=== PATIENT | female | born 1940 | race Caucasian/White ===

== ENCOUNTER 2017-06-16 07:29 | Inpatient (IN) ==
[2017-06-16] MEDS ORDERED: 0.9 % Sodium Chloride 1,000 ML IVC SCH ×2 (08:00→11:25)
[2017-06-16] MEDS ORDERED: *HR* FentaNYL (PF) 100 MCG/2 ML VIAL ONE ×3 (08:30→21:01)
[2017-06-16] MEDS ORDERED: *HR* Midazolam HCl 5 MG/5 ML VIAL IVP ONE ×2 (08:30→08:50)
[2017-06-16] MEDS ORDERED: *HR* FentaNYL (PF) 100 MCG/2 ML VIAL IVP ONE (08:50)
[2017-06-16] MEDS ORDERED: Simethicone 40 MG/0.6 ML MLS IR ONE (08:50)
--- NOTE | 2017-06-16 08:50 | History & Physical Report ---
Date of Encounter: 06/16/17 Time of Encounter: 08:49 24 Hour HP Update - Instructions Instructions: If the History and Physical is less than 30 days old and was completed prior to A.M. admission and or procedure and has NOT been updated on calendar day of procedure please complete this update prior to performing procedure. - Update Patient reports changes in Medical Condition: No Changes in examination, assessment, or condition: No Changes in Medication: No Preop tests/diagnostics Reviewed: Yes Surgery Remains Indicated: Yes Consent for Planned Operative Procedure(s) Verified: Yes
--- NOTE | 2017-06-16 08:51 | Pre-Sedation Evaluation ---
Pre-sedation evaluation - Pre-sedation checklist Date of procedure: 06/16/17 Procedure: egd/colon Recent Vitals: Last Vital Signs Temp 98.4 F 06/16/17 07:58 Pulse 92 06/16/17 07:58 Resp 16 06/16/17 07:58 BP 147/87 06/16/17 07:58 Pulse Ox 99 06/16/17 07:46 H&P (including ROS) documented in medical record: Yes Previous reaction to sedatives/anesthetics: No Dietary Status: NPO after Midnight Dentition: dentures removed Possible difficult airway: No ASA Classification *see protocol: CLASS II-Mild systemic disease
[2017-06-16] MEDS ORDERED: Ondansetron 4 MG/2 ML VIAL IVP PRN (11:14)
[2017-06-16] MEDS ORDERED: Naloxone 0.4 MG/ML INJ IVP PRN ×2 (11:14→22:35)
[2017-06-16] MEDS ORDERED: *HR* Metoprolol 5 MG/5 ML VIAL IVP PRN (11:22)
[2017-06-16] MEDS ORDERED: Acetaminophen 325 MG TABLET PO PRN ×2 (11:26→22:35)
[2017-06-16 12:36] LABS: Hematocrit 34.5 % (35.3-44.9); Immature Granulocytes % 0.4 % (0-4); Lymphocytes % 17.3 %; Mean Corpuscular HGB Conc 31.9 g/dL (31.6-35.5); Mean Corpuscular Hemoglobin 27.9 pg (28.0-33.3); Mean Corpuscular Volume 87.6 fL (83.0-100.0); Mean Platelet Volume 9.3 fL (9.4-12.4); Platelet Count 246 K/mcL (140-400); Red Blood Count 3.94 M/mcL (3.82-4.97); Red Cell Distribution Width 20.1 % (11.5-14.5)
[2017-06-16 12:37] LABS: Basophils % 0.9 %; Eosinophils # 0.1 K/mcL (0.0-0.6); Eosinophils % 2.7 %; Lymphocytes # 0.8 K/mcL (0.6-4.6); Monocytes # 0.3 K/mcL (0.0-1.3); Monocytes % 6.7 %; Neutrophils # 3.2 K/mcL (1.6-8.9)
[2017-06-16 12:43] LABS: INR 1.1; Prothrombin Time 11.3 Seconds (9.4-12.1)
[2017-06-16 12:50] LABS: Alanine Aminotransferase 15 Units/L (0-55); Albumin 3.4 g/dL (3.5-5.0); Albumin/Globulin Ratio 1.2 (1.1-2.2); Alkaline Phosphatase 83 Units/L (38-126); Aspartate Amino Transferase 17 Units/L (5-34); BUN/Creatinine Ratio 8 (6-26); Bilirubin,Total 0.4 mg/dL (0.2-1.2); Calcium 8.4 mg/dL (8.6-10.8); Carbon Dioxide 25 mEq/L (19-29); Chloride 107 mEq/L (98-109); Globulin 2.9 g/dL (2.4-3.5); Glucose 112 mg/dL (70-99); Osmolality,Calculated 284 (280-300); Potassium 3.9 mEq/L (3.5-4.5); Sodium 138 mEq/L (136-145); Total Protein 6.3 g/dL (6.0-8.3); eGFR For African Americans > 60 (> 60); eGFR For Non-African Americans > 60 (> 60)
[2017-06-16 12:56] LABS: Blood Urea Nitrogen 5 mg/dL (7-20)
[2017-06-16 13:11] LABS: Carcinoembryonic Antigen 3.1 ng/mL (0-5.0)
--- NOTE | 2017-06-16 13:23 | General Surg History&Physical ---
Date of Encounter: 06/16/17 Time of Encounter: 13:00 Assessment and Plan (1) Colonic mass Current Visit: Yes Status: Acute The assessment and plan as outlined above was discussed with the patient and/or family members who expressed understanding and agreement. All questions were answered. Clear liquid diet NPO after midnight IV fluids CT scan of abdomen and pelvis with PO and IV contrast Check labs- CBC, CMP, PT/INR, CEA Supportive care and pain control IS every 1 hour while awake Plan for colon resection with Dr. Germain in the next 24-48 hours. The risks, benefits, alternatives and expected outcomes have been reviewed with the patient and she is in agreement to proceed. (2) GERD (gastroesophageal reflux disease) Current Visit: Yes Status: Chronic The assessment and plan as outlined above was discussed with the patient and/or family members who expressed understanding and agreement. All questions were answered. PPI therapy daily Qualifiers: Esophagitis presence: esophagitis presence not specified Qualified Code(s) : K21.9 - Gastro-esophageal reflux disease without esophagitis (3) DVT prophylaxis Current Visit: No Status: Acute The assessment and plan as outlined above was discussed with the patient and/or family members who expressed understanding and agreement. All questions were answered. EPCDs to bilateral lower extremities for DVT prophylaxis Ambulate hallways TID with assistance History of Present Illness Chief complaint: Colon mass HPI: Ms. Romeo is a 77 year old female who is s/p EGD/Colonoscopy with Dr. Germain today. This was complete for iron deficiency anemia. She was found to have a colonic mass. She has been admitted to the hospital for further work-up and treatment. Please see complete H&P which was complete in [facility] on 05/31/[address] Germain. A copy has been placed in the patient's chart at the nurses station as well as in the medical records folder to be scanned into the patient's chart. Past Med Surg Social Fam HX - Past Medical History Medical history: arthritis, GERD, hyperlipidemia, hypertension, malignancy, osteoporosis, other Psychiatric history: no psych history - Past Surgical History Surgical History: breast surgery, cancer surgery, cataract, cholecystectomy, hysterectomy, sinus surgery, NOA/BSO, other - Social History Smoking Status: Former smoker Smokeless Tobacco Status: No Alcohol use: none Drug use: none - Family History Father Hx Family Cardiac Disorders: Yes Hx Family Cancer: Yes Medications and Allergies Lansoprazole [Prevacid] 30 mg PO DAILY 12/02/15 [History] Multivitamin [Multivitamins] 1 cap PO DAILY 12/02/15 [History] Aspirin [Lo-Dose Aspirin EC] 81 mg PO DAILY 04/02/16 [History] Cholecalciferol (D-3) [Vitamin D] 5,000 unit PO DAILY 04/02/16 [History] Calcium Carb/Vitamin D3/Vit K1 [Calcium + D Soft Chewable Tab] 2 each PO DAILY 11/09/16 [History] 3 Allergy/AdvReac Type Severity Reaction Status Date / Time "pain medications" AdvReac See Uncoded 06/16/17 08:04 Comments/ VOMITING Review of Systems All systems PM: A 10-system review of systems was performed and is negative for pertinent findings except as documented above in the HPI. General Surgery Exam Initial Vital Signs Temp Pulse Resp BP Pulse Ox 98.4 F 92 16 147/87 99 06/16/17 07:46 06/16/17 07:46 06/16/17 07:46 06/16/17 07:46 06/16/17 07:46 Results - Labs 06/16/17 12:11 06/16/17 12:11 Abnormal lab results Hgb 11.0 g/dL (11.5-15.4) L 06/16/17 12:11 Hct 34.5 % (35.3-44.9) L 06/16/17 12:11 MCH 27.9 pg (28.0-33.3) L 06/16/17 12:11 RDW 20.1 % (11.5-14.5) H 06/16/17 12:11 MPV 9.3 fL (9.4-12.4) L 06/16/17 12:11 BUN 5 mg/dL (7-20) L 06/16/17 12:11 Glucose 112 mg/dL (70-99) H 06/16/17 12:11 Calcium 8.4 mg/dL (8.6-10.8) L 06/16/17 12:11 Albumin 3.4 g/dL (3.5-5.0) L 06/16/17 12:11 Diabetes panel 06/16/17 Range/Units 12:11 Sodium 138 (136-145) mEq/L Potassium 3.9 (3.5-4.5) mEq/L Chloride 107 (98-109) mEq/L Carbon Dioxide 25 (19-29) mEq/L BUN 5 L (7-20) mg/dL Creatinine 0.64 (0.57-1.11) mg/dL Glucose 112 H (70-99) mg/dL Calcium 8.4 L (8.6-10.8) mg/dL AST 17 (5-34) Units/L ALT 15 (0-55) Units/L Alkaline Phosphatase 83 (38-126) Units/L Albumin 3.4 L (3.5-5.0) g/dL Calcium panel 06/16/17 Range/Units 12:11 Calcium 8.4 L (8.6-10.8) mg/dL Albumin 3.4 L (3.5-5.0) g/dL Pituitary panel 06/16/17 Range/Units 12:11 Sodium 138 (136-145) mEq/L Potassium 3.9 (3.5-4.5) mEq/L Chloride 107 (98-109) mEq/L Carbon Dioxide 25 (19-29) mEq/L BUN 5 L (7-20) mg/dL Creatinine 0.64 (0.57-1.11) mg/dL Glucose 112 H (70-99) mg/dL Calcium 8.4 L (8.6-10.8) mg/dL Adrenal panel 06/16/17 Range/Units 12:11 Sodium 138 (136-145) mEq/L Potassium 3.9 (3.5-4.5) mEq/L Chloride 107 (98-109) mEq/L Carbon Dioxide 25 (19-29) mEq/L BUN 5 L (7-20) mg/dL Creatinine 0.64 (0.57-1.11) mg/dL Glucose 112 H (70-99) mg/dL Calcium 8.4 L (8.6-10.8) mg/dL Total Bilirubin 0.4 (0.2-1.2) mg/dL AST 17 (5-34) Units/L ALT 15 (0-55) Units/L Alkaline Phosphatase 83 (38-126) Units/L Albumin 3.4 L (3.5-5.0) g/dL All other labs normal.
--- NOTE | 2017-06-16 16:10 | Anesthesia Evaluation PreOp ---
Date of Encounter: 06/16/17 Time of Encounter: 17:57 - Past History Planned Operation: robo ascending colectomy Cardiac History: HTN, Hyperlipidemia Pulmonary History: Former smoker TIN CAN FEEDER History: Denies Any Significant HX Other Medical History: GERD, Other (breast cancer,colon mass presumed cancer) Anesthesia History: No Prior Anesthetic Complications, Past Anesthesia (bresat sx, galen, NOA, sinus) : No Alcohol Use: none Drug use: none Medications and Allergies Lansoprazole [Prevacid] 30 mg PO DAILY 12/02/15 [History] Multivitamin [Multivitamins] 1 cap PO DAILY 12/02/15 [History] Aspirin [Lo-Dose Aspirin EC] 81 mg PO DAILY 04/02/16 [History] Cholecalciferol (D-3) [Vitamin D] 5,000 unit PO DAILY 04/02/16 [History] Calcium Carb/Vitamin D3/Vit K1 [Calcium + D Soft Chewable Tab] 2 each PO DAILY 11/09/16 [History] 3 Allergy/AdvReac Type Severity Reaction Status Date / Time "pain medications" AdvReac See Uncoded 06/16/17 08:04 Comments/ VOMITING - Meds/Allergy Pre-op Review Medications Reviewed: Yes Allergies Reviewed: Yes Beta Blockers on Current Med List: No Anesthesia Results - Labs 06/16/17 12:11 06/16/17 12:11 Anesthesia Exam Selected Entries 06/16/17 11:09 06/16/17 11:31 Temperature 97.8 F Pulse Rate 74 Respiratory Rate 15 Blood Pressure 144/77 O2 Sat by Pulse Oximetry 98 Oxygen Delivery Method Room Air Weight: 67kg NPO (# of Hours): >>8 - HEENT Pupil (Motor): EOMI Mallampati: II Teeth: Edentulous Oral Opening: Greater than 3 - TIN CAN FEEDER LOC: Oriented TIN CAN FEEDER Motor: Normal RUE, Normal LUE, Normal RLE, Normal LLE, Normal Face TIN CAN FEEDER Sensory: Normal: RUE, LUE, RLE, LLE, Face - Cardiac Rhythm: Regular Murmur: None - Pulmonary Breath Sounds: bilateral Clear Respiratory Effort: Symmetrical Anesthesia Assess/Plan ASA Score: 3 Modified Malinda Scale for Level of Consciousness: Cooperative, oriented, and tranquil Anesthetic Plan: General Monitoring Plan: Standard Monitors Recovery Plan: PACU (discussed GA with patient, agrees to proceed)
[2017-06-16] MEDS ORDERED: Ondansetron 4 MG/2 ML VIAL ONE (17:38)
[2017-06-16] MEDS ORDERED: *HR* Propofol 200 MG/20 ML VIAL IVP ONE (17:38)
[2017-06-16] MEDS ORDERED: *HR* Rocuronium Bromide 50 MG/5 ML VIAL ONE (17:38)
[2017-06-16] MEDS ORDERED: Neostigmine Methylsulfate 3 MG/3 ML SYRINGE ONE (17:38)
[2017-06-16] MEDS ORDERED: Lidocaine -MPF 2% 2 ML VIAL ONE (17:38)
[2017-06-16] MEDS ORDERED: Dexamethasone 4 MG/ML VIAL ONE (19:45)
[2017-06-16] MEDS ORDERED: CefOXitin 2,000 MG VIAL ONE (19:47)
[2017-06-16] MEDS ORDERED: EPHEDrine 50 MG/ML VIAL ONE (20:23)
[2017-06-16] MEDS ORDERED: *HR* Midazolam HCl 2 MG/2 ML VIAL ONE (20:23)
--- NOTE | 2017-06-16 22:21 | Anesthesia Evaluation Post Op ---
Date of Encounter: 06/16/17 Time of Encounter: 22:20 - Vital Signs Vital Signs: Vital Signs/O2 Sat, Most Current Temp Pulse Resp BP Pulse Ox 98.2 F 99 20 137/79 95 06/16/17 22:13 06/16/17 22:13 06/16/17 22:13 06/16/17 22:13 06/16/17 22:13 - Lungs Lungs: Clear Ascult./Percussion - Airway Airway: Non-obstructed - Cardiovascular Regular Rate - Mental Status Mental Status: Alert & Oriented, Answers Appropriately - Pain Pain Scale: 0 Pain Scale used: Numeric (1 - 10) - Nausea Vomiting Nausea Vomiting: Not Present - Hydration Hydration: NPO, Has not voided - Discharge PostOp Status: Transfer Patient to floor
[2017-06-16] MEDS ORDERED: *HR* HYDROmorphone 20 MG/20 ML PCA IVC PRN (22:35)
[2017-06-16] MEDS: Ondansetron 4 MG/2 ML VIAL IVP PRN (23:30)
[2017-06-17] MEDS: Pantoprazole 40 MG VIAL IVP SCH (05:54)
[2017-06-17] MEDS: 0.9 % Sodium Chloride 1,000 ML IVC SCH (08:55)
[2017-06-17] MEDS ORDERED: Pantoprazole 40 MG VIAL IVP SCH (09:00)
[2017-06-17] MEDS ORDERED: *HR* HYDROmorphone (PF) 1 MG/ML SYRINGE IVP PRN (10:12)
--- NOTE | 2017-06-17 10:13 | General Surgery Progress Note ---
Date of Encounter: 06/17/17 Time of Encounter: 10:00 - Assessment and Plan (1) Colonic mass Current Visit: Yes Status: Acute POD #1 ascending colon resection with Dr. Germain Pathology pending CEA 3.1 Clear liquid diet with protein supplements TID IV fluids- 75ml/hour Supportive care and pain control- Scheduled ibuprofen and tylenol, prn dilaudid IS every 1 hour while awake Ambulate hallways TID with assistance (2) GERD (gastroesophageal reflux disease) Current Visit: Yes Status: Chronic PPI therapy daily Qualifiers: Esophagitis presence: esophagitis presence not specified Qualified Code(s) : K21.9 - Gastro-esophageal reflux disease without esophagitis (3) DVT prophylaxis Current Visit: No Status: Acute EPCDs to bilateral lower extremities for DVT prophylaxis Ambulate hallways TID with assistance Subjective Patient reports: no new complaints, no flatus, no bowel movement, nausea ( controlled with Zofran), vomiting (last evening), afebrile Objective Vital Signs - Last 8 Hours Temp Pulse Resp BP Pulse Ox 06/17/17 07:13 98.3 F 103 16 125/71 97 06/17/17 03:54 98.0 F 105 16 135/72 93 Intake and Output 06/16/17 06/17/17 06/17/17 23:59 07:59 15:59 Intake Total 150 / 150 Output Total 1020 / 1020 600 / 600 Balance -1020 / -1020 -450 / -450 Intake: Oral 150 / 150 Output: Urine 1000 / 1000 0 / 0 Emesis 600 / 600 Estimated Blood Loss 20 / 20 Other: # Voids 0 - General physical appearance well developed, well nourished, no distress - Eyes normal ocular movement - ENT normal mucosa, atraumatic, normocephalic - Neck Neck exam: trachea midline - Respiratory normal respiratory effort, clear to auscultation - Cardiovascular Cardiovascular exam: Present: tachycardia - Abdomen Abdomen: Present: bowel sounds present (hypoactive), soft, tender (minimal, expected post-operative tenderness) - Incision Incision: Present: clean and dry, intact - Neurologic CN 2-12 grossly intact - Psychiatric oriented to time, oriented to person, oriented to place, speech is normal, memory intact - Labs 06/16/17 12:11 06/16/17 12:11 Diabetes panel 06/16/17 Range/Units 12:11 Sodium 138 (136-145) mEq/L Potassium 3.9 (3.5-4.5) mEq/L Chloride 107 (98-109) mEq/L Carbon Dioxide 25 (19-29) mEq/L BUN 5 L (7-20) mg/dL Creatinine 0.64 (0.57-1.11) mg/dL Glucose 112 H (70-99) mg/dL Calcium 8.4 L (8.6-10.8) mg/dL AST 17 (5-34) Units/L ALT 15 (0-55) Units/L Alkaline Phosphatase 83 (38-126) Units/L Albumin 3.4 L (3.5-5.0) g/dL Calcium panel 06/16/17 Range/Units 12:11 Calcium 8.4 L (8.6-10.8) mg/dL Albumin 3.4 L (3.5-5.0) g/dL Pituitary panel 06/16/17 Range/Units 12:11 Sodium 138 (136-145) mEq/L Potassium 3.9 (3.5-4.5) mEq/L Chloride 107 (98-109) mEq/L Carbon Dioxide 25 (19-29) mEq/L BUN 5 L (7-20) mg/dL Creatinine 0.64 (0.57-1.11) mg/dL Glucose 112 H (70-99) mg/dL Calcium 8.4 L (8.6-10.8) mg/dL Adrenal panel 06/16/17 Range/Units 12:11 Sodium 138 (136-145) mEq/L Potassium 3.9 (3.5-4.5) mEq/L Chloride 107 (98-109) mEq/L Carbon Dioxide 25 (19-29) mEq/L BUN 5 L (7-20) mg/dL Creatinine 0.64 (0.57-1.11) mg/dL Glucose 112 H (70-99) mg/dL Calcium 8.4 L (8.6-10.8) mg/dL Total Bilirubin 0.4 (0.2-1.2) mg/dL AST 17 (5-34) Units/L ALT 15 (0-55) Units/L Alkaline Phosphatase 83 (38-126) Units/L Albumin 3.4 L (3.5-5.0) g/dL - VTE Documentation of Mechanical Device: Intermittent pneumatic compression device Consult Discharge Plan - Plan Referrals: Sara Pfeiffer, AIRLINE SECURITY REPRESENTATIVE [Primary Care Provider] - - Attending Attestation For this encounter, I have reviewed the REFERENCE INVESTIGATOR or PA documentation, treatment plan, and medical decision making; and I have had face to face time with this patient.
[2017-06-17] MEDS ORDERED: 0.9 % Sodium Chloride 500 ML IVC ONE (10:21)
[2017-06-17] MEDS: Ibuprofen 600 MG TABLET PO SCH ×2 (14:40→19:19)
[2017-06-17] MEDS: Acetaminophen 325 MG TABLET PO SCH ×2 (14:41→14:58)
[2017-06-17] MEDS: *HR* Heparin 5,000 UNIT/ML VIAL SQ SCH (17:53)
[2017-06-18] MEDS: Ibuprofen 600 MG TABLET PO SCH ×4 (00:07→17:38)
[2017-06-18] MEDS: Ondansetron 4 MG/2 ML VIAL IVP PRN ×2 (02:28→16:29)
[2017-06-18] MEDS: *HR* Metoprolol 5 MG/5 ML VIAL IVP PRN ×2 (02:29→19:51)
[2017-06-18] MEDS: 0.9 % Sodium Chloride 1,000 ML IVC SCH ×2 (02:37→20:12)
[2017-06-18] MEDS: *HR* Heparin 5,000 UNIT/ML VIAL SQ SCH ×2 (05:46→17:38)
[2017-06-18] MEDS: Pantoprazole 40 MG VIAL IVP SCH (05:46)
[2017-06-18 06:45] LABS: BUN/Creatinine Ratio 11 (6-26); Blood Urea Nitrogen 7 mg/dL (7-20); Calcium 7.8 mg/dL (8.6-10.8); Carbon Dioxide 17 mEq/L (19-29); Chloride 105 mEq/L (98-109); Glucose 130 mg/dL (70-99); Osmolality,Calculated 278 (280-300); Potassium 3.4 mEq/L (3.5-4.5); Sodium 134 mEq/L (136-145); eGFR For African Americans > 60 (> 60); eGFR For Non-African Americans > 60 (> 60)
[2017-06-18] MEDS ORDERED: Potassium Chloride 20 MEQ, Lidocaine 1% 2 ML in D5% in Water 250 ML IVPB ONE (08:55)
--- NOTE | 2017-06-18 08:56 | General Surgery Progress Note ---
Date of Encounter: 06/18/17 Time of Encounter: 08:25 - Assessment and Plan (1) Colonic mass Current Visit: Yes Status: Acute The patient is experiencing postoperative ileus after robotic right hemicolectomy. I will make her nothing by mouth today. We will start Reglan therapy. She may require nasogastric tube. (2) Hypokalemia due to loss of potassium Current Visit: Yes Status: Acute The patient has developed hypokalemia secondary to vomiting. She will receive 20 mEq of potassium today IV piggyback Subjective Narrative: The patient had robotic right hemicolectomy. Since that time she has had intermittent vomiting. She states that she had flatus today and she has bowel sounds. She has had 2 episodes of vomiting since midnight totaling over 1000 mL. I have made her nothing by mouth. We discussed nasogastric tube versus Reglan therapy. The patient will like to try a trial of Reglan therapy to avoid the nasogastric tube and I think this is reasonable since she is passing flatus and has bowel sounds. The incisions are clean and dry vital signs are otherwise stable Objective Vital Signs - Last 8 Hours Temp Pulse Resp BP Pulse Ox 06/18/17 04:54 98.1 F 89 16 179/81 95 06/18/17 01:35 98.9 F 98 15 179/64 96 Intake and Output 06/17/17 06/18/17 06/18/17 23:59 07:59 15:59 Intake Total 1360 / 1360 Output Total 0 / 0 500 / 500 Balance 1360 / 1360 -500 / -500 Intake: IV Fluids 1000 / 1000 0.9 % Sodium Chloride 1,000 ML 1000 / 1000 @ 75 mls/hr IVC .[id number] [facility] Rx #:[id number] Oral 360 / 360 Output: Urine 0 / 0 0 / 0 Emesis 500 / 500 Other: Meal Dinner # Voids 1 Weight 67 kg Patient Weight 06/18/17 23:59 Weight 67 kg - General physical appearance well developed, well nourished, moderate distress - Respiratory normal expansion, normal respiratory effort, clear to percussion, clear to auscultation - Cardiovascular Cardiovascular exam: Present: RRR, no murmurs/rubs/gallops - Abdomen Abdomen: Present: bowel sounds present, soft, non tender - Incision Incision: Present: clean and dry - Neurologic normal coordination, normal sensation - Psychiatric oriented to time, oriented to person, oriented to place, speech is normal, memory intact - Labs 06/16/17 12:11 06/18/17 05:42 Diabetes panel 06/18/17 Range/Units 05:42 Sodium 134 L (136-145) mEq/L Potassium 3.4 L (3.5-4.5) mEq/L Chloride 105 (98-109) mEq/L Carbon Dioxide 17 L (19-29) mEq/L BUN 7 (7-20) mg/dL Creatinine 0.63 (0.57-1.11) mg/dL Glucose 130 H (70-99) mg/dL Calcium 7.8 L (8.6-10.8) mg/dL Calcium panel 06/18/17 Range/Units 05:42 Calcium 7.8 L (8.6-10.8) mg/dL Pituitary panel 06/18/17 Range/Units 05:42 Sodium 134 L (136-145) mEq/L Potassium 3.4 L (3.5-4.5) mEq/L Chloride 105 (98-109) mEq/L Carbon Dioxide 17 L (19-29) mEq/L BUN 7 (7-20) mg/dL Creatinine 0.63 (0.57-1.11) mg/dL Glucose 130 H (70-99) mg/dL Calcium 7.8 L (8.6-10.8) mg/dL Adrenal panel 06/18/17 Range/Units 05:42 Sodium 134 L (136-145) mEq/L Potassium 3.4 L (3.5-4.5) mEq/L Chloride 105 (98-109) mEq/L Carbon Dioxide 17 L (19-29) mEq/L BUN 7 (7-20) mg/dL Creatinine 0.63 (0.57-1.11) mg/dL Glucose 130 H (70-99) mg/dL Calcium 7.8 L (8.6-10.8) mg/dL - VTE Documentation of Mechanical Device: Intermittent pneumatic compression device Consult Discharge Plan - Plan Referrals: Sara Pfeiffer, MANAGER DISH [Primary Care Provider] -
[2017-06-18] MEDS: Metoclopramide 20 MG in 0.9 % Sodium Chloride 50 ML IVPB SCH ×2 (10:45→17:44)
[2017-06-19] MEDS: Metoclopramide 20 MG in 0.9 % Sodium Chloride 50 ML IVPB SCH ×2 (01:30→09:39)
[2017-06-19] MEDS: Ibuprofen 600 MG TABLET PO SCH ×3 (01:48→13:00)
[2017-06-19 05:16] LABS: Hematocrit 33.5 % (35.3-44.9); Hemoglobin 10.9 g/dL (11.5-15.4); Mean Corpuscular HGB Conc 32.5 g/dL (31.6-35.5); Mean Corpuscular Hemoglobin 27.9 pg (28.0-33.3); Mean Corpuscular Volume 85.9 fL (83.0-100.0); Mean Platelet Volume 9.9 fL (9.4-12.4); Monocytes # 0.6 K/mcL (0.0-1.3); Platelet Count 308 K/mcL (140-400); Red Cell Distribution Width 20.3 % (11.5-14.5)
[2017-06-19 05:19] LABS: BUN/Creatinine Ratio 14 (6-26); Blood Urea Nitrogen 10 mg/dL (7-20); Calcium 7.5 mg/dL (8.6-10.8); Chloride 108 mEq/L (98-109); Glucose 117 mg/dL (70-99); Osmolality,Calculated 282 (280-300); Potassium 3.2 mEq/L (3.5-4.5); Sodium 136 mEq/L (136-145); eGFR For African Americans > 60 (> 60); eGFR For Non-African Americans > 60 (> 60)
[2017-06-19 05:57] LABS: Lymphocytes # 1.1 K/mcL (0.6-4.6); Neutrophils # 7.5 K/mcL (1.6-8.9)
[2017-06-19] MEDS ORDERED: Acetaminophen IV 1,000 MG/100 ML INFUS..BTL IVPB ONE ×2 (06:00)
[2017-06-19 06:02] LABS: Anisocytosis 2+ (Not Present)
[2017-06-19 06:03] LABS: Platelet Estimate Normal (Normal); Polychromasia 1+ (Not Present)
[2017-06-19 06:17] LABS: Carbon Dioxide 19 mEq/L (19-29)
[2017-06-19] MEDS: Pantoprazole 40 MG VIAL IVP SCH (06:18)
[2017-06-19] MEDS: *HR* Heparin 5,000 UNIT/ML VIAL SQ SCH ×2 (06:19→17:29)
--- NOTE | 2017-06-19 09:27 | General Surgery Progress Note ---
Date of Encounter: 06/19/17 Time of Encounter: 09:00 - Assessment and Plan (1) Colonic mass Current Visit: Yes Status: Acute The patient is experiencing postoperative ileus after robotic right hemicolectomy. I will make her nothing by mouth today. We will start Reglan therapy. She may require nasogastric tube. 06/19/2017. The patient has had no nausea or vomiting for the last 24 hours. I think it is appropriate to go ahead and start her on clear liquids today. Incision is clean and dry. She has good bowel sounds. (2) Hypokalemia due to loss of potassium Current Visit: Yes Status: Acute The patient has developed hypokalemia secondary to vomiting. She will receive 20 mEq of potassium today IV piggyback 06/19/2017 the patient has persistent hypokalemia at 3.2. We will continue replacement with IV piggyback 40 mEq Subjective Narrative: The patient has had no vomiting in the last 24 hours. She has good bowel sounds. She has a small bowel movement yesterday. She had flatus yesterday but not today. She is not nauseated. I think it is reasonable to start her back on clear liquids. Her hypokalemia still present with a potassium of 3.2. We will replace her potassium with IV piggyback. Objective Vital Signs - Last 8 Hours Temp Pulse Resp BP Pulse Ox 06/19/17 03:45 98.0 F 105 15 120/70 94 Intake and Output 06/18/17 06/19/17 06/19/17 23:59 07:59 15:59 Intake Total 1054 / 1054 154 / 154 Output Total 0 / 0 300 / 300 Balance 1054 / 1054 -146 / -146 Intake: IV Fluids 1054 / 1054 154 / 154 0.9 % Sodium Chloride 1,000 ML 1000 / 1000 @ 75 mls/hr IVC .[id number] [facility] Rx #:[id number] Ofirmev 1,000 mg/100 ml 1,000 100 / 100 mg In 100 ml @ 400 mls/hr IVPB Q6HR ONE Rx#:[id number] Reglan 20 MG In 0.9 % Sodium 54 / 54 54 / 54 Chloride 50 ML @ 108 mls/hr IVPB Q8H [facility] Rx#:[id number] Oral 0 / 0 0 / 0 Output: Urine 0 / 0 300 / 300 Other: Weight 66.7 kg Blood Glucose* 105 Patient Weight 06/19/17 23:59 Weight 66.7 kg - General physical appearance chronically ill - Respiratory normal expansion, normal respiratory effort, clear to percussion, clear to auscultation - Cardiovascular Cardiovascular exam: Present: RRR, no murmurs/rubs/gallops - Abdomen Abdomen: Present: bowel sounds present, soft, non tender - Incision Incision: Present: clean and dry - Neurologic normal coordination, normal sensation - Psychiatric oriented to time, oriented to person, oriented to place, speech is normal, memory intact - Labs 06/19/17 04:07 06/19/17 04:07 Diabetes panel 06/19/17 Range/Units 04:07 Sodium 136 (136-145) mEq/L Potassium 3.2 L (3.5-4.5) mEq/L Chloride 108 (98-109) mEq/L Carbon Dioxide 19 (19-29) mEq/L BUN 10 (7-20) mg/dL Creatinine 0.70 (0.57-1.11) mg/dL Glucose 117 H (70-99) mg/dL Calcium 7.5 L (8.6-10.8) mg/dL Calcium panel 06/19/17 Range/Units 04:07 Calcium 7.5 L (8.6-10.8) mg/dL Pituitary panel 06/19/17 Range/Units 04:07 Sodium 136 (136-145) mEq/L Potassium 3.2 L (3.5-4.5) mEq/L Chloride 108 (98-109) mEq/L Carbon Dioxide 19 (19-29) mEq/L BUN 10 (7-20) mg/dL Creatinine 0.70 (0.57-1.11) mg/dL Glucose 117 H (70-99) mg/dL Calcium 7.5 L (8.6-10.8) mg/dL Adrenal panel 06/19/17 Range/Units 04:07 Sodium 136 (136-145) mEq/L Potassium 3.2 L (3.5-4.5) mEq/L Chloride 108 (98-109) mEq/L Carbon Dioxide 19 (19-29) mEq/L BUN 10 (7-20) mg/dL Creatinine 0.70 (0.57-1.11) mg/dL Glucose 117 H (70-99) mg/dL Calcium 7.5 L (8.6-10.8) mg/dL - VTE Documentation of Mechanical Device: Intermittent pneumatic compression device Consult Discharge Plan - Plan Referrals: Sara Pefiffer CNP [Primary Care Provider] -
[2017-06-19] MEDS ORDERED: Potassium Chloride 40 MEQ, Lidocaine 1% 2 ML in D5% in Water 500 ML IVPB ONE (09:28)
[2017-06-19] MEDS: Ondansetron 4 MG/2 ML VIAL IVP PRN (13:01)
[2017-06-19] MEDS: 0.9 % Sodium Chloride 1,000 ML IVC SCH ×2 (13:02→13:03)
[2017-06-19] MEDS ORDERED: Ibuprofen 600 MG TABLET PO PRN (15:53)
[2017-06-19] MEDS ORDERED: *HR* Digoxin 0.5 MG/2 ML AMPUL IVP ONE (17:32)
[2017-06-19] MEDS ORDERED: Potassium Chloride Elixir 20 MEQ/15 ML UDC PO ONE (17:33)
[2017-06-19 18:36] LABS: Magnesium 1.8 mg/dL (1.6-2.6)
[2017-06-19] MEDS ORDERED: Magnesium Sulfate 2 GM in D5% in Water 100 ML IVPB ONE (21:36)
[2017-06-19] MEDS ORDERED: *HR* Heparin 5,000 UNIT/ML VIAL IVP PRN ×2 (21:37)
[2017-06-19] MEDS ORDERED: *HR* Heparin 5,000 UNIT/ML VIAL IVP ONE (21:37)
--- NOTE | 2017-06-19 21:41 | Internal Medicine Consult Note ---
Date of Encounter: 06/19/17 Time of Encounter: 21:39 - Assessment and Plan (1) New onset a-fib Current Visit: Yes Status: Acute Assessment and plan: appears new correct Mg and K to keep >2 and 4 respectively Will attempt to spare gtt therapy. Start cardizem QID PO Check TTE given heart murmur Heparin gtt during the andrey-operative period. Consider DOACs once stable and ready for home Internal Medicine - CN: HPI - Data of Consult Consult date: 06/19/17 Requesting Physician: Loi Germain, DO - Consult Narrative Reason for consult: AFib History of present illness: Ms. Romeo is a 77 year old female who presents with elective ascending colon resection for colon mass completed 06/16/17. Post-operative course, she developed AFib RVR. Medicine consult for AFib management. It appears that she is minimally symptomatic w/o SOB or palpitation. EKG personally reviewed with rate 162, AFib. She has a heart murmur that she did not know. She also has chronic LLE > RLE swelling that is not new. She is recovering well post-op, except with some nausea with food. Past Med Surg Social Fam HX - Past Medical History Medical history: arthritis, GERD, hyperlipidemia, hypertension, malignancy, osteoporosis, other Psychiatric history: no psych history - Past Surgical History Surgical History: breast surgery, cancer surgery, cataract, cholecystectomy, hysterectomy, sinus surgery, NOA/BSO, other - Social History Smoking Status: Former smoker Smokeless Tobacco Status: No Alcohol use: none Drug use: none - Family History Father Hx Family Cardiac Disorders: Yes Hx Family Cancer: Yes Review of systems: ROS 14 point review of systems reviewed as best as possible given presentation. Pertinent positive or negative as per HPI or otherwise reviewed as negative Internal Medicine - CN: Meds Lansoprazole [Prevacid] 30 mg PO DAILY 12/02/15 [History] Multivitamin [Multivitamins] 1 cap PO DAILY 12/02/15 [History] Aspirin [Lo-Dose Aspirin EC] 81 mg PO DAILY 04/02/16 [History] Cholecalciferol (D-3) [Vitamin D] 5,000 unit PO DAILY 04/02/16 [History] Calcium Carb/Vitamin D3/Vit K1 [Calcium + D Soft Chewable Tab] 2 each PO DAILY 11/09/16 [History] 3 Allergy/AdvReac Type Severity Reaction Status Date / Time "pain medications" AdvReac See Uncoded 06/16/17 08:04 Comments/ VOMITING Internal Medicine - CN: Exam - Constitutional Vitals: Temp Pulse Resp BP Pulse Ox 97.5 F L 102 15 134/75 98 06/19/17 21:28 06/19/17 21:28 06/19/17 21:28 06/19/17 21:28 06/19/17 21:28 Exam: General - AAO x 3 Psych - Appropriate affect/speech. No agitation Eyes - SANDI. Eye lids intact. No scleral icterus Heart - Irregularly irregular. S1 and S2 present. No added HS/murmurs appreciated. No elevated JVD appreciated. Lung - Adequate air entry b/l, No crackles/wheezes appreciated GI - Surgical scars. Soft, non-tender. No hepatosplenomegaly/ascites. BS+ - No CVA/suprapubic tenderness or palpable bladder distension Skin - Intact. No rash/petechiae/ecchymosis. Warm extremities - LLE > RLE that is not new Internal Medicine - CN: Reslt - Labs CBC & Chem 7: 06/19/17 04:07 06/19/17 18:00 Labs: Short CBC 06/19/17 Range/Units 04:07 WBC 9.2 D (4.3-11.1) K/mcL Hgb 10.9 L (11.5-15.4) g/dL Hct 33.5 L (35.3-44.9) % Plt Count 308 (140-400) K/mcL Neutrophils # 7.5 (1.6-8.9) K/mcL BMP 06/19/17 06/19/17 04:07 18:00 Sodium 136 Potassium 3.2 L 3.0 L Chloride 108 Carbon Dioxide 19 BUN 10 Creatinine 0.70 Glucose 117 H Calcium 7.5 L Cardiac Enzymes 06/19/17 Range/Units 18:00 Troponin I 0.15 H* (0-0.03) ng/mL - ABG Interpretation ABG results: PT/INR, D-dimer PT 11.3 Seconds (9.4-12.1) 06/16/17 12:11 Consult Discharge Plan - Plan Referrals: Sara Pfeiffer, MANAGER MARKET RESEARCH [Primary Care Provider] -
[2017-06-19] MEDS ORDERED: Heparin 25,000 UNIT/500 ML D5W 25,000 UNIT/500 ML BAG IVC SCH (21:45)
[2017-06-19] MEDS ORDERED: 0.9 % Sodium Chloride w KCl 20 MEQ/1,000 ML MLS IVC SCH (21:45)
[2017-06-20] MEDS ORDERED: dilTIAZem HCl 60 MG TABLET PO SCH
[2017-06-20] MEDS ORDERED: dilTIAZem HCl 100 MG in D5% in Water 50 ML IVC SCH (00:30)
[2017-06-20 03:36] LABS: Magnesium 3.1 mg/dL (1.6-2.6)
[2017-06-20] MEDS: 0.9 % Sodium Chloride w KCl 40 MEQ/1,000 ML MLS IVC SCH ×2 (03:39→19:27)
[2017-06-20] MEDS: *HR* Metoprolol 5 MG/5 ML VIAL IVP PRN ×4 (03:39→20:32)
[2017-06-20 03:40] LABS: BUN/Creatinine Ratio 29 (6-26); Calcium 7.7 mg/dL (8.6-10.8); Carbon Dioxide 18 mEq/L (19-29); Chloride 103 mEq/L (98-109); Glucose 130 mg/dL (70-99); Osmolality,Calculated 289 (280-300); Potassium 3.1 mEq/L (3.5-4.5); Sodium 137 mEq/L (136-145); eGFR For African Americans > 60 (> 60); eGFR For Non-African Americans > 60 (> 60)
[2017-06-20 03:42] LABS: Blood Urea Nitrogen 21 mg/dL (7-20)
[2017-06-20] MEDS: Pantoprazole 40 MG VIAL IVP SCH (07:48)
--- NOTE | 2017-06-20 10:33 | General Surgery Progress Note ---
Date of Encounter: 06/20/17 Time of Encounter: 10:33 - Assessment and Plan (1) Colonic mass Current Visit: Yes Status: Acute POD #4 s/p Robotic right hemicoloectomy 06/16/2017 (pathology pending) Episode of vomiting Tuesday which was treated conservatively. Tuesday she tolerated small amounts of clear liquids; Reports episode of vomiting this am, anorexia, and nausea. ABS in all for quadrants. Her abdomen is nontender. She reports one episode of loose stool 06/19/17 which she reports looked bloody. Plan: Repeat am labs Clear liquid diet. if she vomits again, she may require an NG tube Will obtain 2-view abdominal series Add Reglan for bowel stimulation continue G.I. and DVT prophylaxis continue comfort measures out of bed TID with assistance. Will consult PT and OT for mobilization in DC planning. (2) Postoperative ileus Current Visit: Yes Status: Acute See plan above (3) Electrolyte imbalance Current Visit: Yes Status: Acute Replace electrolytes as indicated. Will place Powerglide given poor IV access and need for at least 20guage PIV (4) Anemia Current Visit: Yes Status: Chronic Acute on chronic anemia. Repeat AM labs. Qualifiers: Anemia type: other cause Other causes of anemia: chronic disease, other Qualified Code(s): D63.8 - Anemia in other chronic diseases classified elsewhere (5) New onset a-fib Current Visit: Yes Status: Acute New onset this admission. Noted increased TNI. Management per primary medicine, ok to consult cardiology if primary medicine feels necessary. Noted TTE today, results pending Subjective Patient reports: no new complaints, still having pain, pain is less, voiding w/ o difficulty, no flatus, bowel movement (reports liquid, dark stool 06/20), blood in stool (per [employer]), nausea, vomiting (vomiting x1 episode after attempting jello.), afebrile Objective Vital Signs - Last 8 Hours Temp Pulse Resp BP Pulse Ox 06/20/17 07:24 97.9 F 81 15 153/78 95 06/20/17 03:19 98.2 F 104 15 152/76 95 Intake and Output 06/19/17 06/20/17 06/20/17 23:59 07:59 15:59 Intake Total 0 / 0 Output Total 400 / 400 650 / 650 Balance -400 / -400 -650 / -650 Intake: Oral 0 / 0 Output: Urine 400 / 400 650 / 650 Other: Meal Dinner Percent of Meal Consumed 0% Stool Size Small Stool Consistency loose Stool Color Brown Dark Red Blood # Bowel Movements 0 Weight 66.98 kg Patient Weight 06/20/17 23:59 Weight 66.98 kg - General physical appearance no distress, other (sitting upright in chair at bedside) - Eyes normal ocular movement - ENT atraumatic, normocephalic - Neck Neck exam: trachea midline, no venous distension - Respiratory normal expansion, normal respiratory effort, clear to auscultation - Cardiovascular Cardiovascular exam: Present: irregular rhythm, murmurs - Abdomen Abdomen: Present: bowel sounds present, soft, non tender Hernia: none - Integumentary no growths, no abnormal pigmentation - Neurologic CN 2-12 grossly intact, normal coordination, normal sensation - Musculoskeletal normal posture - Psychiatric oriented to time, oriented to person, oriented to place, speech is normal, memory intact - Labs 06/19/17 04:07 06/20/17 02:56 Diabetes panel 06/19/17 06/20/17 Range/Units 18:00 02:56 Sodium 137 (136-145) mEq/L Potassium 3.0 L 3.1 L (3.5-4.5) mEq/L Chloride 103 (98-109) mEq/L Carbon Dioxide 18 L (19-29) mEq/L BUN 21 H D (7-20) mg/dL Creatinine 0.72 (0.57-1.11) mg/dL Glucose 130 H (70-99) mg/dL Calcium 7.7 L (8.6-10.8) mg/dL Calcium panel 06/20/17 Range/Units 02:56 Calcium 7.7 L (8.6-10.8) mg/dL Pituitary panel 06/19/17 06/20/17 Range/Units 18:00 02:56 Sodium 137 (136-145) mEq/L Potassium 3.0 L 3.1 L (3.5-4.5) mEq/L Chloride 103 (98-109) mEq/L Carbon Dioxide 18 L (19-29) mEq/L BUN 21 H D (7-20) mg/dL Creatinine 0.72 (0.57-1.11) mg/dL Glucose 130 H (70-99) mg/dL Calcium 7.7 L (8.6-10.8) mg/dL Adrenal panel 06/19/17 06/20/17 Range/Units 18:00 02:56 Sodium 137 (136-145) mEq/L Potassium 3.0 L 3.1 L (3.5-4.5) mEq/L Chloride 103 (98-109) mEq/L Carbon Dioxide 18 L (19-29) mEq/L BUN 21 H D (7-20) mg/dL Creatinine 0.72 (0.57-1.11) mg/dL Glucose 130 H (70-99) mg/dL Calcium 7.7 L (8.6-10.8) mg/dL - VTE Documentation of Mechanical Device: Intermittent pneumatic compression device Consult Discharge Plan - Plan Referrals: Sara Pfeiffer, MENTAL RETARDATION NURSE [Primary Care Provider] -
[2017-06-20] MEDS ORDERED: Potassium Chloride 40 MEQ, Lidocaine 1% 2 ML in D5% in Water 500 ML IVPB ONE (11:15)
[2017-06-20] MEDS: Metoclopramide 10 MG/2 ML VIAL IVP SCH ×2 (13:01→18:56)
[2017-06-20] MEDS ORDERED: 0.9 % Sodium Chloride 500 ML ONE (14:34)
[2017-06-20] MEDS ORDERED: Lidocaine Jelly 11 ml Syringe TP STA (15:18)
--- NOTE | 2017-06-20 16:02 | Event Note ---
Date of Encounter: 06/20/17 Time of Encounter: 15:45 NG tube placed to left nares. Immediate return of 1800 ML feculent material noted. Pt states she will accept Reglan now that NG is in.
--- NOTE | 2017-06-20 16:23 | Internal Med Progress Note ---
Date of Encounter: 06/20/17 Time of Encounter: 14:40 - Assessment and plan (1) New onset a-fib Current Visit: Yes Status: Acute Assessment and plan: Converted to NSR y/d triggered by surgery stress Rate controlled now on Lopresor IV will use IV Cardizem PRN too if needed Her CHADSVASC -2 Probably she might be ok with ASA for anticoag however unable to give her anything now due to GI bleed (2) NSTEMI (non-ST elevated myocardial infarction) Current Visit: Yes Status: Acute Assessment and plan: Due to new onset A fib demand ischemia Trending down trop Asymptomatic Unable to give ASA due to GI bleed Echo showed preserved LVEF 65%, Mild LV diastolic dysfunction. (3) GI bleed Current Visit: Yes Status: Acute Assessment and plan: GI bleed probably post op related cont close monitoring Hb So farstab;e Hb @ 10.9 , will chec today labs Qualifiers: Qualified Code(s): K92.2 - Gastrointestinal hemorrhage, unspecified (4) Colonic mass Current Visit: Yes Status: Acute Assessment and plan: s/p makayla colectomy cont post op care as per primary team surgery since she still has nausea / vomiting - will keep her NPO (5) GERD (gastroesophageal reflux disease) Current Visit: Yes Status: Chronic Qualifiers: Esophagitis presence: esophagitis presence not specified Qualified Code(s) : K21.9 - Gastro-esophageal reflux disease without esophagitis (6) Encounter for follow-up surveillance of breast cancer Current Visit: No Status: Acute - Subjective Interval history: Ms. Romeo is a 77 year old female with known breast cancer s/p mastectomy, who had elective colonoscopy and found to have colon mass for which she had ascending colon resection on same day completed on 06/16/[address] Germain. Post- operative course, she developed AFib RVR. Now pt is in NSR, with IV lopressor PRN and Cardizem PRN. Apparently she had a cule dark colored stools last night, so unable to give her anti coagulation. She also had one episode of vomiting this morning. She denied any CP / SOB - Constitutional Vitals: Temp Pulse Resp BP Pulse Ox 98.3 F 104 14 141/76 97 06/20/17 14:14 06/20/17 14:14 06/20/17 14:14 06/20/17 14:14 06/20/17 14:14 General appearance: Present: A&O X 3, no acute distress, answers questions appropriately - Head Head exam: Present: atraumatic, normal inspection - Neck Neck exam general surgery: Present: supple - Respiratory Respiratory exam: Present: decreased breath sounds. Absent: rales, respiratory distress, rhonchi, wheezes - Cardiovascular Cardiovascular exam: Present: RRR, +S1, +S2, tachycardia - GI/Abdominal GI/Abdominal exam: Present: soft, tenderness. Absent: rebound, rigid - Extremities Exam Extremities exam: Absent: calf tenderness, pedal edema, tenderness - Back Exam Back exam: Absent: CVA tenderness (L), CVA tenderness (R) - Psychiatric Psychiatric exam: Present: depressed - Skin Skin exam: Absent: rash Internal Medicine: Result - Labs CBC & Chem 7: 06/19/17 04:07 06/20/17 02:56 Labs: BMP 06/19/17 06/20/17 18:00 02:56 Sodium 137 Potassium 3.0 L 3.1 L Chloride 103 Carbon Dioxide 18 L BUN 21 H D Creatinine 0.72 Glucose 130 H Calcium 7.7 L Cardiac Enzymes 06/19/17 06/19/17 06/20/17 Range/Units 18:00 22:58 02:56 Troponin I 0.15 H* 0.12 H* 0.09 H* (0-0.03) ng/mL - ABG Interpretation ABG results: PT/INR, D-dimer PT 11.3 Seconds (9.4-12.1) 06/16/17 12:11 - Impressions Impressions Chest/Abdomen X-ray 06/20/17 11:28 IMPRESSION: 1. Status post recent right colon surgery. Nonspecific bowel gas pattern, either secondary to a postoperative ileus versus partial obstruction. 2. Suspected small amount of free air in the abdomen, within normal limits for the recent postoperative state. 3. No acute cardiopulmonary disease. D/ / Dimitrios Iraheta MD / Dimitrios Iraheta MD Interpreting Provider: Dimitrios Iraheta MD Echocardiogram 06/20/17 21:51 Impressions: LVEF 65%. Normal LV chamber size, wall thickness and function. Mild left ventricular diastolic dysfunction. Normal right ventricular structure and function. Mild aortic sclerosis suggested by Doppler. Mean gradient 10 mmHg. Mild tricuspid regurgitation. Moderate pulmonary hypertension. Left Ventricular Wall Motion: Rest Echo Findings All wall segments showed normal motion. Findings: Study Quality * Technically adequate exam. ECG Findings * Sinus tachycardia. Left Ventricle * LVEF 65%. * Normal LV chamber size, wall thickness and function. * Mild left ventricular diastolic dysfunction. Right Ventricle * Normal right ventricular structure and function. Left Atrium * Mildly dilated left atrium. Right Atrium * Normal right atrial size. Interatrial Septum * Interatrial septum not well evaluated. Aortic Valve * Aortic valve not well visualized. * Grossly, mildly sclerotic aortic valve leaflets. * Trace aortic regurgitation. * Mild aortic sclerosis suggested by Doppler. Mean gradient 10 mmHg. Mitral Valve * Normal mitral valve structure and function. * No mitral stenosis. * Trace mitral regurgitation. Tricuspid Valve * Normal tricuspid valve structure. * Mild tricuspid regurgitation. * Moderate pulmonary hypertension. Pulmonic Valve * Normal pulmonic valve structure and function. * No pulmonic regurgitation. Aorta * Normally sized aortic root. Pericardium * The pericardium appears normal. IVC * Normal IVC dimensions and inspiratory collapse. Pulmonary Artery * Normal visualized portions of the main pulmonary artery. ADDENDUM: 06/20/17 1120 Impressions: LVEF 65%. Normal LV chamber size, wall thickness and function. Mild left ventricular diastolic dysfunction. Normal right ventricular structure and function. Mild aortic sclerosis suggested by Doppler. Mean gradient 10 mmHg. Mild tricuspid regurgitation. Moderate pulmonary hypertension. Negative agitated saline study for intra-cardiac shunting. Left Ventricular Wall Motion: Rest Echo Findings All wall segments showed normal motion. Findings: Study Quality * Technically adequate exam. ECG Findings * Sinus tachycardia. Left Ventricle * LVEF 65%. * Normal LV chamber size, wall thickness and function. * Mild left ventricular diastolic dysfunction. Right Ventricle * Normal right ventricular structure and function. Left Atrium * Mildly dilated left atrium. Right Atrium * Normal right atrial size. Interatrial Septum * Negative agitated saline study for intra-cardiac shunting. Aortic Valve * Aortic valve not well visualized. * Grossly, mildly sclerotic aortic valve leaflets. * Trace aortic regurgitation. * Mild aortic sclerosis suggested by Doppler. Mean gradient 10 mmHg. Mitral Valve * Normal mitral valve structure and function. * No mitral stenosis. * Trace mitral regurgitation. Tricuspid Valve * Normal tricuspid valve structure. * Mild tricuspid regurgitation. * Moderate pulmonary hypertension. Pulmonic Valve * Normal pulmonic valve structure and function. * No pulmonic regurgitation. Aorta * Normally sized aortic root. Pericardium * The pericardium appears normal. IVC * Normal IVC dimensions and inspiratory collapse. Pulmonary Artery * Normal visualized portions of the main pulmonary artery. - VTE Documentation of Mechanical Device: Intermittent pneumatic compression device Consult Discharge Plan - Plan Referrals: Sara Pfeiffer, LAST PICKER [Primary Care Provider] -
[2017-06-20 17:08] LABS: Eosinophils % 0.2 %; Hematocrit 36.2 % (35.3-44.9); Hemoglobin 11.5 g/dL (11.5-15.4); Immature Granulocytes % 0.2 % (0-4); Lymphocytes # 0.6 K/mcL (0.6-4.6); Lymphocytes % 13.3 %; Mean Corpuscular HGB Conc 31.8 g/dL (31.6-35.5); Mean Corpuscular Volume 88.1 fL (83.0-100.0); Mean Platelet Volume 9.5 fL (9.4-12.4); Monocytes # 0.4 K/mcL (0.0-1.3); Monocytes % 9.4 %; Neutrophils # 3.3 K/mcL (1.6-8.9); Platelet Count 398 K/mcL (140-400); Red Blood Count 4.11 M/mcL (3.82-4.97); Segmented Neutrophils % 76.9 %
[2017-06-20 17:20] LABS: Phosphorous 1.2 mg/dL (2.3-4.7)
[2017-06-20 18:24] LABS: Platelet Estimate Normal (Normal)
[2017-06-20 18:25] LABS: Anisocytosis 2+ (Not Present)
[2017-06-20 19:25] LABS: Basophils % 0.4 %; Hematocrit 32.9 % (35.3-44.9); Hemoglobin 11.2 g/dL (11.5-15.4); Immature Granulocytes % 1.1 % (0-4); Immature Platelets 2.5 % (1.1-6.1); Lymphocytes # 0.4 K/mcL (0.6-4.6); Mean Corpuscular Hemoglobin 28.1 pg (28.0-33.3); Mean Corpuscular Volume 82.7 fL (83.0-100.0); Mean Platelet Volume 9.5 fL (9.4-12.4); Monocytes # 0.1 K/mcL (0.0-1.3); Monocytes % 5.3 %; Neutrophils # 2.1 K/mcL (1.6-8.9); Platelet Count 404 K/mcL (140-400); Red Blood Count 3.98 M/mcL (3.82-4.97); Red Cell Distribution Width 20.1 % (11.5-14.5); Segmented Neutrophils % 78.2 %
[2017-06-20 19:52] LABS: Anisocytosis 2+ (Not Present); Platelet Estimate Normal (Normal)
[2017-06-20] MEDS ORDERED: 0.9 % Sodium Chloride 1,000 ML IVC ONE (21:18)
[2017-06-20] MEDS ORDERED: Acetaminophen IV 500 MG/50 ML INFUS..BTL IVPB ONE (21:21)
--- NOTE | 2017-06-20 21:27 | Event Note ---
Date of Encounter: 06/20/17 Time of Encounter: 21:00 Called by RN to see patient for concerns of sepsis based upon screening measures. I assessed patient and, clinically, she is not septic. However, she has fever, low WBC, and crackles on left base of her lung concerning for pneumonia. I proceeded with sepsis orders per protocol, ordered CXR, and only 1 liter NS bolus. She is tachycardic from her A. Fib, not from sepsis. I advised RN to administer BB as ordered. Again, clinically, I do not believe she is septic. I do believe she has pneumonia based upon clinical exam, however. IV Vancomycin and Levaquin ordered after blood cultures are drawn.
[2017-06-20] MEDS ORDERED: Vancomycin (wt based) 1,000 MG VIAL IVPB SCH (22:00)
[2017-06-20] MEDS ORDERED: Levofloxacin 750 MG/150 ML 750 MG/150 ML BAG IVPB SCH (22:00)
[2017-06-20] MEDS ORDERED: Vancomycin 1,000 MG in D5% in Water 250 ML IVPB SCH (23:00)
[2017-06-21] MEDS: 0.9 % Sodium Chloride w KCl 40 MEQ/1,000 ML MLS IVC SCH (00:24)
[2017-06-21] MEDS: Metoclopramide 10 MG/2 ML VIAL IVP SCH ×3 (00:36→14:08)
[2017-06-21] MEDS: Pantoprazole 40 MG VIAL IVP SCH (05:26)
[2017-06-21] MEDS ORDERED: 0.9 % Sodium Chloride 500 ML IVC ONE ×2 (05:43→14:01)
[2017-06-21] MEDS: *HR* Metoprolol 5 MG/5 ML VIAL IVP PRN (05:48)
[2017-06-21 06:10] LABS: Basophils # 0.1 K/mcL (0.0-0.2); Basophils % 0.7 %; Eosinophils % 0.1 %; Hematocrit 28.7 % (35.3-44.9); Immature Granulocytes % 0.6 % (0-4); Lymphocytes # 0.7 K/mcL (0.6-4.6); Lymphocytes % 6.9 %; Mean Corpuscular HGB Conc 33.8 g/dL (31.6-35.5); Mean Corpuscular Hemoglobin 27.6 pg (28.0-33.3); Mean Platelet Volume 9.7 fL (9.4-12.4); Monocytes # 0.5 K/mcL (0.0-1.3); Monocytes % 4.4 %; Neutrophils # 9.2 K/mcL (1.6-8.9); Platelet Count 318 K/mcL (140-400); Red Blood Count 3.51 M/mcL (3.82-4.97); Red Cell Distribution Width 20.3 % (11.5-14.5); Segmented Neutrophils % 87.3 %
[2017-06-21 06:14] LABS: Hemoglobin 9.7 g/dL (11.5-15.4); Mean Corpuscular Volume 81.8 fL (83.0-100.0)
[2017-06-21 06:15] LABS: Alanine Aminotransferase 14 Units/L (0-55); Albumin 2.2 g/dL (3.5-5.0); Albumin/Globulin Ratio 0.7 (1.1-2.2); Alkaline Phosphatase 58 Units/L (38-126); Aspartate Amino Transferase 15 Units/L (5-34); BUN/Creatinine Ratio 36 (6-26); Bilirubin,Total 0.8 mg/dL (0.2-1.2); Blood Urea Nitrogen 29 mg/dL (7-20); Calcium 7.1 mg/dL (8.6-10.8); Carbon Dioxide 23 mEq/L (19-29); Chloride 102 mEq/L (98-109); Globulin 3.2 g/dL (2.4-3.5); Glucose 131 mg/dL (70-99); Magnesium 2.2 mg/dL (1.6-2.6); Osmolality,Calculated 286 (280-300); Potassium 3.9 mEq/L (3.5-4.5); Sodium 134 mEq/L (136-145); Total Protein 5.4 g/dL (6.0-8.3); eGFR For African Americans > 60 (> 60); eGFR For Non-African Americans > 60 (> 60)
[2017-06-21 06:19] LABS: Phosphorous < 0.7 mg/dL (2.3-4.7)
[2017-06-21] MEDS ORDERED: Potassium Phosphate 44 MEQ in 0.9 % Sodium Chloride 250 ML IVPB ONE (06:23)
[2017-06-21 06:53] LABS: Anisocytosis 2+ (Not Present); Burr Cells 2+ (Not Present); Platelet Estimate Normal (Normal); Poikilocytosis 2+ (Not Present)
[2017-06-21] MEDS ORDERED: Aminoglycoside Consult 1 EACH MC ONE (07:22)
--- NOTE | 2017-06-21 07:39 | Electrocardiograph Report ---
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
--- NOTE | 2017-06-21 07:39 | Electrocardiograph Report ---
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
[2017-06-21] MEDS ORDERED: Lidocaine -MPF 1% 5 ML AMPUL INFILT ONE (09:39)
--- NOTE | 2017-06-21 09:55 | General Surgery Progress Note ---
Date of Encounter: 06/21/17 Time of Encounter: 09:30 - Assessment and Plan (1) Colonic mass Current Visit: Yes Status: Acute POD #5 ascending colon resection with Dr. Germain Pathology pending CEA 3.1 Bowel rest- ice chips only NG tube to LIWS (inserted 06/20/17) IV fluids- 75ml/hour PICC and TPN today (total fluid rate will be goal TPN rate) Architectural Sales Consultant consult for management of TPN Reglan for post-operative ileus- every 6 hours [facility] Supportive care and pain control- Scheduled ibuprofen and tylenol, prn dilaudid IS every 1 hour while awake Ambulate hallways TID with assistance (2) GERD (gastroesophageal reflux disease) Current Visit: Yes Status: Chronic PPI therapy daily Qualifiers: Esophagitis presence: esophagitis presence not specified Qualified Code(s) : K21.9 - Gastro-esophageal reflux disease without esophagitis (3) New onset a-fib Current Visit: Yes Status: Acute Rate continues to be consistently above 100 Hospitalist following and has consulted cardiology for evaluation and treatment Okay for anticoagulation from a surgical standpoint (4) Electrolyte imbalance Current Visit: Yes Status: Acute Replace phosphorus Repeat am labs (5) Postoperative ileus Current Visit: Yes Status: Acute Bowel rest except ice chips only NG tube to LIWS Await return of bowel function PICC and TPN today Reglan every 6 hours [facility] (6) Moderate protein-calorie malnutrition Current Visit: Yes Status: Acute PICC insertion today Start TPN- total fluid rate will be TPN goal Architectural Sales Consultant consult for start and management of TPN (7) DVT prophylaxis Current Visit: No Status: Acute EPCDs to bilateral lower extremities for DVT prophylaxis Ambulate hallways TID with assistance Heparin 5,000 units SQ twice daily for DVT prophylaxis Subjective Patient reports: no new complaints, feels better, voiding w/o difficulty, no flatus, bowel movement (small amount of liquid stool this morning), afebrile Objective Vital Signs - Last 8 Hours Temp Pulse Resp BP Pulse Ox 06/21/17 09:28 99.5 F 114 16 126/77 97 06/21/17 08:36 99.1 F 112 15 119/72 92 06/21/17 07:30 97.7 F 109 16 110/66 98 06/21/17 06:39 98.2 F 109 16 108/69 94 06/21/17 05:18 97.9 F 105 24 101/54 98 06/21/17 03:56 97.7 F 98 14 99/59 97 06/21/17 02:45 97.9 F 105 15 122/76 93 Intake and Output 06/20/17 06/21/17 06/21/17 23:59 07:59 15:59 Intake Total 1050 / 1050 1000 / 1000 Output Total 2450 / 2450 1450 / 1450 Balance -1400 / -1400 -450 / -450 Intake: IV Fluids 1050 / 1050 1000 / 1000 0.9 % Sodium Chloride 1,000 ML 1000 / 1000 @ 3750 mls/hr IVC .Q16M ONE Rx# :[id number] KCl 40mEq in 0.9% Sodium 1000 / 1000 Chloride 40 meq In 1,000 ml @ 75 mls/hr IVC .[id number] NUSRAT Rx#: [id number] Ofirmev 1,000 mg/100 ml 500 mg 50 / 50 In 50 ml @ 200 mls/hr IVPB ONCE ONE Rx#:[id number] Oral 0 / 0 0 / 0 Output: Urine 0 / 0 0 / 0 Gastric Drainage 2450 / 2450 1450 / 1450 Other: Meal NPO NPO Percent of Meal Consumed 0% # Voids 0 Weight 66.723 kg Blood Glucose* 175 119 Patient Weight 06/21/17 23:59 Weight 66.723 kg - General physical appearance well developed, no distress - Eyes normal ocular movement - ENT dry mucosa, atraumatic, normocephalic - Neck Neck exam: trachea midline - Respiratory normal respiratory effort, clear to auscultation, other (diminished bibasilar bases) - Cardiovascular Cardiovascular exam: Present: tachycardia, irregular rhythm - Abdomen Abdomen: Present: soft, tender (minimal, expected post-operative tenderness) - Incision Incision: Present: clean and dry, intact - Neurologic CN 2-12 grossly intact - Psychiatric oriented to time, oriented to person, oriented to place, speech is normal, memory intact - Labs 06/21/17 05:30 06/21/17 05:30 Diabetes panel 06/21/17 Range/Units 05:30 Sodium 134 L (136-145) mEq/L Potassium 3.9 (3.5-4.5) mEq/L Chloride 102 (98-109) mEq/L Carbon Dioxide 23 (19-29) mEq/L BUN 29 H (7-20) mg/dL Creatinine 0.80 (0.57-1.11) mg/dL Glucose 131 H (70-99) mg/dL Calcium 7.1 L (8.6-10.8) mg/dL AST 15 (5-34) Units/L ALT 14 (0-55) Units/L Alkaline Phosphatase 58 (38-126) Units/L Albumin 2.2 L (3.5-5.0) g/dL Calcium panel 06/20/17 06/21/17 Range/Units 02:56 05:30 Calcium 7.1 L (8.6-10.8) mg/dL Phosphorus 1.2 L < 0.7 L* (2.3-4.7) mg/dL Albumin 2.2 L (3.5-5.0) g/dL Pituitary panel 06/21/17 Range/Units 05:30 Sodium 134 L (136-145) mEq/L Potassium 3.9 (3.5-4.5) mEq/L Chloride 102 (98-109) mEq/L Carbon Dioxide 23 (19-29) mEq/L BUN 29 H (7-20) mg/dL Creatinine 0.80 (0.57-1.11) mg/dL Glucose 131 H (70-99) mg/dL Calcium 7.1 L (8.6-10.8) mg/dL Adrenal panel 06/21/17 Range/Units 05:30 Sodium 134 L (136-145) mEq/L Potassium 3.9 (3.5-4.5) mEq/L Chloride 102 (98-109) mEq/L Carbon Dioxide 23 (19-29) mEq/L BUN 29 H (7-20) mg/dL Creatinine 0.80 (0.57-1.11) mg/dL Glucose 131 H (70-99) mg/dL Calcium 7.1 L (8.6-10.8) mg/dL Total Bilirubin 0.8 (0.2-1.2) mg/dL AST 15 (5-34) Units/L ALT 14 (0-55) Units/L Alkaline Phosphatase 58 (38-126) Units/L Albumin 2.2 L (3.5-5.0) g/dL - VTE Documentation of Mechanical Device: Intermittent pneumatic compression device Consult Discharge Plan - Plan Referrals: Sara Pfeiffer, WELDING PROCESS SPECIALIST [Primary Care Provider] - - Attending Attestation For this encounter, I have reviewed the [employer] or PA documentation, treatment plan, and medical decision making; and I have had face to face time with this patient.
--- NOTE | 2017-06-21 10:54 | Cardiology Consult Note ---
Date of Encounter: 06/21/17 Time of Encounter: 10:51 Assessment and Plan (1) New onset a-fib Current Visit: Yes Status: Acute ChadsVasc 4 will likely benefit from AC for stroke risk reduction with IV heparin if okay with surgery, May also f/u with EP for new onset afib as an outpatient (2) NSTEMI (non-ST elevated myocardial infarction) Current Visit: Yes Status: Acute Likely demand ischemia but would recommend a chemical stress test as an OP with her PCP for both elevated troponins and new onset afib Discussion w patient/family: The assessment and plan as outlined above was discussed with the patient and/or family members who expressed understanding and agreement. All questions were answered. Thank you for involving us in the care of your patient. Please call with any questions. History of Present Illness Consult date: 06/21/17 Requesting physician: Marli House Consult reason: abnormal EKG Chief complaint: Atrial Fibrillation History of present illness: Ms. Romeo is a 77 year old female with no significant cardiac history s/p colon mass resection found to have atrial fibrillation post op. ChadsVasc score of 4 likely benefit from AC, discussed r/b/a with the pt and she agrees to start an AC for stroke risk reduction if okay with surgery. According to latest PN surgery is okay with AC post op now. Patient also had mild elevation in troponins likely demand ischemia. Patient is asymptomatic and has denied and chest pain or EDUARDO pre operatively. Likely she will need an OP chemical stress test to rule out any underlying CAD. Past Med Surg Social Fam HX - Past Medical History Medical history: arthritis, GERD, hyperlipidemia, hypertension, malignancy, osteoporosis, other Psychiatric history: no psych history - Past Surgical History Surgical History: breast surgery, cancer surgery, cataract, cholecystectomy, hysterectomy, sinus surgery, NOA/BSO, other - Social History Smoking Status: Former smoker Smokeless Tobacco Status: No Alcohol use: none Drug use: none - Family History Father Hx Family Cardiac Disorders: Yes Hx Family Cancer: Yes Medications and Allergies Lansoprazole [Prevacid] 30 mg PO DAILY 12/02/15 [History] Multivitamin [Multivitamins] 1 cap PO DAILY 12/02/15 [History] Aspirin [Lo-Dose Aspirin EC] 81 mg PO DAILY 04/02/16 [History] Cholecalciferol (D-3) [Vitamin D] 5,000 unit PO DAILY 04/02/16 [History] Calcium Carb/Vitamin D3/Vit K1 [Calcium + D Soft Chewable Tab] 2 each PO DAILY 11/09/16 [History] 3 Allergy/AdvReac Type Severity Reaction Status Date / Time "pain medications" AdvReac See Uncoded 06/16/17 08:04 Comments/ VOMITING All Systems Review: A 10-system review of systems was performed and is negative for pertinent findings except as documented above in the HPI. Physical Examination Vital Signs, Last 4 Hours Temp Pulse Resp BP Pulse Ox 06/21/17 10:25 99.1 F 99 16 111/72 95 06/21/17 09:28 99.5 F 114 16 126/77 97 06/21/17 08:36 99.1 F 112 15 119/72 92 06/21/17 07:30 97.7 F 109 16 110/66 98 General: Conversant, No Apparent Distress HEENT: Atraumatic, Normocephaly, Mucus Membranes Moist Neck: No JVD, Normal carotid pulses Cardiac: Reg Rate and Rhythm, Normal S1 and S2, No Murmur Lungs: Normal Breath Sounds, No Wheeze, Rales, Rhonchi Neuro: Alert and responsive, No focal deficits noted Abdomen: Soft, Non-Tender Skin: No rashes noted on visualized skin Musculoskeletal: No Chest Wall Tenderness Extremities: No Clubbing, No Cyanosis, No Edema, Normal Pulses Results 06/21/17 05:30 06/21/17 05:30 Lab Results 06/20/17 06/20/17 06/20/17 02:54 02:56 19:10 WBC 4.3 D 2.7 L Hgb 11.5 11.2 L Hct 36.2 32.9 L Plt Count 398 404 H Sodium Potassium Chloride Carbon Dioxide BUN Creatinine Glucose Calcium Magnesium 3.1 H Total Bilirubin AST ALT Alkaline Phosphatase 06/21/17 06/21/17 05:30 05:30 WBC 10.5 D Hgb 9.7 L D Hct 28.7 L Plt Count 318 Sodium 134 L Potassium 3.9 Chloride 102 Carbon Dioxide 23 BUN 29 H Creatinine 0.80 Glucose 131 H Calcium 7.1 L Magnesium 2.2 Total Bilirubin 0.8 AST 15 ALT 14 Alkaline Phosphatase 58 Consult Discharge Plan - Plan Referrals: Sara Pfeiffer, PUBLIC INFORMATION OFFICER [Primary Care Provider] -
[2017-06-21] MEDS ORDERED: D10% in Water 500 ML IVC PRN (10:56)
[2017-06-21] MEDS ORDERED: *HR* Heparin 5,000 UNIT/ML VIAL IVP ONE (11:39)
[2017-06-21] MEDS ORDERED: Artificial Tears SOLN 15 ML BOTTLE BOTH EYES PRN (11:40)
[2017-06-21] MEDS ORDERED: Chloraseptic Spray 177 ML BOTTLE MM PRN (14:26)
[2017-06-21 14:33] LABS: INR 1.3; Prothrombin Time 14.4 Seconds (9.4-12.1)
[2017-06-21 14:35] LABS: Activated Partial Thrombo Time 23.1 Seconds (26.0-36.0)
[2017-06-21 14:37] LABS: Hematocrit 28.4 % (35.3-44.9); Hemoglobin 9.4 g/dL (11.5-15.4); Immature Platelets 3.4 % (1.1-6.1); Mean Corpuscular HGB Conc 33.1 g/dL (31.6-35.5); Mean Corpuscular Hemoglobin 27.5 pg (28.0-33.3); Mean Platelet Volume 9.8 fL (9.4-12.4); Red Blood Count 3.42 M/mcL (3.82-4.97); Red Cell Distribution Width 20.5 % (11.5-14.5)
[2017-06-21 14:41] LABS: Phosphorous 1.1 mg/dL (2.3-4.7); Potassium 3.7 mEq/L (3.5-4.5)
[2017-06-21] MEDS: Heparin 25,000 UNIT/500 ML D5W 25,000 UNIT/500 ML BAG IVC SCH (15:23)
--- NOTE | 2017-06-21 15:37 | Internal Med Progress Note ---
Date of Encounter: 06/21/17 Time of Encounter: 09:00 - Assessment and plan (1) Elevated troponin Current Visit: Yes Status: Acute Assessment and plan: Cardiology saw patient. Patient denies chest pain. Consider demand ischemia. However, cardiology recommended stress test as outpatient. (2) Colonic mass Current Visit: Yes Status: Acute Assessment and plan: s/p makayla colectomy cont post op care as per surgery since she still has nausea / vomiting - will keep her NPO TPN started today (3) New onset a-fib Current Visit: Yes Status: Acute Assessment and plan: Converted and keep at NSR Cardiology consult appreciated. Heparin drip started per cardiology. May start by mouth anticoagulation after patient resume diet. Patient is at high risk because she is on heparin drip, need close monitoring (4) DVT prophylaxis Current Visit: No Status: Acute Assessment and plan: Patient is on heparin drip - Time Spent With Patient Greater than 35 minutes - Subjective Interval history: Patient was seen and examined. Complain incision site pain. Denies chest pain or shortness of breath. Vital signs stable except a mild tachycardia. Cardiology consult appreciated, recommend heparin drip for paroxysmal A. fib. Surgical is on case and started TPN today. - Constitutional Vitals: Temp Pulse Resp BP Pulse Ox 99.4 F 107 14 116/73 95 06/21/17 14:37 06/21/17 14:37 06/21/17 14:37 06/21/17 14:37 06/21/17 14:37 General appearance: Present: A&O X 3, no acute distress, answers questions appropriately - Head Head exam: Present: atraumatic, normocephalic - Eye Eye exam: Present: PERRL, conjuntiva pink, sclera anicteric Pupils: Present: PERRL - Neck Neck exam general surgery: Present: supple, trachea midline. Absent: lymphadenopathy - Respiratory Respiratory exam: Present: CTAB. Absent: accessory muscle use, rales, rhonchi, wheezes - Cardiovascular Cardiovascular exam: Present: RRR, +S1, +S2. Absent: diastolic murmur, gallop, rubs, systolic murmur - GI/Abdominal GI/Abdominal exam: Present: normal bowel sounds, soft, tenderness (Mild tenderness without guarding or rebound), no peritoneal signs. Absent: distended - Extremities Exam Extremities exam: Present: warm, radial pulses palpable and symmetrical. Absent : calf tenderness, cyanotic, pedal edema - Neurological Exam Neurological exam: Present: CN II-XII intact, oriented X3, no focal deficits. Absent: pronater drift, facial droop, speech deficit - Skin Skin exam: Present: dry, intact Internal Medicine: Result - Labs CBC & Chem 7: 06/21/17 14:21 06/21/17 14:21 Labs: Short CBC 06/20/17 06/20/17 06/21/17 Range/Units 02:54 19:10 05:30 WBC 4.3 D 2.7 L 10.5 D (4.3-11.1) K/mcL Hgb 11.5 11.2 L 9.7 L D (11.5-15.4) g/dL Hct 36.2 32.9 L 28.7 L (35.3-44.9) % Plt Count 398 404 H 318 (140-400) K/mcL Neutrophils # 3.3 2.1 9.2 H (1.6-8.9) K/mcL 06/21/17 Range/Units 14:21 WBC 11.5 H (4.3-11.1) K/mcL Hgb 9.4 L (11.5-15.4) g/dL Hct 28.4 L (35.3-44.9) % Plt Count 336 (140-400) K/mcL Neutrophils # (1.6-8.9) K/mcL BMP 06/21/17 06/21/17 05:30 14:21 Sodium 134 L Potassium 3.9 3.7 Chloride 102 Carbon Dioxide 23 BUN 29 H Creatinine 0.80 Glucose 131 H Calcium 7.1 L Liver Function 06/21/17 Range/Units 05:30 Total Bilirubin 0.8 (0.2-1.2) mg/dL AST 15 (5-34) Units/L ALT 14 (0-55) Units/L Alkaline Phosphatase 58 (38-126) Units/L Albumin 2.2 L (3.5-5.0) g/dL - ABG Interpretation ABG results: PT/INR, D-dimer PT 14.4 Seconds (9.4-12.1) H 06/21/17 14:21 - Impressions Impressions Chest X-Ray 06/20/17 21:21 IMPRESSION: New right basilar infiltrate with possible effusion concerning for pneumonia. D/ / Petr Gamboa MD / Petr Gamboa MD Interpreting Provider: Petr Gamboa MD Chest/Abdomen X-ray 06/21/17 11:31 IMPRESSION: 1. No gaseous distended or air-fluid levels in the small bowel. 2. Mild gaseous distention of the ascending and transverse colon. Findings are similar to the prior study. 3. Small amount of oral contrast is identified in the descending colon through rectum. 4. No acute cardiopulmonary disease. D/ / 06/21/2017 12:24:47 Praveena Hogue MD / [facility] Interpreting Provider: Praveena Hogue MD - VTE Documentation of Mechanical Device: Intermittent pneumatic compression device Consult Discharge Plan - Plan Referrals: Sara Pfeiffer, L[employer] AND [employer] REPAIRER [Primary Care Provider] -
[2017-06-21] MEDS: dilTIAZem HCl 100 MG in D5% in Water 50 ML IVC SCH (16:34)
[2017-06-21] MEDS ORDERED: AMINO ACIDS 5 %/DEXTROSE 15 % 2,000 ML with MVI, adult with vitamin K 10 ML, Sodium A... IVC SCH (17:00)
[2017-06-21 17:13] LABS: Acinetobacter baumannii by PCR Not Detected (Not Detect); Enterococcus by PCR Not Detected (Not Detect); Escherichia coli by PCR Not Detected (Not Detect); Klebsiella oxytoca by PCR Not Detected (Not Detect); Klebsiella pneumoniae by PCR Not Detected (Not Detect); Pseudomonas aeruginosa by PCR ***DETECTED*** (Not Detect); Serratia marcescens by PCR Not Detected (Not Detect); Staphylococcus aureus by PCR Not Detected (Not Detect); Streptococcus agalactiae(B)PCR Not Detected (Not Detect); Streptococcus by PCR Not Detected (Not Detect); Streptococcus pneumoniae PCR Not Detected (Not Detect); Streptococcus pyogenes (A) PCR Not Detected (Not Detect); blaKPC Carbapenem-Resist Gene Not Detected (Not Detect); mecA Methicillin-Resist Gene Not Detected (Not Detect); vanA/B Vancomycin-Resist Genes Not Detected (Not Detect)
[2017-06-21 17:14] LABS: Candida albicans by PCR Not Detected (Not Detect); Candida glabrata by PCR Not Detected (Not Detect); Candida krusei by PCR Not Detected (Not Detect); Candida parapsilosis by PCR Not Detected (Not Detect); Candida tropicalis by PCR Not Detected (Not Detect)
[2017-06-21] MEDS ORDERED: *HR* Metoprolol 5 MG/5 ML VIAL IVP SCH (18:00)
[2017-06-21] MEDS ORDERED: *HR* Heparin 5,000 UNIT/ML VIAL SQ SCH (18:00)
[2017-06-21 20:11] LABS: CK-MB (CK isoenzymes) 0 % (0-4); CK-MM (CK-isoenzymes) 100 % (96-100)
[2017-06-21 20:11] LABS: CK-BB (CK isoenzymes) 2 % (0-0); CK-MB (CK isoenzymes) 0 % (0-4); CK-MM (CK-isoenzymes) 98 % (96-100)
--- NOTE | 2017-06-21 22:21 | Electrocardiograph Report ---
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
[2017-06-21] MEDS: *HR* Heparin 5,000 UNIT/ML VIAL IVP PRN (22:48)
[2017-06-22] MEDS: dilTIAZem HCl 100 MG in D5% in Water 50 ML IVC SCH ×2 (01:18→23:06)
[2017-06-22 05:10] LABS: Basophils % 0.2 %; Eosinophils # 0.1 K/mcL (0.0-0.6); Eosinophils % 1.2 %; Hematocrit 26.8 % (35.3-44.9); Hemoglobin 8.8 g/dL (11.5-15.4); Immature Granulocytes % 1.1 % (0-4); Lymphocytes # 0.8 K/mcL (0.6-4.6); Lymphocytes % 7.9 %; Mean Corpuscular HGB Conc 32.8 g/dL (31.6-35.5); Mean Corpuscular Hemoglobin 27.3 pg (28.0-33.3); Mean Corpuscular Volume 83.2 fL (83.0-100.0); Mean Platelet Volume 9.8 fL (9.4-12.4); Monocytes # 0.5 K/mcL (0.0-1.3); Monocytes % 5.3 %; Neutrophils # 8.4 K/mcL (1.6-8.9); Platelet Count 317 K/mcL (140-400); Red Blood Count 3.22 M/mcL (3.82-4.97); Red Cell Distribution Width 20.7 % (11.5-14.5); Segmented Neutrophils % 84.3 %
[2017-06-22 05:17] LABS: BUN/Creatinine Ratio 36 (6-26); Blood Urea Nitrogen 21 mg/dL (7-20); Carbon Dioxide 23 mEq/L (19-29); Chloride 104 mEq/L (98-109); Glucose 162 mg/dL (70-99); Osmolality,Calculated 289 (280-300); Potassium 3.1 mEq/L (3.5-4.5); Sodium 136 mEq/L (136-145); eGFR For African Americans > 60 (> 60); eGFR For Non-African Americans > 60 (> 60)
[2017-06-22] MEDS: *HR* Heparin 5,000 UNIT/ML VIAL IVP PRN ×2 (05:51→13:53)
[2017-06-22] MEDS: Cefepime HCl 2,000 MG in Water for inj. (sterile) 20 ML IVP SCH ×2 (05:54→18:00)
[2017-06-22] MEDS: Pantoprazole 40 MG VIAL IVP SCH (05:54)
[2017-06-22 06:06] LABS: Platelet Estimate Normal (Normal)
[2017-06-22] MEDS: 0.9 % Sodium Chloride w KCl 40 MEQ/1,000 ML MLS IVC SCH ×2 (07:25→07:26)
[2017-06-22] MEDS ORDERED: Potassium Phosphate 44 MEQ in 0.9 % Sodium Chloride 250 ML IVPB ONE ×2 (07:32→12:00)
[2017-06-22 08:36] LABS: CK Total (Ck Isoenzymes) 73 U/L (20-180)
[2017-06-22 08:36] LABS: CK Total (Ck Isoenzymes) 65 U/L (20-180); CK-BB (CK isoenzymes) 0 % (0-0)
--- NOTE | 2017-06-22 12:40 | Operative Note ---
Date of procedure: 06/16/17 Pre-op diagnosis: Right colon cancer Post-op diagnosis: same Procedure: Robotic ascending colectomy Anesthesia: DEONNA Surgeon: Loi Germain Estimated blood loss (cc): 5 Specimen: GB Condition: stable Disposition: same day Procedure in Detail: After informed consent, the patient was taken to the operating room. The after adequate anesthesia the abdomen was prepped and draped. The patient was then placed in a slight head upposition and the robot was brought over the patient and the arms wereconnected. Once in place, I sat at the console and performed a dissection of the cecum and appendix, as well as the terminal ileum due to scarring retarded our excursion. Once this was freed, I then grasped the cecum with a clamp utilizing robotic arm number one and with the vessel sealer and another hand began to take down the peritoneal attachment around the ileocolic vessel. Once we were able to gain access into the retroperitoneum, the duodenum was identified and kept out of harm's way. The ileocolic vessel was taken with the vessel sealer. Once this was completed, then the remainder of the mesentery was divided using the vessel sealer towards the transverse colon. The transverse colon was then skeletonized and robotic 45mm stapler was used to transect the transverse colon. Once that was completed, then the attachments were taken down off of the hepatic flexure and the white line of [place] was taken down on the right colic gutter as well. The terminal ileum was then divided after approximately 12 inches had been skeletonized. It too was taken with the robotic 45mm stapler. Once this was completed, then the transverse colon and the terminal ileum were opened with scissors. A common rant was opened in the colon and the terminal ileum, and then a robotic 45mm stapler was used to anastomose the bowel. Individual 3-0 silk sutures were then used to close the common enterotomy. Once this was completed, a small counter incision was made at one of the port sites and a 15 mm cannula site was placed as well as an endobag. The specimen was placed in the endobag and brought out through the left lower quadrant. The bowel was removed and placed on the back table. The fascia of the left lower quadrant incision was closed with an 0 Vicryl suture x3. The skin was closed with 4-0 Vicryl suture in inverted interrupted fashion. Dermabond was placed on the skin incisions. All the CO2 had been deflated from the abdomen prior to leaving the abdominal cavity. He tolerated the procedure well. All instrument counts and needle counts were correct at the end of the case. He was extubated in the operating room, taken to recovery in stable condition.
--- NOTE | 2017-06-22 12:49 | General Surgery Progress Note ---
Date of Encounter: 06/22/17 Time of Encounter: 12:30 - Assessment and Plan (1) Colonic mass Current Visit: Yes Status: Acute POD #7 ascending colon resection with Dr. Germain Pathology pending CEA 3.1 Bowel rest- ice chips only (1 cup every 8 hours) NG tube to LIWS (inserted 06/20/17) PICC and TPN- total fluid rate 60ml/hour [employer] consult for management of TPN Supportive care and pain control IS every 1 hour while awake Ambulate hallways TID with assistance PT/OT daily for mobilization Repeat am labs (2) GERD (gastroesophageal reflux disease) Current Visit: Yes Status: Chronic PPI therapy daily Qualifiers: Esophagitis presence: esophagitis presence not specified Qualified Code(s) : K21.9 - Gastro-esophageal reflux disease without esophagitis (3) New onset a-fib Current Visit: Yes Status: Acute Cardizem gtt 5mg/hour Currently in R Hospitalist following and has consulted cardiology for evaluation and treatment Okay for anticoagulation from a surgical standpoint (4) Electrolyte imbalance Current Visit: Yes Status: Acute Replace phosphorus and potassium per hospitalist Repeat am labs (5) Postoperative ileus Current Visit: Yes Status: Acute Bowel rest except ice chips only NG tube to LIWS Await return of bowel function PICC and TPN (6) Moderate protein-calorie malnutrition Current Visit: Yes Status: Acute Continue TPN- total fluid rate 60ml/hour [employer] consult for start and management of TPN (7) DVT prophylaxis Current Visit: No Status: Acute EPCDs to bilateral lower extremities for DVT prophylaxis Ambulate hallways TID with assistance Heparin gtt (therapeutic) for atrial fibrillation Subjective Patient reports: no new complaints, feels better, still having pain, pain is less, voiding w/o difficulty, no flatus, no bowel movement, afebrile, other (HR more controlled on cardizem gtt- 5mg/hour) Objective Vital Signs - Last 8 Hours Temp Pulse Resp BP Pulse Ox 06/22/17 10:22 98.9 F 89 16 127/65 98 06/22/17 08:11 97.4 F L 93 18 130/74 97 Intake and Output 06/21/17 06/22/17 06/22/17 23:59 07:59 15:59 Intake Total 132 / 132 501 / 501 35.8 / 35.8 Output Total 750 / 750 1050 / 1050 600 / 600 Balance -618 / -618 -549 / -549 -564.2 / -564.2 Intake: IV Fluids 132 / 132 501 / 501 15.8 / 15.8 Heparin 25,000 UNIT/500 ML D5W 132 / 132 165 / 165 25,000 unit In 500 ml @ 14 UNIT /KG/HR 18.682 mls/hr IVC .Q24H [facility] Rx#:[id number] Cardizem 100 MG In Dextrose 5% 0 / 0 66 / 66 15.8 / 15.8 (ADD-P[place]) 50 ML @ 5 MG/HR 2 .5 mls/hr IVC .Q20H [facility] Rx#: [id number] Maxipime 2,000 MG In Water for 20 / 20 inj. (sterile) 20 ML @ 300 mls/ hr IVP Q12HR [facility] Rx#:[id number] Intralipid 20% 250 ML @ 21 mls/ 250 / 250 hr IVPB DAILY@1700 [facility] Rx#: [id number] Oral 0 / 0 20 / 20 Output: Urine 0 / 0 0 / 0 Gastric Tube Lavage Amount 50 / 50 Left Nare 50 / 50 Gastric Drainage 750 / 750 1050 / 1050 550 / 550 Other: Meal NPO NPO Weight 73.981 kg Blood Glucose* 106 174 148 Patient Weight 06/22/17 23:59 Weight 73.981 kg - General physical appearance well developed, no distress - Eyes normal ocular movement - ENT dry mucosa, atraumatic, normocephalic - Neck Neck exam: trachea midline - Respiratory normal respiratory effort, clear to auscultation - Cardiovascular Cardiovascular exam: Present: RRR, NR - Abdomen Abdomen: Present: bowel sounds present (minimal, hypoactive), soft, tender ( Minimal, expected postoperative tenderness), wound (NG tube to low intermittent wall suction with bilious drainage noted (1600ml noted since midnight)) - Incision Incision: Present: clean and dry, intact - Neurologic CN 2-12 grossly intact - Psychiatric oriented to time, oriented to person, oriented to place, speech is normal, memory intact - Labs 06/22/17 04:50 06/22/17 04:50 Diabetes panel 06/21/17 06/22/17 06/22/17 Range/Units 14:21 04:50 04:50 Sodium 136 (136-145) mEq/L Potassium 3.7 3.1 L (3.5-4.5) mEq/L Chloride 104 (98-109) mEq/L Carbon Dioxide 23 (19-29) mEq/L BUN 21 H (7-20) mg/dL Creatinine 0.59 (0.57-1.11) mg/dL Glucose 162 H (70-99) mg/dL Calcium 7.0 L (8.6-10.8) mg/dL Triglycerides 122 (< 150) mg/dL Calcium panel 06/21/17 06/22/17 06/22/17 Range/Units 14:21 04:50 04:50 Calcium 7.0 L (8.6-10.8) mg/dL Phosphorus 1.1 L D 1.0 L* (2.3-4.7) mg/dL Pituitary panel 06/21/17 06/22/17 Range/Units 14:21 04:50 Sodium 136 (136-145) mEq/L Potassium 3.7 3.1 L (3.5-4.5) mEq/L Chloride 104 (98-109) mEq/L Carbon Dioxide 23 (19-29) mEq/L BUN 21 H (7-20) mg/dL Creatinine 0.59 (0.57-1.11) mg/dL Glucose 162 H (70-99) mg/dL Calcium 7.0 L (8.6-10.8) mg/dL Adrenal panel 06/21/17 06/22/17 Range/Units 14:21 04:50 Sodium 136 (136-145) mEq/L Potassium 3.7 3.1 L (3.5-4.5) mEq/L Chloride 104 (98-109) mEq/L Carbon Dioxide 23 (19-29) mEq/L BUN 21 H (7-20) mg/dL Creatinine 0.59 (0.57-1.11) mg/dL Glucose 162 H (70-99) mg/dL Calcium 7.0 L (8.6-10.8) mg/dL - VTE Documentation of Mechanical Device: Intermittent pneumatic compression device Consult Discharge Plan - Plan Referrals: Sara Pfeiffer, ENGINEERING SCIENTIST [Primary Care Provider] - - Attending Attestation For this encounter, I have reviewed the PROCUREMENT OFFICER or PA documentation, treatment plan, and medical decision making; and I have had face to face time with this patient.
[2017-06-22] MEDS: 0.9 % Sodium Chloride 1,000 ML IVC SCH (13:00)
--- NOTE | 2017-06-22 14:29 | Cardiology Progress Note ---
Date of Encounter: 06/22/17 Time of Encounter: 13:30 Assessment and Plan (1) Colonic mass Current Visit: Yes Status: Acute Per cardiology: -S/p surgery. -Management per primary and surgical services. (2) New onset a-fib Current Visit: Yes Status: Acute Per cardiology: -New onset atrial fibrillaton post op. -ChadsVasc 4. On heparin drip. -Currently on cardizem drip at 2.5mg/hour. -Patient is currently NPO with NG tube to suction. -Current SR with short episodes of PAF. -TTE with LVEF 65%, no wall motion abnormalities. -Recommend starting oral anticoagulation once ok with surgery services. -Recommned starting cardizem CD 120mg daily, once ok with surgery services. -Cardiology will sign off and will follow in outpatient setting. Follow up set. (3) Elevated troponin Current Visit: Yes Status: Acute Per cardiology: -Troponins 0.15, 0.12, 0.09 in the setting of atrial fibrillation, post op. -Denies chest pain. -TTE with LVEF 65%, no wall motion abnormalities. -Not on asa, statin, or beta kwesi due to NPO status with NG to suction. -DO not suspect NSTEMI, suspect demand ischemia related to above. NO cardiac rehab warranted. Discussion w patient/family: The assessment and plan as outlined above was discussed with the patient and/or family members who expressed understanding and agreement. All questions were answered. Thank you for involving us in the care of your patient. Please call with any questions. Discussed and reviewed with . Subjective Principal diagnosis: s/p hemicolectomy, colon mass Interval history: Patient states is feeling better today. Denies chest pain, palpitations, or fluttering. Objective Vital Signs Temperature 98.4 F 06/16/17 07:46 Pulse Rate 92 06/16/17 07:46 Respiratory Rate 16 06/16/17 07:46 Blood Pressure 147/87 06/16/17 07:46 O2 Sat by Pulse Oximetry 99 06/16/17 07:46 Temperature 98.9 F 06/22/17 10:22 Pulse Rate 89 06/22/17 10:22 Respiratory Rate 16 06/22/17 10:22 Blood Pressure 127/65 06/22/17 10:22 O2 Sat by Pulse Oximetry 98 06/22/17 10:22 General: Conversant, No Apparent Distress HEENT: Atraumatic, Normocephaly, Mucus Membranes Moist Neck: No JVD, Normal carotid pulses Cardiac: Reg Rate and Rhythm, Normal S1 and S2, No Murmur Lungs: Normal Breath Sounds, No Wheeze, Rales, Rhonchi Neuro: Alert and responsive, No focal deficits noted Abdomen: Soft, Other (Tender to palpation. NG noted to suction. ) Skin: No rashes noted on visualized skin Musculoskeletal: No Chest Wall Tenderness Extremities: No Clubbing, No Cyanosis, No Edema, Normal Pulses Results 06/22/17 04:50 06/22/17 04:50 Lab Results Impressions Chest/Abdomen X-ray 06/21/17 11:31 IMPRESSION: 1. No gaseous distended or air-fluid levels in the small bowel. 2. Mild gaseous distention of the ascending and transverse colon. Findings are similar to the prior study. 3. Small amount of oral contrast is identified in the descending colon through rectum. 4. No acute cardiopulmonary disease. D/ / 06/21/2017 12:24:47 Praveena Hogue MD / [facility] Interpreting Provider: Praveena Hogue MD Active Medications Acetaminophen (Tylenol Susp) 500 mg PO Q6HR PRN PRN Reason: Pain Stop: 12/19/17 15:51 Artificial Tears (Akwa Tears) 1 drop BOTH EYES QID PRN; Protocol PRN Reason: Dry Eyes Stop: 12/21/17 13:01 Last Admin: 06/22/17 13:59 Dose: 1 drop Heparin Sodium (Porcine) (Heparin) 4,700 unit 70 unit/kg (4700 unit) IVP Q6HR PRN PRN Reason: SEE COMMENTS Stop: 12/21/17 11:40 Last Admin: 06/22/17 13:53 Dose: 4,700 unit Heparin Sodium (Porcine) (Heparin) 2,300 unit 35 unit/kg (2300 unit) IVP Q6H PRN PRN Reason: SEE COMMENTS Stop: 12/21/17 11:40 Last Admin: 06/22/17 05:51 Dose: 2,300 unit Hydromorphone HCl (Dilaudid) 0.5 mg IVP Q4HR PRN PRN Reason: Severe Pain Stop: 12/17/17 10:13 Levofloxacin/Dextrose (Levaquin Premix 750mg/150 Ml) 750 mg in 150 mls @ 100 mls/hr IVPB Q48H [facility] PRN Reason: Protocol Stop: 12/22/17 22:01 Multivitamins 10 ml/ Sodium Acetate 30 meq/ Sodium Chloride 40 meq/ Potassium Phosphate 44 meq/ Potassium Acetate 16 meq/ Magnesium Sulfate 10 meq/ Calcium Gluconate 9 meq/ Amino Acids 2,074.817 mls @ 45 mls/hr IVC .Q24H [facility] PRN Reason: Protocol Stop: 06/22/17 16:59 Last Admin: 06/21/17 16:49 Dose: 45 mls/hr Dextrose (Dextrose 10% Water 500 Ml Ivbag) 500 mls @ 50 mls/hr IVC .Q10H PRN PRN Reason: TPN delayed or interrupted Stop: 12/21/17 10:57 Fat Emulsion Intravenous (Intralipid 20%) 250 mls @ 21 mls/hr IVPB DAILY@1700 [facility] Stop: 12/21/17 17:01 Last Infusion: 06/22/17 05:00 Dose: Infused Heparin Sodium/Dextrose (Heparin 25,000 Unit/500 Ml D5w) 25,000 unit in 500 mls @ 18.682 mls/hr IVC .Q24H [facility]; 14 UNIT/KG/HR PRN Reason: Protocol Stop: 12/21/17 11:46 Last Titration: 06/22/17 13:51 Dose: 24.57 unit/kg/hr, 32.8 mls/hr Diltiazem HCl 100 mg/ Dextrose 50 mls @ 2.5 mls/hr IVC .Q20H [facility]; 5 MG/HR PRN Reason: Protocol Stop: 12/21/17 15:31 Last Titration: 06/22/17 13:58 Dose: 2.5 mg/hr, 1.25 mls/hr Cefepime HCl 2,000 mg/ Sterile (Water) 20 mls @ 300 mls/hr IVP Q12HR [facility] Stop: 12/22/17 06:01 Last Infusion: 06/22/17 06:00 Dose: Infused Potassium Phosphate 44 meq/ (Sodium Chloride) 260 mls @ 40 mls/hr IVPB ONCE ONE Stop: 06/22/17 18:29 Sodium Chloride (0.9 % Sodium Chloride) 1,000 mls @ 50 mls/hr IVC .Q20H [facility] Stop: 12/22/17 12:31 Last Admin: 06/22/17 13:00 Dose: 50 mls/hr Multivitamins 10 ml/ Amino (Acids/Electrolytes) 2,010 mls @ 55 mls/hr IVC .Q24H [facility] PRN Reason: Protocol Stop: 06/23/17 16:59 Multi-Ingredient Mucositis [place] (Chloraseptic) 2 spray MM Q2H PRN PRN Reason: Sore Throat Stop: 12/21/17 14:27 Naloxone HCl (Narcan) 0.4 mg IVP Q2MIN PRN PRN Reason: SEE COMMENTS Stop: 12/16/17 11:15 Ondansetron HCl (Zofran) 4 mg IVP Q6HR PRN PRN Reason: Nausea And Vomiting Stop: 12/16/17 11:15 Last Admin: 06/19/17 13:01 Dose: 4 mg Pantoprazole Sodium (Protonix) 40 mg IVP 0630 [facility] Stop: 12/17/17 06:31 Last Admin: 06/22/17 05:54 Dose: 40 mg Throat Lozenges (Cepacol Sore Throat Lozenge) 1 each MM Q2H PRN PRN Reason: Sore Throat Stop: 12/19/17 15:42 Laboratory Tests 06/22/17 06/22/17 04:50 04:50 Hgb 8.8 L Potassium 3.1 L Creatinine 0.59 - Imaging and Cardiology Echo: report reviewed - EKG Interpretation EKG results cardiology: other (Telemetry reviewed with average HR previous 12 hours noted to be 99, sinus rhythm. PVCs noted. PAF noted, short episodes.) - VTE Documentation of Mechanical Device: Intermittent pneumatic compression device Consult Discharge Plan - Plan Referrals: Sara Pfeiffer, FINANCIAL SERVICES EDUCATION CONSULTANT [Primary Care Provider] -
[2017-06-22] MEDS: Heparin 25,000 UNIT/500 ML D5W 25,000 UNIT/500 ML BAG IVC SCH (14:58)
--- NOTE | 2017-06-22 15:14 | Internal Med Progress Note ---
Date of Encounter: 06/22/17 Time of Encounter: 10:00 - Assessment and plan (1) Elevated troponin Current Visit: Yes Status: Acute Assessment and plan: Cardiology saw patient. Patient denies chest pain. Consider demand ischemia. However, cardiology recommended stress test as outpatient. (2) Colonic mass Current Visit: Yes Status: Acute Assessment and plan: s/p makayla colectomy cont post op care as per surgery Still NPO. On IVF TPN started (3) New onset a-fib Current Visit: Yes Status: Acute Assessment and plan: Converted and keep at NSR Cardiology consult appreciated. Heparin drip started per cardiology. May start by mouth anticoagulation after patient resume diet. On low rate cardizem drip to maintain low HR Patient is at high risk because she is on heparin drip, need close monitoring (4) DVT prophylaxis Current Visit: No Status: Acute Assessment and plan: Patient is on heparin drip (5) Pneumonia Current Visit: Yes Status: Acute Assessment and plan: CXR on 06/20 suspected pneumonia. Pt has no fever or cough. On levaquin iv. May finish 5 day course. Qualifiers: Pneumonia type: due to Pneumococcus Laterality: bilateral Lung location: lower lobe of lung Qualified Code(s): J13 - Pneumonia due to Streptococcus pneumoniae (6) Bacteremia Current Visit: Yes Status: Acute Assessment and plan: 1/ blood culture shows positive for pseudomonas. Pt has no fever. True bacteria vs contamination. Will repeat blood cx. Place pt on cefepime now, waiting for final report and sensitivity. - Time Spent With Patient Greater than 35 minutes - Subjective Interval history: Patient was seen and examined. Complain incision site pain, otherwise feels fine. not passing gas yet. Denies chest pain or shortness of breath. Vital signs stable. Developed A Fib RVR again yesterday. On cardizem drip and converted to sinus rhythm now. On TPN, pt is NPO and on NG tube intermittent low pressure suction per surgery. - Constitutional Vitals: Temp Pulse Resp BP Pulse Ox 97.7 F 88 18 134/67 98 06/22/17 14:45 06/22/17 14:45 06/22/17 14:45 06/22/17 14:45 06/22/17 14:45 General appearance: Present: A&O X 3, no acute distress, answers questions appropriately - Head Head exam: Present: atraumatic, normocephalic - Eye Eye exam: Present: PERRL, conjuntiva pink, sclera anicteric Pupils: Present: PERRL - Neck Neck exam general surgery: Present: supple, trachea midline. Absent: lymphadenopathy - Respiratory Respiratory exam: Present: CTAB. Absent: accessory muscle use, rales, rhonchi, wheezes - Cardiovascular Cardiovascular exam: Present: RRR, +S1, +S2. Absent: diastolic murmur, gallop, rubs, systolic murmur - GI/Abdominal GI/Abdominal exam: Present: normal bowel sounds, soft, tenderness (Mild abd tenderness), no peritoneal signs. Absent: distended - Extremities Exam Extremities exam: Present: warm, radial pulses palpable and symmetrical. Absent : calf tenderness, cyanotic, pedal edema - Neurological Exam Neurological exam: Present: CN II-XII intact, oriented X3, no focal deficits. Absent: pronater drift, facial droop, speech deficit - Skin Skin exam: Present: dry, intact Internal Medicine: Result - Labs CBC & Chem 7: 06/22/17 04:50 06/22/17 04:50 Labs: Short CBC 06/22/17 Range/Units 04:50 WBC 9.9 (4.3-11.1) K/mcL Hgb 8.8 L (11.5-15.4) g/dL Hct 26.8 L (35.3-44.9) % Plt Count 317 (140-400) K/mcL Neutrophils # 8.4 (1.6-8.9) K/mcL BMP 06/22/17 04:50 Sodium 136 Potassium 3.1 L Chloride 104 Carbon Dioxide 23 BUN 21 H Creatinine 0.59 Glucose 162 H Calcium 7.0 L Cardiac Enzymes 06/19/17 06/20/17 Range/Units 22:58 02:56 CK-MB (CK-2) 0 0 (0-4) % - ABG Interpretation ABG results: PT/INR, D-dimer PT 14.4 Seconds (9.4-12.1) H 06/21/17 14:21 - Impressions Impressions Chest/Abdomen X-ray 06/21/17 11:31 IMPRESSION: 1. No gaseous distended or air-fluid levels in the small bowel. 2. Mild gaseous distention of the ascending and transverse colon. Findings are similar to the prior study. 3. Small amount of oral contrast is identified in the descending colon through rectum. 4. No acute cardiopulmonary disease. D/ / 06/21/2017 12:24:47 Praveena Hogue MD / [facility] Interpreting Provider: Praveena Hogue MD - VTE Documentation of Mechanical Device: Intermittent pneumatic compression device Consult Discharge Plan - Plan Referrals: Sara Pfeiffer, [facility] [Primary Care Provider] -
[2017-06-22] MEDS ORDERED: Clinimix E 5%-15% SOLUTION 2,000 ML with MVI, adult with vitamin K 10 ML IVC SCH (17:00)
[2017-06-22] MEDS ORDERED: Levofloxacin 750 MG/150 ML 750 MG/150 ML BAG IVPB SCH (22:00)
[2017-06-22] MEDS: Levofloxacin 750 MG/150 ML 750 MG/150 ML BAG IVPB SCH (23:05)
[2017-06-23 04:09] LABS: Basophils % 0.2 %; Eosinophils # 0.1 K/mcL (0.0-0.6); Eosinophils % 0.6 %; Hematocrit 28.1 % (35.3-44.9); Hemoglobin 9.2 g/dL (11.5-15.4); Immature Granulocytes % 2.1 % (0-4); Lymphocytes # 0.8 K/mcL (0.6-4.6); Lymphocytes % 8.5 %; Mean Corpuscular HGB Conc 32.7 g/dL (31.6-35.5); Mean Corpuscular Hemoglobin 27.3 pg (28.0-33.3); Mean Corpuscular Volume 83.4 fL (83.0-100.0); Mean Platelet Volume 9.4 fL (9.4-12.4); Monocytes # 0.5 K/mcL (0.0-1.3); Monocytes % 4.7 %; Neutrophils # 8.2 K/mcL (1.6-8.9); Platelet Count 331 K/mcL (140-400); Red Blood Count 3.37 M/mcL (3.82-4.97); Red Cell Distribution Width 20.5 % (11.5-14.5); Segmented Neutrophils % 83.9 %
[2017-06-23 04:15] LABS: BUN/Creatinine Ratio 28 (6-26); Blood Urea Nitrogen 15 mg/dL (7-20); Carbon Dioxide 24 mEq/L (19-29); Chloride 104 mEq/L (98-109); Glucose 135 mg/dL (70-99); Osmolality,Calculated 289 (280-300); Phosphorous 1.8 mg/dL (2.3-4.7); Potassium 3.3 mEq/L (3.5-4.5); Sodium 138 mEq/L (136-145); eGFR For African Americans > 60 (> 60); eGFR For Non-African Americans > 60 (> 60)
[2017-06-23 04:39] LABS: Anisocytosis 1+ (Not Present); Platelet Estimate Normal (Normal)
[2017-06-23] MEDS: Cefepime HCl 2,000 MG in Water for inj. (sterile) 20 ML IVP SCH (05:49)
[2017-06-23] MEDS: Pantoprazole 40 MG VIAL IVP SCH (05:49)
[2017-06-23] MEDS: Heparin 25,000 UNIT/500 ML D5W 25,000 UNIT/500 ML BAG IVC SCH (07:30)
[2017-06-23] MEDS ORDERED: Potassium Phosphate 44 MEQ in 0.9 % Sodium Chloride 250 ML IVPB ONE (07:36)
[2017-06-23] MEDS: *HR* Heparin 5,000 UNIT/ML VIAL IVP PRN (11:19)
--- NOTE | 2017-06-23 14:24 | General Surgery Progress Note ---
Date of Encounter: 06/23/17 Time of Encounter: 14:00 - Assessment and Plan (1) Colonic mass Current Visit: Yes Status: Acute POD #8 ascending [address] resection with Dr[address] 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 CEA 3.1 Bowel rest- ice chips only (1 cup every 8 hours) NG tube to LIWS (inserted 06/20/17) PICC and TPN- total fluid rate 60ml/hour Edge Banding Machine Offbearer consult for management of TPN Supportive care and pain control IS every 1 hour while awake Ambulate hallways TID with assistance PT/OT daily for mobilization Repeat am labs (2) GERD (gastroesophageal reflux disease) Current Visit: Yes Status: Chronic PPI therapy daily Qualifiers: Esophagitis presence: esophagitis presence not specified Qualified Code(s) : K21.9 - Gastro-esophageal reflux disease without esophagitis (3) New onset a-fib Current Visit: Yes Status: Acute Cardizem gtt 2.5mg/hour Currently in [facility] Hospitalist following Okay for anticoagulation from a surgical standpoint (4) Electrolyte imbalance Current Visit: Yes Status: Acute Replace phosphorus and potassium per hospitalist Repeat am labs (5) Postoperative ileus Current Visit: Yes Status: Acute Bowel rest except ice chips only NG tube to LIWS SBFT today with gastrograffin Await return of bowel function PICC and TPN (6) Moderate protein-calorie malnutrition Current Visit: Yes Status: Acute Continue TPN- total fluid rate 60ml/hour Edge Banding Machine Offbearer consult for start and management of TPN (7) DVT prophylaxis Current Visit: No Status: Acute EPCDs to bilateral lower extremities for DVT prophylaxis Ambulate hallways TID with assistance Heparin gtt (therapeutic) for atrial fibrillation Subjective Patient reports: no new complaints, feels better, voiding w/o difficulty, no flatus, bowel movement, diarrhea (loose stool last evening), afebrile, other ( Patient was able to take a shower today) Objective Vital Signs - Last 8 Hours Temp Pulse Resp BP Pulse Ox 06/23/17 10:23 97.7 F 91 16 129/74 95 06/23/17 07:17 98.5 F 96 16 147/74 95 Intake and Output 06/22/17 06/23/17 06/23/17 23:59 07:59 15:59 Intake Total 479.4 / 479.4 1462.1 / 1462.1 57 / 57 Output Total 2600 / 2600 1300 / 1300 800 / 800 Balance -2120.6 / -2120.6 162.1 / 162.1 -743 / -743 Intake: IV Fluids 479.4 / 479.4 1462.1 / 1462.1 57 / 57 0.9 % Sodium Chloride 1,000 ML 724 / 724 @ 50 mls/hr IVC .Q20H [facility] Rx#: [id number] Heparin 25,000 UNIT/500 ML D5W 190 / 190 310 / 310 57 / 57 25,000 unit In 500 ml @ 14 UNIT /KG/HR 18.682 mls/hr IVC .Q24H [facility] Rx#:[id number] Cardizem 100 MG In Dextrose 5% 9.4 / 9.4 8.1 / 8.1 (ADD-[place]) 50 ML @ 5 MG/HR 2 .5 mls/hr IVC .Q20H [facility] Rx#: [id number] Maxipime 2,000 MG In Water for 20 / 20 20 / 20 inj. (sterile) 20 ML @ 300 mls/ hr IVP Q12HR [facility] Rx#:[id number] Intralipid 20% 250 ML @ 21 mls/ 250 / 250 hr IVPB DAILY@1700 [facility] Rx#: [id number] Levaquin Premix 750mg/150 mL 150 / 150 750 mg In 150 ml @ 100 mls/hr IVPB Q24H [facility] Rx#:[id number] Potassium Phosphate 44 MEQ In 0 260 / 260 .9 % Sodium Chloride 250 ML @ 40 mls/hr IVPB ONCE ONE Rx#: [id number] Oral 0 / 0 0 / 0 0 / 0 Output: Urine 1600 / 1600 0 / 0 Gastric Drainage 1000 / 1000 1300 / 1300 800 / 800 Other: Meal NPO npo Percent of Meal Consumed 0% Weight 74.2 kg Blood Glucose* 176 166 142 Patient Weight 06/23/17 23:59 Weight 74.2 kg - General physical appearance well developed, no distress, no pain - Eyes normal ocular movement - ENT dry mucosa, atraumatic, normocephalic - Neck Neck exam: trachea midline - Respiratory normal respiratory effort, clear to auscultation - Cardiovascular Cardiovascular exam: Present: RRR - Abdomen Abdomen: Present: bowel sounds present (minimal, hypoactive), soft, tender ( Minimal, expected tenderness), wound (NG tube to low intermittent wall suction with 2100 mL's of drainage since midnight (bilious)) - Incision Incision: Present: clean and dry, intact, serosanguinous (LUQ incision with small amount of drainage noted) - Neurologic CN 2-12 grossly intact - Musculoskeletal other (moderate deconditioning) - Psychiatric oriented to time, oriented to person, oriented to place, speech is normal, memory intact - Labs 06/23/17 03:40 06/23/17 03:40 Diabetes panel 06/23/17 Range/Units 03:40 Sodium 138 (136-145) mEq/L Potassium 3.3 L (3.5-4.5) mEq/L Chloride 104 (98-109) mEq/L Carbon Dioxide 24 (19-29) mEq/L BUN 15 (7-20) mg/dL Creatinine 0.54 L (0.57-1.11) mg/dL Glucose 135 H (70-99) mg/dL Calcium 7.0 L (8.6-10.8) mg/dL Calcium panel 06/23/17 Range/Units 03:40 Calcium 7.0 L (8.6-10.8) mg/dL Phosphorus 1.8 L D (2.3-4.7) mg/dL Pituitary panel 06/23/17 Range/Units 03:40 Sodium 138 (136-145) mEq/L Potassium 3.3 L (3.5-4.5) mEq/L Chloride 104 (98-109) mEq/L Carbon Dioxide 24 (19-29) mEq/L BUN 15 (7-20) mg/dL Creatinine 0.54 L (0.57-1.11) mg/dL Glucose 135 H (70-99) mg/dL Calcium 7.0 L (8.6-10.8) mg/dL Adrenal panel 06/23/17 Range/Units 03:40 Sodium 138 (136-145) mEq/L Potassium 3.3 L (3.5-4.5) mEq/L Chloride 104 (98-109) mEq/L Carbon Dioxide 24 (19-29) mEq/L BUN 15 (7-20) mg/dL Creatinine 0.54 L (0.57-1.11) mg/dL Glucose 135 H (70-99) mg/dL Calcium 7.0 L (8.6-10.8) mg/dL - VTE Documentation of Mechanical Device: Intermittent pneumatic compression device Consult Discharge Plan - Plan Referrals: Sara Pfeiffer, [employer] [Primary Care Provider] - - Attending Attestation For this encounter, I have reviewed the COAT TAILOR or PA documentation, treatment plan, and medical decision making; and I have had face to face time with this patient.
--- NOTE | 2017-06-23 15:16 | Internal Med Progress Note ---
Date of Encounter: 06/23/17 Time of Encounter: 10:00 - Assessment and plan (1) Elevated troponin Current Visit: Yes Status: Acute Assessment and plan: Cardiology saw patient. Patient denies chest pain. Consider demand ischemia. However, cardiology recommended stress test as outpatient. (2) Colonic mass Current Visit: Yes Status: Acute Assessment and plan: s/p makayla colectomy cont post op care as per surgery Still NPO. On IVF TPN started (3) New onset a-fib Current Visit: Yes Status: Acute Assessment and plan: Converted and keep at NSR Cardiology consult appreciated. Heparin drip started per cardiology. May start by mouth anticoagulation after patient resume diet. On low rate cardizem drip to maintain low HR Patient is at high risk because she is on heparin drip, need close monitoring (4) DVT prophylaxis Current Visit: No Status: Acute Assessment and plan: Patient is on heparin drip (5) Pneumonia Current Visit: Yes Status: Acute Assessment and plan: CXR on 06/20 suspected pneumonia. Pt has no fever or cough. On levaquin iv. May switch to po if diet resumed. May prolong treatment b/o bacteremia. Qualifiers: Pneumonia type: due to Pneumococcus Laterality: bilateral Lung location: lower lobe of lung Qualified Code(s): J13 - Pneumonia due to Streptococcus pneumoniae (6) Bacteremia Current Visit: Yes Status: Acute Assessment and plan: 1/ blood culture shows positive for pseudomonas. Pt has no fever. True bacteria vs contamination. Repeat blood cx negative. Final report shows pseudomonus sensitive to levaquin, will d/c cefepime, cont levaquin, may finish a 10 day course, may switch to po after diet resumed.. - Time Spent With Patient Greater than 35 minutes - Subjective Interval history: Patient was seen and examined. Generally feels fine. Had BM last night. Denies chest pain or shortness of breath. Vital signs stable. HR controlled by low rate cardizem drip. On TPN, pt is NPO and on NG tube intermittent low pressure suction per surgery. - Constitutional Vitals: Temp Pulse Resp BP Pulse Ox 97.7 F 91 16 129/74 95 06/23/17 10:23 06/23/17 10:23 06/23/17 10:23 06/23/17 10:23 06/23/17 10:23 General appearance: Present: A&O X 3, no acute distress, answers questions appropriately - Head Head exam: Present: atraumatic, normocephalic - Eye Eye exam: Present: PERRL, conjuntiva pink, sclera anicteric Pupils: Present: PERRL - Neck Neck exam general surgery: Present: supple, trachea midline. Absent: lymphadenopathy - Respiratory Respiratory exam: Present: CTAB. Absent: accessory muscle use, rales, rhonchi, wheezes - Cardiovascular Cardiovascular exam: Present: RRR, +S1, +S2. Absent: diastolic murmur, gallop, rubs, systolic murmur - GI/Abdominal GI/Abdominal exam: Present: normal bowel sounds, soft, no peritoneal signs. Absent: distended, tenderness - Extremities Exam Extremities exam: Present: warm, radial pulses palpable and symmetrical. Absent : calf tenderness, cyanotic, pedal edema - Neurological Exam Neurological exam: Present: CN II-XII intact, oriented X3, no focal deficits. Absent: pronater drift, facial droop, speech deficit - Skin Skin exam: Present: dry, intact Internal Medicine: Result - Labs CBC & Chem 7: 06/23/17 03:40 06/23/17 03:40 Labs: Short CBC 06/23/17 Range/Units 03:40 WBC 9.8 (4.3-11.1) K/mcL Hgb 9.2 L (11.5-15.4) g/dL Hct 28.1 L (35.3-44.9) % Plt Count 331 (140-400) K/mcL Neutrophils # 8.2 (1.6-8.9) K/mcL BMP 06/23/17 03:40 Sodium 138 Potassium 3.3 L Chloride 104 Carbon Dioxide 24 BUN 15 Creatinine 0.54 L Glucose 135 H Calcium 7.0 L - ABG Interpretation ABG results: PT/INR, D-dimer PT 14.4 Seconds (9.4-12.1) H 06/21/17 14:21 - VTE Documentation of Mechanical Device: Intermittent pneumatic compression device Consult Discharge Plan - Plan Referrals: Sara Pfeiffer, MEDIA PLANNER / BUYER [Primary Care Provider] -
[2017-06-23] MEDS: 0.9 % Sodium Chloride 1,000 ML IVC SCH (16:42)
[2017-06-23] MEDS ORDERED: Clinimix E 5%-15% SOLUTION 2,000 ML with MVI, adult with vitamin K 10 ML, Potassium P... IVC SCH (17:00)
[2017-06-23] MEDS ORDERED: *HR* Metoprolol 5 MG/5 ML VIAL IVP PRN (18:17)
[2017-06-23] MEDS: Ondansetron 4 MG/2 ML VIAL IVP PRN (19:35)
[2017-06-23] MEDS: Levofloxacin 750 MG/150 ML 750 MG/150 ML BAG IVPB SCH (22:58)
[2017-06-24] MEDS: *HR* Heparin 5,000 UNIT/ML VIAL IVP PRN (01:14)
[2017-06-24 04:28] LABS: Hematocrit 28.1 % (35.3-44.9); Hemoglobin 9.3 g/dL (11.5-15.4); Mean Corpuscular HGB Conc 33.1 g/dL (31.6-35.5); Mean Corpuscular Hemoglobin 27.6 pg (28.0-33.3); Mean Corpuscular Volume 83.4 fL (83.0-100.0); Mean Platelet Volume 9.5 fL (9.4-12.4); Platelet Count 347 K/mcL (140-400); Red Blood Count 3.37 M/mcL (3.82-4.97); Red Cell Distribution Width 20.8 % (11.5-14.5)
[2017-06-24 04:38] LABS: BUN/Creatinine Ratio 31 (6-26); Blood Urea Nitrogen 17 mg/dL (7-20); Calcium 7.7 mg/dL (8.6-10.8); Carbon Dioxide 27 mEq/L (19-29); Chloride 104 mEq/L (98-109); Glucose 120 mg/dL (70-99); Magnesium 2.5 mg/dL (1.6-2.6); Osmolality,Calculated 299 (280-300); Phosphorous 2.2 mg/dL (2.3-4.7); Potassium 3.2 mEq/L (3.5-4.5); Sodium 143 mEq/L (136-145); eGFR For African Americans > 60 (> 60); eGFR For Non-African Americans > 60 (> 60)
[2017-06-24 04:52] LABS: Anisocytosis 2+ (Not Present); Monocytes # 0.8 K/mcL (0.0-1.3); Neutrophils # 9.8 K/mcL (1.6-8.9); Platelet Estimate Normal (Normal)
[2017-06-24 04:53] LABS: Microcytosis Present (Not Present); Polychromasia 1+ (Not Present)
[2017-06-24] MEDS: Heparin 25,000 UNIT/500 ML D5W 25,000 UNIT/500 ML BAG IVC SCH (05:34)
[2017-06-24] MEDS: Pantoprazole 40 MG VIAL IVP SCH (05:35)
[2017-06-24] MEDS ORDERED: 0.9 % Sodium Chloride 1,000 ML IVC SCH (07:34)
[2017-06-24] MEDS ORDERED: Potassium Chloride 40 MEQ, Lidocaine 1% 2 ML in D5% in Water 500 ML IVPB ONE (07:34)
--- NOTE | 2017-06-24 09:02 | General Surgery Progress Note ---
Date of Encounter: 06/24/17 Time of Encounter: 08:59 - Assessment and Plan (1) Colonic mass Current Visit: Yes Status: Acute With her continued ileus I am going to administer neostigmine. The protocols and the orders set. She will be transferred to the ICU for application neostigmine. Subjective Patient reports: other (This is 77-year-old female status post robotic right colon resection for cancer. She feels really no better. She continues to have large amounts of output from her NG tube. Her small bowel series revealed an ileus. No specific transition zone.) Objective Vital Signs - Last 8 Hours Temp Pulse Resp BP Pulse Ox 06/24/17 07:14 98.2 F 94 17 160/74 94 06/24/17 04:49 98.2 F 97 15 170/70 96 Intake and Output 06/23/17 06/24/17 06/24/17 23:59 07:59 15:59 Intake Total 1282 / 1282 433 / 433 80 / 80 Output Total 2875 / 2875 900 / 900 120 / 120 Balance -1593 / -1593 -467 / -467 -40 / -40 Intake: IV Fluids 1282 / 1282 433 / 433 80 / 80 Heparin 25,000 UNIT/500 ML D5W 160 / 160 283 / 283 80 / 80 25,000 unit In 500 ml @ 14 UNIT /KG/HR 18.682 mls/hr IVC .Q24H [facility] Rx#:[id number] Clinimix E 5%-15% SOLUTION 2, 1122 / 1122 000 ML @ 55 mls/hr IVC .Q24H [facility] with M.v.i. Adult 10 ml Rx# :[id number] Levaquin Premix 750mg/150 mL 150 / 150 750 mg In 150 ml @ 100 mls/hr IVPB Q24H [facility] Rx#:[id number] Oral 0 / 0 0 / 0 Infusion Intake 0 / 0 Output: Urine 0 / 0 200 / 200 Emesis 75 / 75 Gastric Drainage 2800 / 2800 700 / 700 120 / 120 Other: Meal Dinner NPO Weight 74.5 kg Blood Glucose* 158 135 Patient Weight 06/24/17 23:59 Weight 74.5 kg - General physical appearance well developed - Eyes PERRL - ENT normal nares - Neck Neck exam: trachea midline - Abdomen Abdomen: Present: soft, distended - Musculoskeletal normal posture - Psychiatric oriented to time, oriented to person, oriented to place - Labs 06/24/17 03:45 06/24/17 03:45 Diabetes panel 06/24/17 Range/Units 03:45 Sodium 143 (136-145) mEq/L Potassium 3.2 L (3.5-4.5) mEq/L Chloride 104 (98-109) mEq/L Carbon Dioxide 27 (19-29) mEq/L BUN 17 (7-20) mg/dL Creatinine 0.55 L (0.57-1.11) mg/dL Glucose 120 H (70-99) mg/dL Calcium 7.7 L (8.6-10.8) mg/dL Calcium panel 06/24/17 Range/Units 03:45 Calcium 7.7 L (8.6-10.8) mg/dL Phosphorus 2.2 L (2.3-4.7) mg/dL Pituitary panel 06/24/17 Range/Units 03:45 Sodium 143 (136-145) mEq/L Potassium 3.2 L (3.5-4.5) mEq/L Chloride 104 (98-109) mEq/L Carbon Dioxide 27 (19-29) mEq/L BUN 17 (7-20) mg/dL Creatinine 0.55 L (0.57-1.11) mg/dL Glucose 120 H (70-99) mg/dL Calcium 7.7 L (8.6-10.8) mg/dL Adrenal panel 06/24/17 Range/Units 03:45 Sodium 143 (136-145) mEq/L Potassium 3.2 L (3.5-4.5) mEq/L Chloride 104 (98-109) mEq/L Carbon Dioxide 27 (19-29) mEq/L BUN 17 (7-20) mg/dL Creatinine 0.55 L (0.57-1.11) mg/dL Glucose 120 H (70-99) mg/dL Calcium 7.7 L (8.6-10.8) mg/dL - VTE Documentation of Mechanical Device: Intermittent pneumatic compression device Consult Discharge Plan - Plan Referrals: Sara Pfeiffer, ERP DEVELOPER [Primary Care Provider] -
[2017-06-24] MEDS ORDERED: SODIUM CHLORIDE 0.9% IVC SCH (09:15)
[2017-06-24] MEDS ORDERED: NEOSTIGMINE METHYLSULFATE IVC SCH (09:15)
[2017-06-24] MEDS ORDERED: Heparin 25,000 UNIT/500 ML D5W 25,000 UNIT/500 ML BAG IVC SCH (10:23)
[2017-06-24] MEDS ORDERED: D10% in Water 500 ML IVC PRN (10:23)
[2017-06-24] MEDS ORDERED: Clinimix E 5%-15% SOLUTION 2,000 ML with MVI, adult with vitamin K 10 ML, Potassium P... IVC SCH ×2 (10:23→17:00)
[2017-06-24] MEDS ORDERED: *HR* Metoprolol 5 MG/5 ML VIAL IVP PRN (10:23)
[2017-06-24] MEDS ORDERED: Naloxone 0.4 MG/ML INJ IVP PRN (10:23)
[2017-06-24] MEDS ORDERED: *HR* Heparin 5,000 UNIT/ML VIAL IVP PRN ×2 (10:23)
[2017-06-24] MEDS ORDERED: Artificial Tears SOLN 15 ML BOTTLE BOTH EYES PRN (10:23)
[2017-06-24] MEDS ORDERED: Chloraseptic Spray 177 ML BOTTLE MM PRN (10:23)
[2017-06-24] MEDS ORDERED: *HR* HYDROmorphone (PF) 1 MG/ML SYRINGE IVP PRN (10:23)
[2017-06-24] MEDS ORDERED: Neostigmine Methylsulfate 3 MG in 0.9 % Sodium Chloride 250 ML IVC SCH (10:45)
[2017-06-24] MEDS: dilTIAZem HCl 100 MG in D5% in Water 50 ML IVC SCH ×2 (10:46→10:48)
[2017-06-24] MEDS: 0.9 % Sodium Chloride 1,000 ML IVC SCH ×2 (10:46→10:54)
[2017-06-24] MEDS ORDERED: *HR* Atropine Sulfate 1 MG/10 ML SYRINGE ONE (10:56)
[2017-06-24] MEDS ORDERED: Neostigmine Methylsulfate 3 MG in 0.9 % Sodium Chloride 250 ML IVC ONE (11:15)
[2017-06-24] MEDS: Ondansetron 4 MG/2 ML VIAL IVP PRN ×2 (11:36→18:00)
--- NOTE | 2017-06-24 16:01 | Internal Med Progress Note ---
Date of Encounter: 06/24/17 Time of Encounter: 10:00 - Assessment and plan (1) Elevated troponin Current Visit: Yes Status: Acute Assessment and plan: Cardiology saw patient. Patient denies chest pain. Consider demand ischemia. However, cardiology recommended stress test as outpatient. (2) Colonic mass Current Visit: Yes Status: Acute Assessment and plan: s/p makayla colectomy cont post op care as per surgery Still NPO. On IVF TPN started Neostimine drip for ileus today. (3) New onset a-fib Current Visit: Yes Status: Acute Assessment and plan: Converted and keep at NSR Cardiology consult appreciated. Heparin drip started per cardiology. Will switch to lovenox 1mg/kg sc as pt less likely to have more procedure. May start by mouth anticoagulation after patient resume diet. On low rate cardizem drip and PRN iv metoprolol to maintain low HR. (4) DVT prophylaxis Current Visit: No Status: Acute Assessment and plan: Patient is on full dose Lovenox (5) Pneumonia Current Visit: Yes Status: Acute Assessment and plan: CXR on 06/20 suspected pneumonia. Pt has no fever or cough. On levaquin iv. May switch to po if diet resumed. May prolong treatment b/o bacteremia. Qualifiers: Pneumonia type: due to Pneumococcus Laterality: bilateral Lung location: lower lobe of lung Qualified Code(s): J13 - Pneumonia due to Streptococcus pneumoniae (6) Bacteremia Current Visit: Yes Status: Acute Assessment and plan: 1/ blood culture shows positive for pseudomonas. Pt has no fever. True bacteria vs contamination. Repeat blood cx negative. Final report shows pseudomonus sensitive to levaquin, will cont levaquin, may finish a 10 day course, may switch to po after diet resumed.. - Time Spent With Patient 25 - 35 minutes - Subjective Interval history: Patient was seen and examined. Generally feels fine. Still has poor bowel movement, not passing gas. Pt denies chest pain or shortness of breath. Vital signs stable. On TPN, pt is NPO and on NG tube intermittent low pressure suction per surgery. Pt was transferred to ICU for neostigmine drip for her ileus today. - Constitutional Vitals: Temp Pulse Resp BP Pulse Ox 98.4 F 90 20 156/66 91 06/24/17 15:28 06/24/17 15:00 06/24/17 15:00 06/24/17 15:00 06/24/17 15:00 General appearance: Present: A&O X 3, no acute distress, answers questions appropriately - Head Head exam: Present: atraumatic, normocephalic - Eye Eye exam: Present: PERRL, conjuntiva pink, sclera anicteric Pupils: Present: PERRL - Neck Neck exam general surgery: Present: supple, trachea midline. Absent: lymphadenopathy - Respiratory Respiratory exam: Present: CTAB. Absent: accessory muscle use, rales, rhonchi, wheezes - Cardiovascular Cardiovascular exam: Present: RRR, +S1, +S2. Absent: diastolic murmur, gallop, rubs, systolic murmur - GI/Abdominal GI/Abdominal exam: Present: normal bowel sounds, soft, no peritoneal signs. Absent: distended, tenderness - Extremities Exam Extremities exam: Present: warm, radial pulses palpable and symmetrical. Absent : calf tenderness, cyanotic, pedal edema - Neurological Exam Neurological exam: Present: CN II-XII intact, oriented X3, no focal deficits. Absent: pronater drift, facial droop, speech deficit - Skin Skin exam: Present: dry, intact Internal Medicine: Result - Labs CBC & Chem 7: 06/24/17 03:45 06/24/17 03:45 Labs: Short CBC 06/24/17 Range/Units 03:45 WBC 12.5 H (4.3-11.1) K/mcL Hgb 9.3 L (11.5-15.4) g/dL Hct 28.1 L (35.3-44.9) % Plt Count 347 (140-400) K/mcL Neutrophils # 9.8 H (1.6-8.9) K/mcL BMP 06/24/17 03:45 Sodium 143 Potassium 3.2 L Chloride 104 Carbon Dioxide 27 BUN 17 Creatinine 0.55 L Glucose 120 H Calcium 7.7 L - ABG Interpretation ABG results: PT/INR, D-dimer PT 14.4 Seconds (9.4-12.1) H 06/21/17 14:21 - Impressions Impressions Small Bowel X-Ray 06/23/17 14:30 IMPRESSION: 1. Multiple dilated loops of small bowel, measuring up to 4.7 cm in diameter. No evidence of colonic opacification after 15 hours. Differential remains ileus versus distal small bowel obstruction. Recommend follow-up abdominal radiograph to monitor progress of contrast. D/ / 06/24/2017 09:19:44 Joey Chapman MD / Viktoriya Harrell Interpreting Provider: Joey Chapman MD - VTE Documentation of Mechanical Device: Intermittent pneumatic compression device Consult Discharge Plan - Plan Referrals: Sara Pfeiffer, SUPERVISOR PAINTING [Primary Care Provider] -
[2017-06-24] MEDS: *HR* Enoxaparin 80 MG/0.8 ML SYRINGE SQ SCH (17:19)
[2017-06-24] MEDS ORDERED: Levofloxacin 750 MG/150 ML 750 MG/150 ML BAG IVPB SCH (22:00)
[2017-06-25] MEDS: dilTIAZem HCl 100 MG in D5% in Water 50 ML IVC SCH ×2 (04:38→19:57)
[2017-06-25] MEDS: 0.9 % Sodium Chloride 1,000 ML IVC SCH ×2 (04:39)
[2017-06-25] MEDS: *HR* Enoxaparin 80 MG/0.8 ML SYRINGE SQ SCH ×2 (05:54→19:48)
[2017-06-25 06:24] LABS: Hemoglobin 9.4 g/dL (11.5-15.4); Mean Corpuscular HGB Conc 32.4 g/dL (31.6-35.5); Mean Corpuscular Hemoglobin 27.6 pg (28.0-33.3); Mean Corpuscular Volume 85.3 fL (83.0-100.0); Mean Platelet Volume 9.6 fL (9.4-12.4); Platelet Count 407 K/mcL (140-400); Red Cell Distribution Width 20.5 % (11.5-14.5)
[2017-06-25] MEDS ORDERED: Pantoprazole 40 MG VIAL IVP SCH (06:30)
[2017-06-25 06:32] LABS: BUN/Creatinine Ratio 36 (6-26); Blood Urea Nitrogen 21 mg/dL (7-20); Calcium 7.6 mg/dL (8.6-10.8); Carbon Dioxide 30 mEq/L (19-29); Chloride 103 mEq/L (98-109); Glucose 129 mg/dL (70-99); Magnesium 2.1 mg/dL (1.6-2.6); Osmolality,Calculated 291 (280-300); Phosphorous 2.4 mg/dL (2.3-4.7); Potassium 3.6 mEq/L (3.5-4.5); Sodium 138 mEq/L (136-145); eGFR For African Americans > 60 (> 60); eGFR For Non-African Americans > 60 (> 60)
[2017-06-25 06:48] LABS: Lymphocytes # 1.2 K/mcL (0.6-4.6); Monocytes # 1.2 K/mcL (0.0-1.3); Neutrophils # 12.9 K/mcL (1.6-8.9); Platelet Estimate Normal (Normal)
--- NOTE | 2017-06-25 08:21 | Internal Med Progress Note ---
Date of Encounter: 06/25/17 Time of Encounter: 08:21 - Assessment and plan (1) Anemia Current Visit: Yes Status: Chronic Assessment and plan: Pt has hx of chronic anemia related to chronic disease. At this time she appears to be about baseline. Qualifiers: Anemia type: other cause Other causes of anemia: chronic disease, other Qualified Code(s): D63.8 - Anemia in other chronic diseases classified elsewhere (2) Bacteremia Current Visit: Yes Status: Acute Assessment and plan: Had one blood culture with pseudomonas. Repeat peripheral stick was negative. Will repeat culture from port again as well. Continue current abx regimen. (3) Postoperative ileus Current Visit: Yes Status: Acute Assessment and plan: Per surgical service - Subjective Interval history: Ms Ny is currently admitted for post op ileus. We having been following as a medical consult. She remains moderate risk at this time. Ms. Ny is resting comfortably in ICU. She appears to have had small BM yesterday. NG in place. No fever or chills or other acute issues. - Constitutional Vitals: Temp Pulse Resp BP Pulse Ox 98.2 F 105 16 136/72 99 06/25/17 07:49 06/25/17 07:48 06/25/17 07:00 06/25/17 07:00 06/25/17 07:00 General appearance: Present: A&O X 3, answers questions appropriately - Head Head exam: Present: atraumatic, normocephalic - Eye Eye exam: Present: normal appearance, conjuntiva pink - ENT ENT exam: Present: mucous membranes dry Additional comments: NG in place - Respiratory Respiratory exam: Present: decreased breath sounds. Absent: rales, rhonchi, wheezes - Cardiovascular Cardiovascular exam: Present: irregular rhythm. Absent: tachycardia - GI/Abdominal GI/Abdominal exam: Present: soft - Extremities Exam Extremities exam: Present: warm. Absent: tenderness - Neurological Exam Neurological exam: Present: alert, oriented X3 - Skin Skin exam: Present: dry, warm. Absent: rash Internal Medicine: Result - Labs CBC & Chem 7: 06/25/17 06:10 06/25/17 06:10 Labs: Short CBC 06/25/17 Range/Units 06:10 WBC 15.3 H (4.3-11.1) K/mcL Hgb 9.4 L (11.5-15.4) g/dL Hct 29.0 L (35.3-44.9) % Plt Count 407 H (140-400) K/mcL Neutrophils # 12.9 H (1.6-8.9) K/mcL BMP 06/25/17 06:10 Sodium 138 Potassium 3.6 Chloride 103 Carbon Dioxide 30 H BUN 21 H Creatinine 0.59 Glucose 129 H Calcium 7.6 L - ABG Interpretation ABG results: PT/INR, D-dimer PT 14.4 Seconds (9.4-12.1) H 06/21/17 14:21 - Impressions Impressions Small Bowel X-Ray 06/23/17 14:30 IMPRESSION: 1. Multiple dilated loops of small bowel, measuring up to 4.7 cm in diameter. No evidence of colonic opacification after 15 hours. Differential remains ileus versus distal small bowel obstruction. Recommend follow-up abdominal radiograph to monitor progress of contrast. D/ / 06/24/2017 09:19:44 Joey Chapman MD / Viktoriya Harrell Interpreting Provider: Joey Chapman MD X-Ray 06/24/17 15:33 IMPRESSION: 1. No evidence of small bowel obstruction. Multiple dilated loops of small bowel probably represent an ileus. 2. Colonic and sigmoid diverticulosis. D/ / 06/24/2017 15:58:48 Joey Chapman MD / nolan Interpreting Provider: Joey Chapman MD Chest/Abdomen X-ray 06/25/17 08:00 IMPRESSION: 1. Dilated loops of small bowel. Contrast is present within the colon. Findings are suggestive of ileus. 2. No free intraperitoneal air. D/ / Arnel Madrigal MD / Arnel Madrigal MD Interpreting Provider: Arnel Madrigal MD - VTE Documentation of Mechanical Device: Intermittent pneumatic compression device Consult Discharge Plan - Plan Referrals: Sara Pfeiffer, LUMBER LOADER [Primary Care Provider] -
--- NOTE | 2017-06-25 09:56 | General Surgery Progress Note ---
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 She denies flatus but does say she had one bowel movement this morning and 1 last night - No bowel sounds present, will remain on nothing by mouth diet with ice chips. - No longer requiring neostigmine, will stop and transfer back to telemetry floor - Continue to monitor for decreased NG tube output, signs of bowel transit, start ducolax (2) Colonic mass Current Visit: Yes Status: Acute As above, status post right colectomy postoperative day #9 (3) Electrolyte imbalance Current Visit: Yes Status: Acute - Potassium of 3.6 - Most likely secondary to decreased oral intake - We will continue to monitor. Magnesium at appropriate levels of 2.1 (4) Moderate protein-calorie malnutrition Current Visit: Yes Status: Acute Continue TPN at 60 mL/h - Dietitian consultation (5) Elevated troponin Current Visit: Yes Status: Acute - Troponin peak of 0.15, has down trended - Cardiology following, recommend stress test as outpatient (6) DVT prophylaxis Current Visit: Yes Status: Acute Lovenox 70 mg every 12 hours Subjective Patient reports: no new complaints, feels better, no flatus, bowel movement Narrative: Patient was seen and examined at bedside this morning. She is postoperative day #9 following right colon resection with subsequent ileus. He was transferred to the ICU day for neostigmine. She states that today he continues to not experience any pain, nausea, vomiting. She did experience some mild nausea yesterday evening however is not had any this morning. She does state she drinks 1 small bowel movement yesterday evening but does not believe she is passing gas. Objective Vital Signs - Last 8 Hours Temp Pulse Resp BP Pulse Ox 06/25/17 09:00 110 18 143/60 97 06/25/17 08:00 107 16 122/66 95 06/25/17 07:49 98.2 F 06/25/17 07:48 105 06/25/17 07:00 105 16 136/72 99 06/25/17 06:00 103 14 130/68 98 06/25/17 05:00 105 14 115/66 98 06/25/17 04:55 98.0 F 06/25/17 04:00 110 16 146/66 98 06/25/17 03:00 101 16 125/61 98 06/25/17 02:00 96 16 146/64 98 Intake and Output 06/24/17 06/25/17 06/25/17 23:59 07:59 15:59 Intake Total 1064 / 1064 Output Total 925 / 925 0 / 0 Balance -925 / -925 1064 / 1064 Intake: IV Fluids 150 / 150 Levaquin Premix 750mg/150 mL 150 / 150 750 mg In 150 ml @ 100 mls/hr IVPB Q[facility]H [facility] Rx#:[id number] Other 914 / 914 Output: Urine 225 / 225 Gastric Drainage 700 / 700 0 / 0 Other: Weight 67.6 kg Blood Glucose* 147 140 Patient Weight 06/25/17 23:59 Weight 67.6 kg - General physical appearance well developed, well nourished, no distress - Respiratory normal expansion, normal respiratory effort, clear to auscultation - Cardiovascular Cardiovascular exam: Present: RRR, no murmurs/rubs/gallops - Abdomen Abdomen: Present: soft, non tender. Absent: bowel sounds present - Labs 06/25/17 06:10 06/25/17 06:10 Diabetes panel 06/25/17 Range/Units 06:10 Sodium 138 (136-145) mEq/L Potassium 3.6 (3.5-4.5) mEq/L Chloride 103 (98-109) mEq/L Carbon Dioxide 30 H (19-29) mEq/L BUN 21 H (7-20) mg/dL Creatinine 0.59 (0.57-1.11) mg/dL Glucose 129 H (70-99) mg/dL Calcium 7.6 L (8.6-10.8) mg/dL Calcium panel 06/25/17 Range/Units 06:10 Calcium 7.6 L (8.6-10.8) mg/dL Phosphorus 2.4 (2.3-4.7) mg/dL Pituitary panel 06/25/17 Range/Units 06:10 Sodium 138 (136-145) mEq/L Potassium 3.6 (3.5-4.5) mEq/L Chloride 103 (98-109) mEq/L Carbon Dioxide 30 H (19-29) mEq/L BUN 21 H (7-20) mg/dL Creatinine 0.59 (0.57-1.11) mg/dL Glucose 129 H (70-99) mg/dL Calcium 7.6 L (8.6-10.8) mg/dL Adrenal panel 06/25/17 Range/Units 06:10 Sodium 138 (136-145) mEq/L Potassium 3.6 (3.5-4.5) mEq/L Chloride 103 (98-109) mEq/L Carbon Dioxide 30 H (19-29) mEq/L BUN 21 H (7-20) mg/dL Creatinine 0.59 (0.57-1.11) mg/dL Glucose 129 H (70-99) mg/dL Calcium 7.6 L (8.6-10.8) mg/dL - VTE Documentation of Mechanical Device: Intermittent pneumatic compression device Consult Discharge Plan - Plan Referrals: Sara Pfeiffer, SECRETARY OF POLICE [Primary Care Provider] - <Osmany Gomes - Last Filed: 06/26/17 07:58> Date of Encounter: 06/25/17 Objective Vital Signs - Last 8 Hours Temp Pulse Resp BP Pulse Ox 06/26/17 03:45 98.3 F 91 18 137/68 94 06/26/17 03:28 96 Intake and Output 06/25/17 06/25/17 06/26/17 15:59 23:59 07:59 Intake Total 1150 / 1150 0 / 0 Output Total 375 / 375 450 / 450 950 / 950 Balance -375 / -375 700 / 700 -950 / -950 Intake: IV Fluids 1150 / 1150 0.9 % Sodium Chloride 1,000 ML 1000 / 1000 @ 30 mls/hr IVC .Q24H [facility] Rx#: [id number] Cardizem 100 MG In Dextrose 5% 0 / 0 (ADD-[place]) 50 ML @ 5 MG/HR 2 .5 mls/hr IVC .Q20H [facility] Rx#: [id number] Levaquin Premix 750mg/150 mL 150 / 150 750 mg In 150 ml @ 100 mls/hr IVPB Q24H [facility] Rx#:[id number] Free Water Intake Amount 0 / 0 0 / 0 Output: Urine 375 / 375 450 / 450 Gastric Tube Lavage Amount 0 / 0 0 / 0 Left Nare 0 / 0 0 / 0 Gastric Drainage 950 / 950 Other: # Voids 1 Weight 68.1 kg Blood Glucose* 136 131 119 Patient Weight 06/26/17 23:59 Weight 68.1 kg - Labs 06/25/17 06:10 06/26/17 03:19 Diabetes panel 06/26/17 Range/Units 03:19 Sodium 138 (136-145) mEq/L Potassium 4.0 (3.5-4.5) mEq/L Chloride 106 (98-109) mEq/L Carbon Dioxide 27 (19-29) mEq/L BUN 21 H (7-20) mg/dL Creatinine 0.56 L (0.57-1.11) mg/dL Glucose 108 H (70-99) mg/dL Calcium 7.9 L (8.6-10.8) mg/dL Calcium panel 06/26/17 Range/Units 03:19 Calcium 7.9 L (8.6-10.8) mg/dL Phosphorus 2.2 L (2.3-4.7) mg/dL Pituitary panel 06/26/17 Range/Units 03:19 Sodium 138 (136-145) mEq/L Potassium 4.0 (3.5-4.5) mEq/L Chloride 106 (98-109) mEq/L Carbon Dioxide 27 (19-29) mEq/L BUN 21 H (7-20) mg/dL Creatinine 0.56 L (0.57-1.11) mg/dL Glucose 108 H (70-99) mg/dL Calcium 7.9 L (8.6-10.8) mg/dL Adrenal panel 06/26/17 Range/Units 03:19 Sodium 138 (136-145) mEq/L Potassium 4.0 (3.5-4.5) mEq/L Chloride 106 (98-109) mEq/L Carbon Dioxide 27 (19-29) mEq/L BUN 21 H (7-20) mg/dL Creatinine 0.56 L (0.57-1.11) mg/dL Glucose 108 H (70-99) mg/dL Calcium 7.9 L (8.6-10.8) mg/dL - Attending Attestation I examined this patient and my medical decision-making was reviewed with the Resident Physician. I agree with the documented findings, disposition and treatment plan as described except to the extent set forth below. I reviewed the above assessment and evaluation and agree with the above plan.
[2017-06-25] MEDS ORDERED: Chloraseptic Spray 177 ML BOTTLE MM PRN ×2 (13:49→14:40)
[2017-06-25] MEDS ORDERED: 0.9 % Sodium Chloride 1,000 ML IVC SCH (13:49)
[2017-06-25] MEDS ORDERED: Artificial Tears SOLN 15 ML BOTTLE BOTH EYES PRN ×2 (13:49→14:40)
[2017-06-25] MEDS ORDERED: Ondansetron 4 MG/2 ML VIAL IVP PRN ×2 (13:49→14:40)
[2017-06-25] MEDS ORDERED: Naloxone 0.4 MG/ML INJ IVP PRN ×2 (13:49→14:40)
[2017-06-25] MEDS ORDERED: D10% in Water 500 ML IVC PRN ×2 (13:49→14:40)
[2017-06-25] MEDS ORDERED: *HR* HYDROmorphone (PF) 1 MG/ML SYRINGE IVP PRN ×2 (13:49→14:40)
[2017-06-25] MEDS ORDERED: dilTIAZem HCl 100 MG in D5% in Water 50 ML IVC SCH (13:49)
[2017-06-25] MEDS ORDERED: *HR* Metoprolol 5 MG/5 ML VIAL IVP PRN ×2 (13:49→14:40)
[2017-06-25] MEDS ORDERED: Clinimix E 5%-15% SOLUTION 2,000 ML with MVI, adult with vitamin K 10 ML, Potassium P... IVC SCH ×2 (13:49→14:40)
[2017-06-25] MEDS ORDERED: Clinimix E 5%-15% SOLUTION 2,000 ML with MVI, adult with vitamin K 10 ML IVC SCH ×3 (17:00)
[2017-06-25] MEDS ORDERED: *HR* Enoxaparin 80 MG/0.8 ML SYRINGE SQ SCH (18:00)
[2017-06-25] MEDS ORDERED: Levofloxacin 750 MG/150 ML 750 MG/150 ML BAG IVPB SCH (22:00)
[2017-06-25] MEDS: Levofloxacin 750 MG/150 ML 750 MG/150 ML BAG IVPB SCH (22:15)
[2017-06-26 04:20] LABS: BUN/Creatinine Ratio 38 (6-26); Blood Urea Nitrogen 21 mg/dL (7-20); Calcium 7.9 mg/dL (8.6-10.8); Carbon Dioxide 27 mEq/L (19-29); Chloride 106 mEq/L (98-109); Glucose 108 mg/dL (70-99); Magnesium 2.1 mg/dL (1.6-2.6); Osmolality,Calculated 290 (280-300); Phosphorous 2.2 mg/dL (2.3-4.7); Sodium 138 mEq/L (136-145); eGFR For African Americans > 60 (> 60); eGFR For Non-African Americans > 60 (> 60)
[2017-06-26] MEDS: Pantoprazole 40 MG VIAL IVP SCH (06:22)
[2017-06-26] MEDS: *HR* Enoxaparin 80 MG/0.8 ML SYRINGE SQ SCH ×2 (06:25→17:02)
[2017-06-26] MEDS ORDERED: Pantoprazole 40 MG VIAL IVP SCH (06:30)
[2017-06-26 08:22] LABS: Basophils # 0.1 K/mcL (0.0-0.2); Basophils % 0.7 %; Eosinophils # 0.2 K/mcL (0.0-0.6); Eosinophils % 1.7 %; Hematocrit 24.8 % (35.3-44.9); Hemoglobin 8.7 g/dL (11.5-15.4); Immature Granulocytes % 9.6 % (0-4); Lymphocytes # 1.2 K/mcL (0.6-4.6); Lymphocytes % 12.2 %; Mean Corpuscular HGB Conc 35.1 g/dL (31.6-35.5); Mean Corpuscular Hemoglobin 31.3 pg (28.0-33.3); Mean Corpuscular Volume 89.2 fL (83.0-100.0); Monocytes # 0.9 K/mcL (0.0-1.3); Monocytes % 8.8 %; Neutrophils # 6.8 K/mcL (1.6-8.9); Platelet Count 382 K/mcL (140-400); Red Blood Count 2.78 M/mcL (3.82-4.97); Red Cell Distribution Width 21.4 % (11.5-14.5)
--- NOTE | 2017-06-26 08:33 | Internal Med Progress Note ---
Date of Encounter: 06/26/17 Time of Encounter: 08:33 - Assessment and plan (1) Atrial fibrillation Current Visit: Yes Status: Acute Assessment and plan: Now in NSR and not tachycardic. Off cardizem drip. Continue to follow. Qualifiers: Atrial fibrillation type: paroxysmal Qualified Code(s): I48.0 - Paroxysmal atrial fibrillation (2) Anemia Current Visit: Yes Status: Chronic Assessment and plan: H/H fluctuating around baseline. Following. Qualifiers: Anemia type: other cause Other causes of anemia: chronic disease, other Qualified Code(s): D63.8 - Anemia in other chronic diseases classified elsewhere (3) Bacteremia Current Visit: Yes Status: Acute Assessment and plan: Repeat blood cx in past was negative. Completing abx. (4) Postoperative ileus Current Visit: Yes Status: Acute Assessment and plan: Per surgical service - Subjective Interval history: Ms Ny is currently admitted for post op ileus. We having been following as a medical consult. She remains moderate risk at this time. Ms. Ny is alert and resting. Denies pain currently. Said she noticed some "gurgling" on L side of abdomen earlier today. Card drip stopped as she is now in NSR and not tachycardic. - Constitutional Vitals: Temp Pulse Resp BP Pulse Ox 97.9 F 96 18 156/67 96 06/26/17 07:56 06/26/17 07:56 06/26/17 07:56 06/26/17 07:56 06/26/17 07:56 General appearance: Present: A&O X 3, answers questions appropriately - Head Head exam: Present: atraumatic, normocephalic - Eye Eye exam: Present: EOMI, conjuntiva pink - ENT ENT exam: Present: mucous membranes dry - Respiratory Respiratory exam: Present: CTAB. Absent: rhonchi, wheezes - Cardiovascular Cardiovascular exam: Present: RRR. Absent: tachycardia - GI/Abdominal GI/Abdominal exam: Present: soft - Extremities Exam Extremities exam: Present: warm. Absent: tenderness - Neurological Exam Neurological exam: Present: alert, oriented X3 - Skin Skin exam: Present: warm. Absent: rash Internal Medicine: Result - Labs CBC & Chem 7: 06/26/17 08:12 06/26/17 03:19 Labs: Short CBC 06/26/17 Range/Units 08:12 WBC 10.1 (4.3-11.1) K/mcL Hgb 8.7 L (11.5-15.4) g/dL Hct 24.8 L (35.3-44.9) % Plt Count 382 (140-400) K/mcL [facility] 06/26/17 03:19 Sodium 138 Potassium 4.0 Chloride 106 Carbon Dioxide 27 BUN 21 H Creatinine 0.56 L Glucose 108 H Calcium 7.9 L - ABG Interpretation ABG results: PT/INR, D-dimer PT 14.4 Seconds (9.4-12.1) H 06/21/17 14:21 - VTE Documentation of Mechanical Device: Intermittent pneumatic compression device Consult Discharge Plan - Plan Referrals: Sara Pfeiffer, HR SHARED SERVICES CONSULTANT [Primary Care Provider] -
[2017-06-26 08:43] LABS: Platelet Estimate Normal (Normal)
--- NOTE | 2017-06-26 10:07 | General Surgery Progress Note ---
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 Discontinued and transferred from ICU on 06/25 - NG tube in place with 950 mL since midnight and 1.5 L total yesterday output. Improving. - She reports no nausea, vomiting this morning. She denies flatus but does say she had one bowel movement yesterday - Bowel sounds present on exam today, however with large NG tube output and mild distention, will remain on nothing by mouth diet with ice chips. - Will order abdominal Xray for distention. - Continue to monitor for decreased NG tube output, signs of bowel transit, start ducolax (2) Colonic mass Current Visit: Yes Status: Acute As above, status post right colectomy postoperative day #10 (3) Electrolyte imbalance Current Visit: Yes Status: Acute - Potassium of 4.0. At desired levels >4 - Most likely secondary to decreased oral intake - We will continue to monitor. Magnesium at appropriate levels of 2.1 (4) Moderate protein-calorie malnutrition Current Visit: Yes Status: Acute Continue TPN at 60 mL/h - Dietitian consultation (5) Elevated troponin Current Visit: Yes Status: Acute - Troponin peak of 0.15, has down trended - Cardiology following, recommend stress test as outpatient (6) DVT prophylaxis Current Visit: Yes Status: Acute Lovenox 70 mg every 12 hours Subjective Patient reports: no new complaints, no flatus, bowel movement Narrative: Patient was seen and examined at bedside this morning. She states she continues to have no pain, nausea, vomiting. She states she is still not passing gas however she did experience one bowel movement yesterday which was loose in nature. She has no other complaints at this time. Objective Vital Signs - Last 8 Hours Temp Pulse Resp BP Pulse Ox 06/26/17 07:56 97.9 F 96 18 156/67 96 06/26/17 03:45 98.3 F 91 18 137/68 94 06/26/17 03:28 96 Intake and Output 06/25/17 06/26/17 06/26/17 23:59 07:59 15:59 Intake Total 1150 / 1150 0 / 0 Output Total 450 / 450 950 / 950 800 / 800 Balance 700 / 700 -950 / -950 -800 / -800 Intake: IV Fluids 1150 / 1150 0.9 % Sodium Chloride 1,000 ML 1000 / 1000 @ 30 mls/hr IVC .Q24H [facility] Rx#: [id number] Cardizem 100 MG In Dextrose 5% 0 / 0 (ADD-[place]) 50 ML @ 5 MG/HR 2 .5 mls/hr IVC .Q20H [facility] Rx#: [id number] Levaquin Premix 750mg/150 mL 150 / 150 750 mg In 150 ml @ 100 mls/hr IVPB Q24H [facility] Rx#:[id number] Free Water Intake Amount 0 / 0 0 / 0 Output: Urine 450 / 450 Gastric Tube Lavage Amount 0 / 0 0 / 0 Left Nare 0 / 0 0 / 0 Gastric Drainage 950 / 950 800 / 800 Other: Weight 68.1 kg Blood Glucose* 131 151 Patient Weight 06/26/17 23:59 Weight 68.1 kg - General physical appearance well developed, well nourished, no distress - Respiratory normal expansion, normal respiratory effort, clear to auscultation - Cardiovascular Cardiovascular exam: Present: RRR, no murmurs/rubs/gallops - Abdomen Abdomen: Present: bowel sounds present, soft, tender (Mild) Abdominal Tenderness: RLQ - Incision Incision: Present: clean and dry, intact - Labs 06/26/17 08:12 06/26/17 03:19 Diabetes panel 06/26/17 Range/Units 03:19 Sodium 138 (136-145) mEq/L Potassium 4.0 (3.5-4.5) mEq/L Chloride 106 (98-109) mEq/L Carbon Dioxide 27 (19-29) mEq/L BUN 21 H (7-20) mg/dL Creatinine 0.56 L (0.57-1.11) mg/dL Glucose 108 H (70-99) mg/dL Calcium 7.9 L (8.6-10.8) mg/dL Calcium panel 06/26/17 Range/Units 03:19 Calcium 7.9 L (8.6-10.8) mg/dL Phosphorus 2.2 L (2.3-4.7) mg/dL Pituitary panel 06/26/17 Range/Units 03:19 Sodium 138 (136-145) mEq/L Potassium 4.0 (3.5-4.5) mEq/L Chloride 106 (98-109) mEq/L Carbon Dioxide 27 (19-29) mEq/L BUN 21 H (7-20) mg/dL Creatinine 0.56 L (0.57-1.11) mg/dL Glucose 108 H (70-99) mg/dL Calcium 7.9 L (8.6-10.8) mg/dL Adrenal panel 06/26/17 Range/Units 03:19 Sodium 138 (136-145) mEq/L Potassium 4.0 (3.5-4.5) mEq/L Chloride 106 (98-109) mEq/L Carbon Dioxide 27 (19-29) mEq/L BUN 21 H (7-20) mg/dL Creatinine 0.56 L (0.57-1.11) mg/dL Glucose 108 H (70-99) mg/dL Calcium 7.9 L (8.6-10.8) mg/dL - VTE Documentation of Mechanical Device: Intermittent pneumatic compression device Consult Discharge Plan - Plan Referrals: Sara Pfeiffer, BRAZING MACHINE TENDER [Primary Care Provider] - <Osmany Gomes - Last Filed: 06/27/17 06:38> Date of Encounter: 06/26/17 Objective Vital Signs - Last 8 Hours Temp Pulse Resp BP Pulse Ox 06/27/17 04:43 93 17 96 06/27/17 03:53 98.4 F 17 152/85 96 06/27/17 00:22 96 18 95 06/26/17 23:20 98.1 F 102 18 159/79 95 Intake and Output 06/26/17 06/26/17 06/27/17 15:59 23:59 07:59 Intake Total 1250 / 1250 0 / 0 250 / 250 Output Total 800 / 800 600 / 600 Balance 450 / 450 -600 / -600 240 / 240 Intake: IV Fluids 1250 / 1250 250 / 250 0.9 % Sodium Chloride 1,000 ML 1000 / 1000 @ 30 mls/hr IVC .Q24H [facility] Rx#: [id number] Intralipid 20% 250 ML @ 21 mls/ 250 / 250 250 / 250 hr IVPB DAILY@1700 [facility] Rx#: [id number] Free Water Intake Amount 0 / 0 0 / 0 Output: Urine 200 / 200 Gastric Tube Lavage Amount Left Nare Gastric Drainage 800 / 800 400 / 400 Other: Stool Size Small Stool Consistency liquid Stool Characteristics Normal for Patient Stool Color Brown # Voids 1 # Bowel Movements 1 Blood Glucose* 133 134 126 - Labs 06/27/17 04:15 06/26/17 03:19 - Attending Attestation I examined this patient and my medical decision-making was reviewed with the Resident Physician. I agree with the documented findings, disposition and treatment plan as described except to the extent set forth below. I reviewed the above assessment and evaluation with the resident. The patient has some mild distention but feels better. No noted flatus. NG tube still in place. Will obtain abdominal x-ray to see whether or not there is still any evidence of objective distention. Addendum: Abdominal x-ray still shows presence of contrast from her last study ( legal small bowel follow-through on 06/23/2017). Will continue with NG tube at this time. Continue TPN.
[2017-06-26] MEDS: dilTIAZem HCl 100 MG in D5% in Water 50 ML IVC SCH (14:58)
[2017-06-26] MEDS: 0.9 % Sodium Chloride 1,000 ML IVC SCH (15:00)
[2017-06-26] MEDS ORDERED: Clinimix E 5%-15% SOLUTION 2,000 ML with MVI, adult with vitamin K 10 ML IVC SCH ×3 (17:00)
[2017-06-26] MEDS: Bisacodyl 10 MG RECTAL SUPPOSITORY RC SCH (17:02)
[2017-06-26] MEDS: Levofloxacin 750 MG/150 ML 750 MG/150 ML BAG IVPB SCH (22:21)
[2017-06-27 04:24] LABS: Eosinophils # 0.2 K/mcL (0.0-0.6); Hematocrit 26.3 % (35.3-44.9); Mean Corpuscular HGB Conc 34.2 g/dL (31.6-35.5); Mean Corpuscular Hemoglobin 30.5 pg (28.0-33.3); Mean Corpuscular Volume 89.2 fL (83.0-100.0); Mean Platelet Volume 9.7 fL (9.4-12.4); Monocytes # 0.8 K/mcL (0.0-1.3); Platelet Count 392 K/mcL (140-400); Red Blood Count 2.95 M/mcL (3.82-4.97); Red Cell Distribution Width 21.3 % (11.5-14.5)
[2017-06-27 04:45] LABS: Neutrophils # 8.2 K/mcL (1.6-8.9); Platelet Estimate Normal (Normal)
[2017-06-27 04:47] LABS: Anisocytosis 1+ (Not Present); Poikilocytosis 1+ (Not Present)
[2017-06-27] MEDS: *HR* Enoxaparin 80 MG/0.8 ML SYRINGE SQ SCH ×2 (06:25→17:25)
[2017-06-27] MEDS: Pantoprazole 40 MG VIAL IVP SCH (06:26)
[2017-06-27 07:03] LABS: BUN/Creatinine Ratio 37 (6-26); Blood Urea Nitrogen 19 mg/dL (7-20); Carbon Dioxide 24 mEq/L (19-29); Chloride 106 mEq/L (98-109); Glucose 105 mg/dL (70-99); Magnesium 1.9 mg/dL (1.6-2.6); Osmolality,Calculated 287 (280-300); Phosphorous 2.8 mg/dL (2.3-4.7); Sodium 137 mEq/L (136-145); eGFR For African Americans > 60 (> 60); eGFR For Non-African Americans > 60 (> 60)
[2017-06-27] MEDS: Bisacodyl 10 MG RECTAL SUPPOSITORY RC SCH (08:34)
--- NOTE | 2017-06-27 08:57 | General Surgery Progress Note ---
<Rena Morales - Last Filed: 06/27/17 09:41> Date of Encounter: 06/27/17 Time of Encounter: 08:57 - Assessment and Plan (1) Colonic mass Current Visit: Yes Status: Acute POD #11 s/p Robotic right hemicoloectomy 06/16/2017 (pathology 06/17/2017 pT3, pN0, pMn/a (stage IIA)) Postoperative ilues (recently in ICU for neostigmine over the weekend) Denies n/v, but endorses continued abdominal distention. Plan Await return of Bowel function: Replace electrolytes PRN; Repeat am labs Continue NG-noted 2150 ml of output in the last 24 hours Continue PICC and TPN Add Reglan for bowel stimulation, continue dulcolax suppositories, add MOM enemas BID continue G.I. and DVT prophylaxis continue comfort measures out of bed TID with assistance. PT and OT for mobilization in DC planning; may clamp NG for up to 30 mins (TID) for therapy sessions and ambulation (2) Postoperative ileus Current Visit: Yes Status: Acute Significant distention remains. PER KUB on 06/25, the enteric tip is noted in the pyloris. Will pull back aprox 5 cm and repeat KUB. IF after NG is repositioned she experiences significant output, she will need fluids replaced. Otherwise; See plan above (3) Electrolyte imbalance Current Visit: Yes Status: Acute Replace electrolytes as indicated. (4) Anemia Current Visit: Yes Status: Chronic Acute on chronic anemia. Hgb stable and no overt signs of bleeding noted. Repeat AM labs. Qualifiers: Anemia type: other cause Other causes of anemia: chronic disease, other Qualified Code(s): D63.8 - Anemia in other chronic diseases classified elsewhere (5) New onset a-fib Current Visit: Yes Status: Acute Management per cardiology Subjective Patient reports: feels better, voiding w/o difficulty, no flatus, no bowel movement, afebrile Narrative: Reports continued abdominal distention. She states she is belching but denies flatus. She states she thinks that she may have had a small bowel movement mixed in with her urine this morning. Objective Vital Signs - Last 8 Hours Temp Pulse Resp BP Pulse Ox 06/27/17 06:54 98.2 F 99 16 158/90 97 06/27/17 04:43 93 17 96 06/27/17 03:53 98.4 F 17 152/85 96 Intake and Output 06/26/17 06/27/17 06/27/17 23:59 07:59 15:59 Intake Total 0 / 0 250 / 250 Output Total 600 / 600 Balance -600 / -600 240 / 240 Intake: IV Fluids 250 / 250 Intralipid 20% 250 ML @ 21 mls/ 250 / 250 hr IVPB DAILY@1700 [facility] Rx#: [id number] Free Water Intake Amount 0 / 0 0 / 0 Output: Urine 200 / 200 Gastric Tube Lavage Amount Left Nare Gastric Drainage 400 / 400 Other: Stool Size Small Stool Consistency liquid Stool Characteristics Normal for Patient Stool Color Brown # Voids 1 # Bowel Movements 1 Blood Glucose* 134 121 - General physical appearance no distress - Eyes normal ocular movement - ENT normal nares (NG noted), atraumatic, normocephalic - Neck Neck exam: trachea midline - Respiratory normal expansion, normal respiratory effort, clear to auscultation - Cardiovascular Cardiovascular exam: Present: RRR, murmurs - Abdomen Abdomen: Present: bowel sounds present (Faint and hypoactive), soft, non tender , distended (significantly distended) Hernia: none - Incision Incision: Present: clean and dry, intact - Integumentary no growths - Neurologic normal coordination, normal sensation - Musculoskeletal normal posture - Psychiatric oriented to time, oriented to person, oriented to place, speech is normal, memory intact - Labs 06/27/17 04:15 06/27/17 06:30 Diabetes panel 06/27/17 Range/Units 06:30 Sodium 137 (136-145) mEq/L Potassium 4.0 (3.5-4.5) mEq/L Chloride 106 (98-109) mEq/L Carbon Dioxide 24 (19-29) mEq/L BUN 19 (7-20) mg/dL Creatinine 0.52 L (0.57-1.11) mg/dL Glucose 105 H (70-99) mg/dL Calcium 8.0 L (8.6-10.8) mg/dL Calcium panel 06/27/17 Range/Units 06:30 Calcium 8.0 L (8.6-10.8) mg/dL Phosphorus 2.8 (2.3-4.7) mg/dL Pituitary panel 06/27/17 Range/Units 06:30 Sodium 137 (136-145) mEq/L Potassium 4.0 (3.5-4.5) mEq/L Chloride 106 (98-109) mEq/L Carbon Dioxide 24 (19-29) mEq/L BUN 19 (7-20) mg/dL Creatinine 0.52 L (0.57-1.11) mg/dL Glucose 105 H (70-99) mg/dL Calcium 8.0 L (8.6-10.8) mg/dL Adrenal panel 06/27/17 Range/Units 06:30 Sodium 137 (136-145) mEq/L Potassium 4.0 (3.5-4.5) mEq/L Chloride 106 (98-109) mEq/L Carbon Dioxide 24 (19-29) mEq/L BUN 19 (7-20) mg/dL Creatinine 0.52 L (0.57-1.11) mg/dL Glucose 105 H (70-99) mg/dL Calcium 8.0 L (8.6-10.8) mg/dL - VTE Documentation of Mechanical Device: Intermittent pneumatic compression device Consult Discharge Plan - Plan Referrals: Sara Pfeiffer, GRAPHIC [employer]ESS TRADES WORKER [Primary Care Provider] - (Office will not make a followup appointment until we have a discharge order) Anna Martinez GRAPHIC [employer] PRESS TRADES WORKER [Advanced Practice Nurse] - (Cardiology office will call patient at home with follow up appointment) <Osmany Gomes - Last Filed: 06/28/17 16:50> Date of Encounter: 06/27/17 Objective Vital Signs - Last 8 Hours Temp Pulse Resp BP Pulse Ox 06/28/17 15:45 98 16 141/71 98 06/28/17 15:15 96 15 148/63 98 06/28/17 15:00 101 20 148/86 94 06/28/17 14:45 97 17 163/73 94 06/28/17 14:40 93 18 152/71 95 06/28/17 14:35 96 24 149/71 97 06/28/17 14:30 95 20 140/74 95 06/28/17 14:25 80 24 170/73 93 06/28/17 14:20 101 20 154/100 96 06/28/17 14:15 90 18 129/75 98 06/28/17 14:00 80 18 136/76 98 06/28/17 13:00 97.6 F 95 18 139/73 96 Intake and Output 06/28/17 06/28/17 06/28/17 07:59 15:59 23:59 Intake Total 1250 / 1250 1140 / 1140 Output Total 1700 / 1700 500 / 500 Balance -450 / -450 640 / 640 Intake: IV Fluids 1250 / 1250 1140 / 1140 0.9 % Sodium Chloride 1,000 ML 1000 / 1000 1140 / 1140 @ 250 mls/hr IVC .Q4H [facility] Rx#: [id number] Intralipid 20% 250 ML @ 21 mls/ 250 / 250 hr IVPB DAILY@1700 [facility] Rx#: [id number] Oral 0 / 0 0 / 0 Free Water Intake Amount 0 / 0 Output: Urine 0 / 0 Gastric Tube Lavage Amount 1700 / 1700 Left Nare 1700 / 1700 Gastric Drainage 500 / 500 Other: Meal npo Blood Glucose* 177 93 - Labs 06/28/17 05:20 06/28/17 05:20 Diabetes panel 06/28/17 Range/Units 05:20 Sodium 138 (136-145) mEq/L Potassium 3.9 (3.5-4.5) mEq/L Chloride 108 (98-109) mEq/L Carbon Dioxide 21 (19-29) mEq/L BUN 25 H (7-20) mg/dL Creatinine 0.60 (0.57-1.11) mg/dL Glucose 132 H (70-99) mg/dL Calcium 8.0 L (8.6-10.8) mg/dL Calcium panel 06/28/17 Range/Units 05:20 Calcium 8.0 L (8.6-10.8) mg/dL Phosphorus 3.3 (2.3-4.7) mg/dL Pituitary panel 06/28/17 Range/Units 05:20 Sodium 138 (136-145) mEq/L Potassium 3.9 (3.5-4.5) mEq/L Chloride 108 (98-109) mEq/L Carbon Dioxide 21 (19-29) mEq/L BUN 25 H (7-20) mg/dL Creatinine 0.60 (0.57-1.11) mg/dL Glucose 132 H (70-99) mg/dL Calcium 8.0 L (8.6-10.8) mg/dL Adrenal panel 06/28/17 Range/Units 05:20 Sodium 138 (136-145) mEq/L Potassium 3.9 (3.5-4.5) mEq/L Chloride 108 (98-109) mEq/L Carbon Dioxide 21 (19-29) mEq/L BUN 25 H (7-20) mg/dL Creatinine 0.60 (0.57-1.11) mg/dL Glucose 132 H (70-99) mg/dL Calcium 8.0 L (8.6-10.8) mg/dL - Attending Attestation I have personally performed a face to face evaluation on this patient. I have reviewed and agree with the care plan. History and Exam by me shows: I reviewed the above assessment and evaluation and agree with the above plan.
[2017-06-27] MEDS ORDERED: Milk and Molasses Enema 200 ML RC SCH (09:00)
[2017-06-27] MEDS ORDERED: *HR* Metoprolol 5 MG/5 ML VIAL IVP SCH (11:32)
--- NOTE | 2017-06-27 11:38 | Internal Med Progress Note ---
<DaveBaylee - Last Filed: 06/27/17 15:57> Date of Encounter: 06/27/17 Time of Encounter: 11:34 - Assessment and plan (1) New onset a-fib Current Visit: Yes Status: Acute Assessment and plan: new onset Afib CHADS/VASC: 4 seen by cardiology, has since signed off. currently off cardizem gtt Echo 06/20/17 showed LVEF 65%, normal LV chamber size, wall thickness, f unction , mild ventricular diastolic dysfunciton, normal RV structure and function, mild LV diastolic dysfunction, normal RV structureand function, mild aortic sclerosis, mild tricuspid regurg, moderate pulmonary HTN. Plan: scheduled lopressor Q6H with holding parameters. per cardio recs, start PO cardizem when patient is no longer NPO, along with oral anticoag. if no further needs, will likely sign off tomorrow. (2) Anemia Current Visit: Yes Status: Chronic Assessment and plan: stable Qualifiers: Anemia type: other cause Other causes of anemia: chronic disease, other Qualified Code(s): D63.8 - Anemia in other chronic diseases classified elsewhere (3) Bacteremia Current Visit: Yes Status: Acute Assessment and plan: Blood culture 1/2 positive for pseudomonas Plan: on Levaquin. (4) Postoperative ileus Current Visit: Yes Status: Acute Assessment and plan: Per surgical service (5) DVT prophylaxis Current Visit: Yes Status: Acute Assessment and plan: therapeutic Lovenox for Afib. - Subjective Interval history: 77F evaluated at bedside. patient denies nausea, vomiting, diarrhea, fever, chills, chest pain, shortness of breath. she denies any further problems today. - Constitutional Vitals: Temp Pulse Resp BP Pulse Ox 98.2 F 109 16 156/84 96 06/27/17 11:25 06/27/17 11:25 06/27/17 11:25 06/27/17 11:25 06/27/17 11:25 General appearance: Present: A&O X 3, answers questions appropriately - Head Head exam: Present: atraumatic, normocephalic - Neck Neck exam general surgery: Present: supple, trachea midline - Respiratory Respiratory exam: Present: CTAB - Cardiovascular Cardiovascular exam: Present: +S1, +S2, tachycardia - GI/Abdominal GI/Abdominal exam: Present: diminished bowel sounds, distended, soft. Absent: tenderness - Extremities Exam Extremities exam: Absent: cyanotic, pedal edema - Neurological Exam Neurological exam: Present: alert, oriented X3, no focal deficits - Psychiatric Psychiatric exam: Present: normal affect, normal mood - Skin Skin exam: Present: normal color. Absent: cyanosis, rash Internal Medicine: Result - Labs CBC & Chem 7: 06/27/17 04:15 06/27/17 06:30 Labs: Short CBC 06/27/17 Range/Units 04:15 WBC 10.2 (4.3-11.1) K/mcL Hgb 9.0 L (11.5-15.4) g/dL Hct 26.3 L (35.3-44.9) % Plt Count 392 (140-400) K/mcL Neutrophils # 8.2 (1.6-8.9) K/mcL BMP 06/27/17 06:30 Sodium 137 Potassium 4.0 Chloride 106 Carbon Dioxide 24 BUN 19 Creatinine 0.52 L Glucose 105 H Calcium 8.0 L - ABG Interpretation ABG results: PT/INR, D-dimer PT 14.4 Seconds (9.4-12.1) H 06/21/17 14:21 - Impressions Impressions Abdomen X-Ray 06/26/17 11:17 IMPRESSION: Decreased small bowel distention D/ / Farhat Vargas MD / Farhat Vargas MD Interpreting Provider: Farhat Vargas MD X-Ray 06/27/17 10:22 IMPRESSION: Appropriate esophagogastric tube positioning. D/ / Goldy Butterfield / Goldy Butterfield Interpreting Provider: Goldy Butterfield - VTE Documentation of Mechanical Device: Intermittent pneumatic compression device Consult Discharge Plan - Plan Referrals: Sara Pfeiffer, RADIOLOGIC TECHNOLOGY TEACHER [Primary Care Provider] - (Office will not make a followup appointment until we have a discharge order) Anna Martinez RADIOLOGIC TECHNOLOGY TEACHER [Advanced Practice Nurse] - (Cardiology office will call patient at home with follow up appointment) <Stan Geiger - Last Filed: 06/27/17 16:16> Date of Encounter: 06/27/17 - Assessment and plan (1) Atrial fibrillation Current Visit: Yes Status: Acute Qualifiers: Atrial fibrillation type: paroxysmal Qualified Code(s): I48.0 - Paroxysmal atrial fibrillation (2) Anemia Current Visit: Yes Status: Chronic Qualifiers: Anemia type: other cause Other causes of anemia: chronic disease, other Qualified Code(s): D63.8 - Anemia in other chronic diseases classified elsewhere (3) Bacteremia Current Visit: Yes Status: Acute (4) Postoperative ileus Current Visit: Yes Status: Acute - Constitutional Vitals: Temp Pulse Resp BP Pulse Ox 98.6 F 88 17 161/87 96 06/27/17 15:50 06/27/17 15:50 06/27/17 15:50 06/27/17 15:50 06/27/17 15:50 Internal Medicine: Result - Labs CBC & Chem 7: 06/27/17 04:15 06/27/17 06:30 Labs: Short CBC 06/27/17 Range/Units 04:15 WBC 10.2 (4.3-11.1) K/mcL Hgb 9.0 L (11.5-15.4) g/dL Hct 26.3 L (35.3-44.9) % Plt Count 392 (140-400) K/mcL Neutrophils # 8.2 (1.6-8.9) K/mcL BMP 06/27/17 06:30 Sodium 137 Potassium 4.0 Chloride 106 Carbon Dioxide 24 BUN 19 Creatinine 0.52 L Glucose 105 H Calcium 8.0 L - ABG Interpretation ABG results: PT/INR, D-dimer PT 14.4 Seconds (9.4-12.1) H 06/21/17 14:21 - Impressions Impressions KUB X-Ray 06/27/17 10:22 IMPRESSION: Appropriate esophagogastric tube positioning. D/ / Goldy Butterfield / Goldy Butterfield Interpreting Provider: Goldy Butterfield - Attending Attestation I examined this patient and my medical decision-making was reviewed with the Resident Physician on 06/27/17. I agree with the documented findings, disposition and treatment plan as described except to the extent set forth below. Ms Ny is currently admitted for post colon resection with ileus. She had episode of parox a fib but now in sinus rhythm. She remains moderate risk medically. Ms Ny feels OK but mouth is very dry. No worsening abdominal pain. No fever or chills. Remains in NSR at this time. Exam Alert. Comfortable Mucus membranes dry Heart reg and not tachy Lungs diminished Abd soft I/P 1. Parox afib 2. Post op ileus Further diagnoses and plan as above. If remains without new medical issues overnight anticipate we will sign off unless needed.
--- NOTE | 2017-06-27 11:58 | Event Note ---
Date of Encounter: 06/27/17 Time of Encounter: 11:57 s/p pulling back NG 5 cm and follow-up KUB. Pt had 200 ml return. Will leave NG to LIWS, continue bowel stimulation per rectum. Will [id number] tomorrow am.
[2017-06-27] MEDS: Metoclopramide 10 MG/2 ML VIAL IVP SCH ×3 (13:39→23:28)
[2017-06-27] MEDS ORDERED: Clinimix E 5%-15% SOLUTION 2,000 ML with MVI, adult with vitamin K 10 ML IVC SCH (17:00)
[2017-06-27] MEDS: *HR* Metoprolol 5 MG/5 ML VIAL IVP SCH ×2 (17:25→21:53)
[2017-06-27] MEDS: Milk and Molasses Enema 200 ML RC SCH (21:53)
[2017-06-27] MEDS: Levofloxacin 750 MG/150 ML 750 MG/150 ML BAG IVPB SCH (21:54)
[2017-06-28] MEDS: Pantoprazole 40 MG VIAL IVP SCH (05:33)
[2017-06-28] MEDS: *HR* Metoprolol 5 MG/5 ML VIAL IVP SCH ×4 (05:33→23:31)
[2017-06-28] MEDS: Metoclopramide 10 MG/2 ML VIAL IVP SCH ×4 (05:33→23:31)
[2017-06-28] MEDS: *HR* Enoxaparin 80 MG/0.8 ML SYRINGE SQ SCH ×2 (05:33→18:34)
[2017-06-28] MEDS: 0.9 % Sodium Chloride 1,000 ML IVC SCH ×3 (05:34→14:52)
[2017-06-28 05:41] LABS: Basophils # 0.1 K/mcL (0.0-0.2); Basophils % 0.6 %; Eosinophils % 0.1 %; Hematocrit 30.8 % (35.3-44.9); Hemoglobin 10.1 g/dL (11.5-15.4); Immature Granulocytes % 4.1 % (0-4); Lymphocytes % 4.8 %; Mean Corpuscular HGB Conc 32.8 g/dL (31.6-35.5); Mean Corpuscular Hemoglobin 27.9 pg (28.0-33.3); Mean Corpuscular Volume 85.1 fL (83.0-100.0); Mean Platelet Volume 9.6 fL (9.4-12.4); Monocytes # 0.8 K/mcL (0.0-1.3); Neutrophils # 17.1 K/mcL (1.6-8.9); Platelet Count 464 K/mcL (140-400); Red Blood Count 3.62 M/mcL (3.82-4.97); Red Cell Distribution Width 20.7 % (11.5-14.5); Segmented Neutrophils % 86.4 %
[2017-06-28 06:03] LABS: BUN/Creatinine Ratio 42 (6-26); Blood Urea Nitrogen 25 mg/dL (7-20); Carbon Dioxide 21 mEq/L (19-29); Chloride 108 mEq/L (98-109); Glucose 132 mg/dL (70-99); Magnesium 1.7 mg/dL (1.6-2.6); Osmolality,Calculated 292 (280-300); Phosphorous 3.3 mg/dL (2.3-4.7); Potassium 3.9 mEq/L (3.5-4.5); Sodium 138 mEq/L (136-145); eGFR For African Americans > 60 (> 60); eGFR For Non-African Americans > 60 (> 60)
[2017-06-28] MEDS: Bisacodyl 10 MG RECTAL SUPPOSITORY RC SCH (09:35)
--- NOTE | 2017-06-28 09:41 | General Surgery Progress Note ---
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, pN0, pMn/a (stage IIA)) Noted PNA, new onset a-fib, and elevated TNI 06/21-03/03 (management per internal med/cardiology A) Postoperative ilues (recently in ICU for neostigmine (1 dose on 06/24) and was transferred out of ICU on 06/25 following a liquid BM); however, ileus remains unresolved a) Noted gastric output per [employer] as follows 06/23: 3650 06/24: 1420 06/25: 0 recorded 06/26: 2150 06/27: 2100 (during am assessment noted that NG was in pylorus and pt had no NG output, repositioned the NG yielded the recorded output) 06/28: 2099 (1700 ml since midnight, 400 ml this am per bedside rn). pt endorses n/v. b) Has been receiving dulcolax suppositories and MOM enemas with only return of liquid. c) Imaging related to Ileus: small bowel follow-through 06/23 multiple dilated loops of small bowel up to 4.7 cm in diameter, . KUB 06/24 no evidence of small bowel obstruction, multiple dilated loops of small bowel representing an ileus, acute abdominal series 06/25 dilated loops of small bowel contrast is present within the findings suggestive of an ileus, no free intraperitoneal air , NG tube projects at the level of pylorus KUB 06/26 decreased small bowel distention KUB 06/27 (appropriate placement of NG noted) B) Denies abdominal pain, but + distention, vomiting, nausea, denies flatus. Abdomen remains distended and tympanic. There is some ecchymosis noted consistent with Lovenox injections otherwise atraumatic. Incisions are clean, dry, and intact. C) WBC increased from 10.2 to 19.8 with neutrophils at 17.1, no bands or segs noted; Unclear etiology for increased WBC today. Tachycardia (102 BPM), BP 144/ 77 Noted Levaquin IV daily 750 mg -day 8 of (started 06/20) by internal med for PNA Will bolus to replace lost NG output Plan Ileus: 1. Transfer back to ICU for 2-3 doses of neostigmine (1 mg bolus now, 3 mg continuous over 12 hours BID x3 doses). If no improvement will plan for possible surgical intervention 06/29/2017 2. Stop dulcolax and MOM; Continue Reglan 3. Continue NG to LIWS 4. Continue NPO 5. Obtain Acute abdominal series today 6. Replace lost fluid (2L) over 8 hours; strict hourly I/Os Leukocytosis: 1. UA with relfex to culture (via straight cath/gómez insertion) 2. Gómez for accurate I/O management (likely 24-48 hours duration) 3. Blood cultures x2 (one from PICC, one from peripheral) 4. Continue IV ATBX (Levaquin); Consider adding Flagyl and Diflucan Replace electrolytes PRN; Repeat am labs Continue PICC and TPN continue G.I. and DVT prophylaxis (therapeutic Lovenox per Internal Med) continue comfort measures Further recommendations pending above (2) Postoperative ileus Current Visit: Yes Status: Acute Significant distention remains. See plan above (3) Electrolyte imbalance Current Visit: Yes Status: Acute Replace electrolytes as indicated. (4) Anemia Current Visit: Yes Status: Chronic Acute on chronic anemia. Hgb stable and no overt signs of bleeding noted. Repeat AM labs. Qualifiers: Anemia type: other cause Other causes of anemia: chronic disease, other Qualified Code(s): D63.8 - Anemia in other chronic diseases classified elsewhere (5) New onset a-fib Current Visit: Yes Status: Acute Management per cardiology/Internal Med. Patient is tachycardic however this may be related to lost volume per her NG tube. I will replace 2 L over 8 hours. Objective Vital Signs - Last 8 Hours Temp Pulse Resp BP Pulse Ox 06/28/17 07:20 98.4 F 102 16 144/77 96 06/28/17 07:13 98.4 F 102 16 144/77 96 06/28/17 04:56 108 17 92 06/28/17 04:30 98.5 F 116 17 92 Intake and Output 06/27/17 06/28/17 06/28/17 23:59 07:59 15:59 Intake Total 0 / 0 1000 / 1000 0 / 0 Output Total 400 / 400 1700 / 1700 Balance -400 / -400 -700 / -700 0 / 0 Intake: IV Fluids 1000 / 1000 0.9 % Sodium Chloride 1,000 ML 1000 / 1000 @ 30 mls/hr IVC .Q24H [facility] Rx#: [id number] Oral 0 / 0 0 / 0 Free Water Intake Amount 0 / 0 0 / 0 Output: Urine 0 / 0 Gastric Tube Lavage Amount 400 / 400 1700 / 1700 Left Nare 400 / 400 1700 / 1700 Other: Meal npo Stool Size Copious Stool Consistency liquid Stool Color Brown Blood Glucose* 127 177 - Labs 06/28/17 05:20 06/28/17 05:20 Diabetes panel 06/28/17 Range/Units 05:20 Sodium 138 (136-145) mEq/L Potassium 3.9 (3.5-4.5) mEq/L Chloride 108 (98-109) mEq/L Carbon Dioxide 21 (19-29) mEq/L BUN 25 H (7-20) mg/dL Creatinine 0.60 (0.57-1.11) mg/dL Glucose 132 H (70-99) mg/dL Calcium 8.0 L (8.6-10.8) mg/dL Calcium panel 06/28/17 Range/Units 05:20 Calcium 8.0 L (8.6-10.8) mg/dL Phosphorus 3.3 (2.3-4.7) mg/dL Pituitary panel 06/28/17 Range/Units 05:20 Sodium 138 (136-145) mEq/L Potassium 3.9 (3.5-4.5) mEq/L Chloride 108 (98-109) mEq/L Carbon Dioxide 21 (19-29) mEq/L BUN 25 H (7-20) mg/dL Creatinine 0.60 (0.57-1.11) mg/dL Glucose 132 H (70-99) mg/dL Calcium 8.0 L (8.6-10.8) mg/dL Adrenal panel 06/28/17 Range/Units 05:20 Sodium 138 (136-145) mEq/L Potassium 3.9 (3.5-4.5) mEq/L Chloride 108 (98-109) mEq/L Carbon Dioxide 21 (19-29) mEq/L BUN 25 H (7-20) mg/dL Creatinine 0.60 (0.57-1.11) mg/dL Glucose 132 H (70-99) mg/dL Calcium 8.0 L (8.6-10.8) mg/dL - VTE Documentation of Mechanical Device: Intermittent pneumatic compression device Consult Discharge Plan - Plan Referrals: Sara Pfeiffer WELFARE SUPERVISOR [Primary Care Provider] - (Office will not make a followup appointment until we have a discharge order) Anna Martinez WELFARE SUPERVISOR [Advanced Practice Nurse] - (Cardiology office will call patient at home with follow up appointment)
[2017-06-28] MEDS ORDERED: 0.9 % Sodium Chloride 1,000 ML IVC SCH (10:45)
--- NOTE | 2017-06-28 11:32 | Internal Med Progress Note ---
<Baylee Rush - Last Filed: 06/28/17 11:29> Date of Encounter: 06/28/17 Time of Encounter: 11:30 - Assessment and plan (1) Leukocytosis Current Visit: Yes Status: Acute Assessment and plan: sepsis workup ordered per primary team. management per primary team. we would recommend broad spectrum antibiotic coverage until cultures return. Qualifiers: Leukocytosis type: unspecified Qualified Code(s): D72.829 - Elevated white blood cell count, unspecified (2) New onset a-fib Current Visit: Yes Status: Acute Assessment and plan: new onset Afib CHADS/VASC: 4 seen by cardiology, has since signed off. currently off cardizem gtt Echo 06/20/17 showed LVEF 65%, normal LV chamber size, wall thickness, f unction , mild ventricular diastolic dysfunciton, normal RV structure and function, mild LV diastolic dysfunction, normal RV structureand function, mild aortic sclerosis, mild tricuspid regurg, moderate pulmonary HTN. Plan: scheduled lopressor Q6H with holding parameters. per cardio recs, start PO cardizem when patient is no longer NPO, along with oral anticoag. (3) Anemia Current Visit: Yes Status: Chronic Assessment and plan: stable Qualifiers: Anemia type: other cause Other causes of anemia: chronic disease, other Qualified Code(s): D63.8 - Anemia in other chronic diseases classified elsewhere (4) Bacteremia Current Visit: Yes Status: Acute Assessment and plan: Blood culture 1/2 positive for pseudomonas Plan: on Levaquin. (5) Postoperative ileus Current Visit: Yes Status: Acute Assessment and plan: Per surgical service (6) DVT prophylaxis Current Visit: Yes Status: Acute Assessment and plan: therapeutic Lovenox for Afib. - Subjective Interval history: 77F evaluated at bedside. patient denies vomiting, fever, chills, chest pain, shortness of breath. she does report some nausea. she is not passing any flatus. she denies any further problems. - Constitutional Vitals: Temp Pulse Resp BP Pulse Ox 98.4 F 102 16 144/77 96 06/28/17 07:20 06/28/17 07:20 06/28/17 07:20 06/28/17 07:20 06/28/17 07:20 General appearance: Present: A&O X 3, pleasant, no acute distress, answers questions appropriately - Head Head exam: Present: atraumatic, normocephalic - Neck Neck exam general surgery: Present: supple, trachea midline - Respiratory Respiratory exam: Present: CTAB - Cardiovascular Cardiovascular exam: Present: tachycardia - GI/Abdominal GI/Abdominal exam: Present: distended, soft, tenderness Additional comments: soft, distended, surgical scars clean, dry, intact, left upper quadrant bruising present. - Extremities Exam Extremities exam: Absent: cyanotic, pedal edema - Neurological Exam Neurological exam: Present: alert, oriented X3, no focal deficits - Psychiatric Psychiatric exam: Present: normal affect, normal mood Internal Medicine: Result - Labs CBC & Chem 7: 06/28/17 05:20 06/28/17 05:20 Labs: Short CBC 06/28/17 Range/Units 05:20 WBC 19.8 H D (4.3-11.1) K/mcL Hgb 10.1 L (11.5-15.4) g/dL Hct 30.8 L (35.3-44.9) % Plt Count 464 H (140-400) K/mcL Neutrophils # 17.1 H (1.6-8.9) K/mcL BMP 06/28/17 05:20 Sodium 138 Potassium 3.9 Chloride 108 Carbon Dioxide 21 BUN 25 H Creatinine 0.60 Glucose 132 H Calcium 8.0 L - ABG Interpretation ABG results: PT/INR, D-dimer PT 14.4 Seconds (9.4-12.1) H 06/21/17 14:21 - Impressions Impressions Chest X-Ray 06/28/17 09:51 IMPRESSION: 1. Stable bibasilar lung infiltrates, likely related to atelectasis versus pneumonia. D/ / 06/28/2017 10:24:53 Dallin Haddad MD / [facility] Interpreting Provider: Dallin Haddad MD Abdomen X-Ray 06/28/17 10:27 IMPRESSION: 1. The orogastric tube tip and side port are noted in the gastric body. 2. Increased distention of small large bowel, concerning for an ileus versus bowel obstruction. D/ / Dallin Haddad MD / Dallin Haddad MD Interpreting Provider: Dallin Haddad MD - VTE Documentation of Mechanical Device: Intermittent pneumatic compression device Consult Discharge Plan - Plan Referrals: Sara Pfeiffer, ARTIFICIAL CHERRY MAKER [Primary Care Provider] - (Office will not make a followup appointment until we have a discharge order) Anna Martinez ARTIFICIAL CHERRY MAKER [Advanced Practice Nurse] - (Cardiology office will call patient at home with follow up appointment) <Stan Geiger - Last Filed: 06/28/17 12:34> Date of Encounter: 06/28/17 - Assessment and plan (1) Leukocytosis Current Visit: Yes Status: Acute Qualifiers: Leukocytosis type: unspecified Qualified Code(s): D72.829 - Elevated white blood cell count, unspecified (2) Atrial fibrillation Current Visit: Yes Status: Acute Assessment and plan: NSR/sinus tach at this time. Qualifiers: Atrial fibrillation type: paroxysmal Qualified Code(s): I48.0 - Paroxysmal atrial fibrillation (3) Anemia Current Visit: Yes Status: Chronic Qualifiers: Anemia type: other cause Other causes of anemia: chronic disease, other Qualified Code(s): D63.8 - Anemia in other chronic diseases classified elsewhere (4) Bacteremia Current Visit: Yes Status: Acute (5) Postoperative ileus Current Visit: Yes Status: Acute (6) Severe protein-calorie malnutrition Current Visit: Yes Status: Chronic - Constitutional Vitals: Temp Pulse Resp BP Pulse Ox 98.4 F 102 16 144/77 96 06/28/17 07:20 06/28/17 07:20 06/28/17 07:20 06/28/17 07:20 06/28/17 07:20 Internal Medicine: Result - Labs CBC & Chem 7: 06/28/17 05:20 06/28/17 05:20 Labs: Short CBC 06/28/17 Range/Units 05:20 WBC 19.8 H D (4.3-11.1) K/mcL Hgb 10.1 L (11.5-15.4) g/dL Hct 30.8 L (35.3-44.9) % Plt Count 464 H (140-400) K/mcL Neutrophils # 17.1 H (1.6-8.9) K/mcL BMP 06/28/17 05:20 Sodium 138 Potassium 3.9 Chloride 108 Carbon Dioxide 21 BUN 25 H Creatinine 0.60 Glucose 132 H Calcium 8.0 L - ABG Interpretation ABG results: PT/INR, D-dimer PT 14.4 Seconds (9.4-12.1) H 06/21/17 14:21 - Impressions Impressions Chest X-Ray 06/28/17 09:51 IMPRESSION: 1. Stable bibasilar lung infiltrates, likely related to atelectasis versus pneumonia. D/ / 06/28/2017 10:24:53 Dallin Haddad MD / [facility] Interpreting Provider: Dallin Haddad MD Abdomen X-Ray 06/28/17 10:27 IMPRESSION: 1. The orogastric tube tip and side port are noted in the gastric body. 2. Increased distention of small and large bowel, concerning for an ileus versus bowel obstruction. D/ / 06/28/2017 11:28:36 Dallin Haddad MD / [facility] Interpreting Provider: Dallin Haddad MD - Attending Attestation I examined this patient and my medical decision-making was reviewed with the Resident Physician on 06/28/17. I agree with the documented findings, disposition and treatment plan as described except to the extent set forth below. Ms Ny is currently admitted for post op ileus. She has developed significant leukocytosis today. No fever or chills. Had some bowel movement but now increased NG output. No new symptoms of cough or dysuria. Exam Alert. Comfortable Mucus membranes dry NG in place Heart tachy but regular Lungs diminished Abd distended I/P 1. Leukocytosis - Cultures ordered. Rec broad spectrum abx till returned. 2. Ileus - to return to ICU for neostigmine again. 3. Parox a fib - sinus now 4. Severe prot cami malnutrition Further diagnoses and plan as above.
[2017-06-28] MEDS ORDERED: Fluconazole 200 MG/100 ML 200 MG/100 ML BAG IVPB ONE ×2 (11:59→12:43)
[2017-06-28] MEDS ORDERED: D10% in Water 500 ML IVC PRN (12:43)
[2017-06-28] MEDS ORDERED: Artificial Tears SOLN 15 ML BOTTLE BOTH EYES PRN (12:43)
[2017-06-28] MEDS ORDERED: Chloraseptic Spray 177 ML BOTTLE MM PRN (12:43)
[2017-06-28] MEDS ORDERED: Clinimix E 5%-15% SOLUTION 2,000 ML with MVI, adult with vitamin K 10 ML IVC SCH ×3 (12:43→17:00)
[2017-06-28] MEDS ORDERED: Naloxone 0.4 MG/ML INJ IVP PRN (12:43)
[2017-06-28] MEDS ORDERED: *HR* HYDROmorphone (PF) 1 MG/ML SYRINGE IVP PRN (12:43)
[2017-06-28] MEDS ORDERED: Ondansetron 4 MG/2 ML VIAL IVP PRN (12:43)
[2017-06-28 12:46] LABS: Bilirubin,Urine Negative (Negative); Blood,Urine Negative (Negative); Clarity,Urine Clear (Clear); Color,Urine Yellow (Yellow); Glucose,Urine (UA) Normal (Normal); Ketones,Urine Negative (Negative); Leukocyte Esterase,Urine Negative (Negative); Nitrite,Urine Negative (Negative); Protein,Urine 30 mg/dL (Neg-Trace); Specific Gravity,Urine 1.028 (1.010-1.025); Urobilinogen,Urine Normal (Normal)
[2017-06-28 12:48] LABS: Bacteria,Urine None Seen per hpf (None-Few); Hyaline Casts,Urine None Seen per lpf (None-Few); Squamous Epithelial Cell,Urine Moderate per lpf (None-Few)
[2017-06-28] MEDS ORDERED: *HR* Atropine Sulfate 1 MG/10 ML SYRINGE ONE (14:09)
[2017-06-28] MEDS: Neostigmine Methylsulfate 3 MG in 0.9 % Sodium Chloride 250 ML IVC SCH (14:11)
[2017-06-28] MEDS ORDERED: Piperacillin/Tazobactam 3.375 GM/200 ML BAG IVPB SCH (16:00)
[2017-06-28] MEDS: Piperacillin/Tazobactam 3.375 GM/200 ML BAG IVPB SCH ×2 (18:34→23:31)
[2017-06-28] MEDS: Levofloxacin 750 MG/150 ML 750 MG/150 ML BAG IVPB SCH (23:32)
[2017-06-29] MEDS: Neostigmine Methylsulfate 3 MG in 0.9 % Sodium Chloride 250 ML IVC SCH (02:13)
[2017-06-29 04:49] LABS: Basophils # 0.1 K/mcL (0.0-0.2); Basophils % 0.5 %; Eosinophils # 0.1 K/mcL (0.0-0.6); Eosinophils % 0.6 %; Hematocrit 26.9 % (35.3-44.9); Hemoglobin 8.8 g/dL (11.5-15.4); Immature Granulocytes % 2.3 % (0-4); Lymphocytes # 1.3 K/mcL (0.6-4.6); Lymphocytes % 7.8 %; Mean Corpuscular HGB Conc 32.7 g/dL (31.6-35.5); Mean Corpuscular Hemoglobin 27.8 pg (28.0-33.3); Mean Corpuscular Volume 85.1 fL (83.0-100.0); Mean Platelet Volume 9.6 fL (9.4-12.4); Monocytes # 0.9 K/mcL (0.0-1.3); Monocytes % 5.5 %; Neutrophils # 13.5 K/mcL (1.6-8.9); Platelet Count 380 K/mcL (140-400); Red Blood Count 3.16 M/mcL (3.82-4.97); Red Cell Distribution Width 20.7 % (11.5-14.5); Segmented Neutrophils % 83.3 %
[2017-06-29 04:56] LABS: BUN/Creatinine Ratio 38 (6-26); Blood Urea Nitrogen 23 mg/dL (7-20); Calcium 7.8 mg/dL (8.6-10.8); Carbon Dioxide 28 mEq/L (19-29); Chloride 105 mEq/L (98-109); Glucose 147 mg/dL (70-99); Magnesium 1.7 mg/dL (1.6-2.6); Osmolality,Calculated 294 (280-300); Phosphorous 3.1 mg/dL (2.3-4.7); Potassium 3.5 mEq/L (3.5-4.5); Sodium 139 mEq/L (136-145); Triglycerides 116 mg/dL (< 150); eGFR For African Americans > 60 (> 60); eGFR For Non-African Americans > 60 (> 60)
[2017-06-29] MEDS ORDERED: Pantoprazole 40 MG VIAL IVP SCH (06:30)
[2017-06-29] MEDS: *HR* Metoprolol 5 MG/5 ML VIAL IVP SCH ×3 (06:30→18:01)
[2017-06-29] MEDS: Metoclopramide 10 MG/2 ML VIAL IVP SCH ×3 (06:30→18:00)
[2017-06-29] MEDS: *HR* Enoxaparin 80 MG/0.8 ML SYRINGE SQ SCH ×2 (06:30→19:28)
[2017-06-29] MEDS: Piperacillin/Tazobactam 3.375 GM/200 ML BAG IVPB SCH ×2 (08:30→17:30)
[2017-06-29] MEDS ORDERED: Vancomycin 1,000 MG in D5% in Water 250 ML IVPB SCH (09:00)
[2017-06-29] MEDS ORDERED: Fluconazole 100 MG/50 ML 100 MG/50 ML BAG IVPB SCH ×2 (09:00)
--- NOTE | 2017-06-29 10:02 | General Surgery Progress Note ---
Date of Encounter: 06/29/17 Time of Encounter: 09:59 - Assessment and Plan (1) Colonic mass Current Visit: Yes Status: Acute POD #12 s/p Robotic right hemicoloectomy 06/16/2017 (pathology 06/17/2017 pT3, pN0, pMn/a (stage IIA)) Noted PNA, new onset a-fib, and elevated TNI 06/21-03/03 (management per internal med/cardiology A) Postoperative ilues (recently in ICU for neostigmine (1 dose on 06/24) and was transferred out of ICU on 06/25 following a liquid BM); however, ileus remains unresolved and patient was therefor transferred back to ICU 06/28/17 for neostigmine administration (s/p 1 mg bolus and dose 2 or 3 (three mg) continuous over 12 hours BID (next dose due 1330 today) a) Noted gastric output per [employer] as follows 06/23: 3650 12: 1420 06/25: 0 recorded 06/26: 2150 06/27: 2100 (during am assessment noted that NG was in pylorus and pt had no NG output, repositioned the NG yielded the recorded output) 06/28: 3600 06/29: 900 ml since 0400 b) 900 ml liquid stool recorded since 06/28 (start of neostigmine) c) Imaging related to Ileus: -Small bowel follow-through 06/23 multiple dilated loops of small bowel up to 4.7 cm in diameter, . -KUB 06/24 no evidence of small bowel obstruction, multiple dilated loops of small bowel representing an ileus, -Acute abdominal series 06/25 dilated loops of small bowel contrast is present within the findings suggestive of an ileus, no free intraperitoneal air , NG tube projects at the level of pylorus -KUB 06/26 decreased small bowel distention -KUB 06/27 (appropriate placement of NG noted) -KUB 06/28 (prior to neostigmine) increased distention of small and large bowel, concerning foreign ileus versus small bowel obstruction B) Reports she is "feeling better." Denies abdominal pain or flatus. Abdominal distention adn tympany remain. There is some ecchymosis noted consistent with Lovenox injections otherwise atraumatic. Incisions are clean, dry, and intact. C) WBC is downtrending after Zosyn and Diflucan (19.8>>16.2); Unclear etiology cultures pending. Irregular rhythm, rate controlled (90 BPM), BP 156/75 Noted Levaquin IV daily 750 mg -day 9 14 (started 06/20) by internal med for PNA Zosyn day 2 of 10 Diflucan Day 2 of 7 Plan Ileus: 1. Continue neostigmine 2. Continue supportive care 3. Continue NG to LIWS 4. Continue NPO 5. Repeat Acute abdominal series today to assess progression 6. Replace lost fluid 0.9 (at 60 ml/hr) plus TPN (at 83.3 ml/hr) for total volume replacement of 140 ml/hr Monitor I/O Leukocytosis: 1. UA negative, no indication for culture 2. Continue Gómez for accurate I/O management (likely 24-48 hours duration) 3. Blood cultures x2 (one from PICC, one from peripheral); results pending 4. Continue IV ATBX (Levaquin), Diflucan, and Zosyn Replace electrolytes PRN; Repeat am labs Continue PICC and TPN continue G.I. and DVT prophylaxis (therapeutic Lovenox per Internal Med) continue comfort measures 1512: Plans for diagnostic lap in the next 2448 hours (2) Postoperative ileus Current Visit: Yes Status: Acute Significant distention remains. See plan above (3) Electrolyte imbalance Current Visit: Yes Status: Acute Replace electrolytes as indicated. (4) Anemia Current Visit: Yes Status: Chronic Acute on chronic anemia. Hgb8.8 (likely dilution) and no overt signs of bleeding noted. Closely monitor and Repeat AM labs. Qualifiers: Anemia type: other cause Other causes of anemia: chronic disease, other Qualified Code(s): D63.8 - Anemia in other chronic diseases classified elsewhere (5) New onset a-fib Current Visit: Yes Status: Acute Management per cardiology/Internal Med. Subjective Patient reports: no new complaints, voiding w/o difficulty (Per gómez catheter) , no flatus, bowel movement ( 775 ml documented 06/28; liquid. RN states the consistency is slightly thicker this am), afebrile Objective Vital Signs - Last 8 Hours Temp Pulse Resp BP Pulse Ox 06/29/17 08:30 86 19 141/63 95 06/29/17 07:40 87 20 128/68 97 06/29/17 07:30 98.6 F 06/29/17 06:00 82 15 131/63 96 06/29/17 05:00 90 24 113/74 96 06/29/17 04:52 97.4 F L 06/29/17 04:20 93 15 126/58 99 06/29/17 03:00 89 23 128/60 97 06/29/17 02:00 89 19 108/90 94 Intake and Output 06/28/17 06/29/17 06/29/17 23:59 07:59 15:59 Intake Total 200 / 200 603 / 603 Output Total 2775 / 2775 1225 / 1225 150 / 150 Balance -2575 / -2575 -622 / -622 -150 / -150 Intake: IV Fluids 200 / 200 603 / 603 Prostigmin 3 MG In 0.9 % Sodium 253 / 253 Chloride 250 ML @ 21.083 mls/ hr IVC CONT NUSRAT Rx#:[id number] Levaquin Premix 750mg/150 mL 150 / 150 750 mg In 150 ml @ 100 mls/hr IVPB Q24H NUSRAT Rx#:[id number] Zosyn Premix 3.375 GM/200 ML 3. 200 / 200 200 / 200 375 gm In 200 ml @ 50 mls/hr IVPB Q8H NUSRAT Rx#:[id number] Output: Stool 775 / 775 150 / 150 Catheter 550 / 550 325 / 325 Gastric Drainage 1450 / 1450 900 / 900 Other: Stool Size Small Small Stool Consistency liquid loose Stool Color Brown Brown Blood Tinged # Bowel Movements 3 Weight 68 kg Blood Glucose* 123 131 - General physical appearance no distress, no pain - Eyes normal ocular movement - ENT atraumatic, normocephalic - Neck Neck exam: trachea midline, no venous distension - Respiratory normal expansion, normal respiratory effort, clear to auscultation - Cardiovascular Cardiovascular exam: Present: irregular rhythm, murmurs - Abdomen Abdomen: Present: bowel sounds present (Hypoactive), non tender, distended ( Tympanic) Hernia: none - Incision Incision: Present: clean and dry, intact - Integumentary no rash - Neurologic normal sensation - Musculoskeletal normal posture - Psychiatric oriented to time, oriented to person, oriented to place, speech is normal, memory intact - Labs 06/29/17 04:34 06/29/17 04:34 Diabetes panel 06/29/17 Range/Units 04:34 Sodium 139 (136-145) mEq/L Potassium 3.5 (3.5-4.5) mEq/L Chloride 105 (98-109) mEq/L Carbon Dioxide 28 (19-29) mEq/L BUN 23 H (7-20) mg/dL Creatinine 0.61 (0.57-1.11) mg/dL Glucose 147 H (70-99) mg/dL Calcium 7.8 L (8.6-10.8) mg/dL Triglycerides 116 (< 150) mg/dL Calcium panel 06/29/17 Range/Units 04:34 Calcium 7.8 L (8.6-10.8) mg/dL Phosphorus 3.1 (2.3-4.7) mg/dL Pituitary panel 06/29/17 Range/Units 04:34 Sodium 139 (136-145) mEq/L Potassium 3.5 (3.5-4.5) mEq/L Chloride 105 (98-109) mEq/L Carbon Dioxide 28 (19-29) mEq/L BUN 23 H (7-20) mg/dL Creatinine 0.61 (0.57-1.11) mg/dL Glucose 147 H (70-99) mg/dL Calcium 7.8 L (8.6-10.8) mg/dL Adrenal panel 06/29/17 Range/Units 04:34 Sodium 139 (136-145) mEq/L Potassium 3.5 (3.5-4.5) mEq/L Chloride 105 (98-109) mEq/L Carbon Dioxide 28 (19-29) mEq/L BUN 23 H (7-20) mg/dL Creatinine 0.61 (0.57-1.11) mg/dL Glucose 147 H (70-99) mg/dL Calcium 7.8 L (8.6-10.8) mg/dL - VTE Documentation of Mechanical Device: Intermittent pneumatic compression device Consult Discharge Plan - Plan Referrals: Sara Pfeiffer, INSO[employer] HE[employer] STIFFENER [Primary Care Provider] - (Office will not make a followup appointment until we have a discharge order) Anna Martinez CNP [Advanced Practice Nurse] - (Cardiology office will call patient at home with follow up appointment)
[2017-06-29] MEDS: Vancomycin 1,000 MG in D5% in Water 250 ML IVPB SCH ×2 (10:21→21:31)
[2017-06-29] MEDS ORDERED: 0.9 % Sodium Chloride 1,000 ML IVC SCH (10:30)
--- NOTE | 2017-06-29 16:02 | Internal Med Progress Note ---
<Baylee Rush - Last Filed: 06/29/17 15:58> Date of Encounter: 06/29/17 Time of Encounter: 15:58 - Assessment and plan (1) Leukocytosis Current Visit: Yes Status: Acute Assessment and plan: sepsis workup ordered per primary team. CXR showed bibasilar lung infiltrates, atalectasis vs PNA WBC continuing to decrease UA: contaminated, no indication for culture Plan: broad spectrum ABX coverage until blood cultures finalized. continue vanc, zosyn, levaquin. Qualifiers: Leukocytosis type: unspecified Qualified Code(s): D72.829 - Elevated white blood cell count, unspecified (2) New onset a-fib Current Visit: Yes Status: Acute Assessment and plan: new onset Afib CHADS/VASC: 4 seen by cardiology, has since signed off. currently off cardizem gtt Echo 06/20/17 showed LVEF 65%, normal LV chamber size, wall thickness, f unction , mild ventricular diastolic dysfunciton, normal RV structure and function, mild LV diastolic dysfunction, normal RV structureand function, mild aortic sclerosis, mild tricuspid regurg, moderate pulmonary HTN. Plan: scheduled lopressor Q6H with holding parameters. per cardio recs, start PO cardizem when patient is no longer NPO, along with oral anticoag. (3) Anemia Current Visit: Yes Status: Chronic Assessment and plan: drop in Hg from yesterday. continue to monitor and transfuse as necessary per primary team. Qualifiers: Anemia type: other cause Other causes of anemia: chronic disease, other Qualified Code(s): D63.8 - Anemia in other chronic diseases classified elsewhere (4) Bacteremia Current Visit: Yes Status: Acute Assessment and plan: Blood culture 1/2 positive for pseudomonas repeat bood cultures pending Plan: broad spectrum coverage until blood cultures final. (5) Postoperative ileus Current Visit: Yes Status: Acute Assessment and plan: Per surgical service (6) DVT prophylaxis Current Visit: Yes Status: Acute Assessment and plan: therapeutic Lovenox for Afib. - Subjective Interval history: 77F evaluated at bedside. patient denies nausesa, vomiting, fever, chills, chest pain, shortness of breath. she denies any other problems today. - Constitutional Vitals: Temp Pulse Resp BP Pulse Ox 97.3 F L 87 19 148/72 100 06/29/17 11:38 06/29/17 14:30 06/29/17 14:30 06/29/17 14:30 06/29/17 14:30 General appearance: Present: A&O X 3, pleasant, no acute distress, answers questions appropriately - Head Head exam: Present: atraumatic, normocephalic - Neck Neck exam general surgery: Present: supple, trachea midline - Respiratory Respiratory exam: Present: CTAB - GI/Abdominal GI/Abdominal exam: Present: diminished bowel sounds, distended, soft Additional comments: left upper quadrant bruising surgical scars clean, dry, intact - Extremities Exam Extremities exam: Absent: cyanotic, pedal edema - Neurological Exam Neurological exam: Present: alert, oriented X3, no focal deficits - Psychiatric Psychiatric exam: Present: normal affect, normal mood Internal Medicine: Result - Labs CBC & Chem 7: 06/29/17 04:34 06/29/17 04:34 Labs: Short CBC 06/29/17 Range/Units 04:34 WBC 16.2 H (4.3-11.1) K/mcL Hgb 8.8 L (11.5-15.4) g/dL Hct 26.9 L (35.3-44.9) % Plt Count 380 (140-400) K/mcL Neutrophils # 13.5 H (1.6-8.9) K/mcL BMP 06/29/17 04:34 Sodium 139 Potassium 3.5 Chloride 105 Carbon Dioxide 28 BUN 23 H Creatinine 0.61 Glucose 147 H Calcium 7.8 L - ABG Interpretation ABG results: PT/INR, D-dimer PT 14.4 Seconds (9.4-12.1) H 06/21/17 14:21 - Impressions Impressions Abdomen X-Ray 06/29/17 10:27 IMPRESSION: Nasogastric tube in unchanged position. No significant change in dilated small bowel loops in the central abdomen, consistent with ongoing ileus. D/ / 06/29/2017 11:14:23 Pedro Sanchez MD / [email or web address] Interpreting Provider: Pedro Sanchez MD - VTE Documentation of Mechanical Device: Intermittent pneumatic compression device Consult Discharge Plan - Plan Referrals: Sara Pfeiffer, ENVIRONMENTAL COORDINATOR [Primary Care Provider] - (Office will not make a followup appointment until we have a discharge order) Anna Martinez, ENVIRONMENTAL COORDINATOR [Advanced Practice Nurse] - (Cardiology office will call patient at home with follow up appointment) <Stan Geiger - Last Filed: 06/29/17 18:21> Date of Encounter: 06/29/17 - Assessment and plan (1) Leukocytosis Current Visit: Yes Status: Acute Qualifiers: Leukocytosis type: unspecified Qualified Code(s): D72.829 - Elevated white blood cell count, unspecified (2) Atrial fibrillation Current Visit: Yes Status: Acute Qualifiers: Atrial fibrillation type: paroxysmal Qualified Code(s): I48.0 - Paroxysmal atrial fibrillation (3) Anemia Current Visit: Yes Status: Chronic Qualifiers: Anemia type: other cause Other causes of anemia: chronic disease, other Qualified Code(s): D63.8 - Anemia in other chronic diseases classified elsewhere (4) Bacteremia Current Visit: Yes Status: Acute (5) Postoperative ileus Current Visit: Yes Status: Acute (6) Severe protein-calorie malnutrition Current Visit: Yes Status: Chronic - Constitutional Vitals: Temp Pulse Resp BP Pulse Ox 97.3 F L 88 20 152/73 99 06/29/17 11:38 06/29/17 15:30 06/29/17 15:30 06/29/17 15:30 06/29/17 15:30 Internal Medicine: Result - Labs CBC & Chem 7: 06/29/17 04:34 06/29/17 04:34 Labs: Short CBC 06/29/17 Range/Units 04:34 WBC 16.2 H (4.3-11.1) K/mcL Hgb 8.8 L (11.5-15.4) g/dL Hct 26.9 L (35.3-44.9) % Plt Count 380 (140-400) K/mcL Neutrophils # 13.5 H (1.6-8.9) K/mcL BMP 06/29/17 04:34 Sodium 139 Potassium 3.5 Chloride 105 Carbon Dioxide 28 BUN 23 H Creatinine 0.61 Glucose 147 H Calcium 7.8 L - ABG Interpretation ABG results: PT/INR, D-dimer PT 14.4 Seconds (9.4-12.1) H 06/21/17 14:21 - Impressions Impressions Abdomen X-Ray 06/29/17 10:27 IMPRESSION: Nasogastric tube in unchanged position. No significant change in dilated small bowel loops in the central abdomen, consistent with ongoing ileus. D/ / 06/29/2017 11:14:23 Pedro Sanchez MD / [email or web address] Interpreting Provider: Pedro Sanchez MD - Attending Attestation I examined this patient and my medical decision-making was reviewed with the Resident Physician on 06/29/17. I agree with the documented findings, disposition and treatment plan as described except to the extent set forth below. Ms Romeo is currently admitted for colon mass s/p resection. She has persistent ileus. Ms Rmoeo continues to have GI issues. No fever or chills. WBC somewhat improved. Cultures pending. On broad spectrum abx at this time. Exam Alert Comfortable NG in place Heart reg I/P 1. Leukocytosis 2. Ileus Continue current management. Anticipate we will sign off tomorrow if cx negative.
--- NOTE | 2017-06-29 16:11 | Anesthesia Evaluation PreOp ---
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 DIRECTOR History: Denies Any Significant HX Other Medical History: GERD, Other (Breast CA) Anesthesia History: No Prior Anesthetic Complications, Past Anesthesia (s/p hemicolectomy, colon mass) : No Alcohol Use: none Drug use: none Medications and Allergies Lansoprazole [Prevacid] 30 mg PO DAILY 12/02/15 [History] Multivitamin [Multivitamins] 1 cap PO DAILY 12/02/15 [History] Aspirin [Lo-Dose Aspirin EC] 81 mg PO DAILY 04/02/16 [History] Cholecalciferol (D-3) [Vitamin D] 5,000 unit PO DAILY 04/02/16 [History] Calcium Carb/Vitamin D3/Vit K1 [Calcium + D Soft Chewable Tab] 2 each PO DAILY 11/09/16 [History] 3 Allergy/AdvReac Type Severity Reaction Status Date / Time "pain medications" AdvReac See Uncoded 06/16/17 08:04 Comments/ VOMITING - Meds/Allergy Pre-op Review Medications Reviewed: Yes Allergies Reviewed: Yes If Beta Blockers taken, Date/Time (Last Dose taken): 06/29/2017 @ 12:33 Anesthesia Results - Labs 06/29/17 04:34 06/29/17 04:34 echocardiogram Impressions: LVEF 65%. Normal LV chamber size, wall thickness and function. Mild left ventricular diastolic dysfunction. Normal right ventricular structure and function. Mild aortic sclerosis suggested by Doppler. Mean gradient 10 mmHg. Mild tricuspid regurgitation. Moderate pulmonary hypertension. Negative agitated saline study for intra-cardiac shunting. - Imaging EKG: report reviewed (ATRIAL FIBRILLATION WITH RAPID VENTRICULAR RESPONSE NONSPECIFIC ST & T-WAVE ABNORMALITY) Anesthesia Exam O2 Sat Height 1.72 m Weight 68 kg O2 Sat by Pulse Oximetry 99 O2 Sat by Pulse Oximetry 100 O2 Sat by Pulse Oximetry 98 O2 Sat by Pulse Oximetry 96 O2 Sat by Pulse Oximetry 98 O2 Sat by Pulse Oximetry 98 O2 Sat by Pulse Oximetry 94 O2 Sat by Pulse Oximetry 95 O2 Sat by Pulse Oximetry 97 O2 Sat by Pulse Oximetry 96 O2 Sat by Pulse Oximetry 96 O2 Sat by Pulse Oximetry 99 O2 Sat by Pulse Oximetry 97 O2 Sat by Pulse Oximetry 94 O2 Sat by Pulse Oximetry 95 O2 Sat by Pulse Oximetry 99 O2 Sat by Pulse Oximetry 97 O2 Sat by Pulse Oximetry 98 O2 Sat by Pulse Oximetry 97 O2 Sat by Pulse Oximetry 95 O2 Sat by Pulse Oximetry 96 O2 Sat by Pulse Oximetry 91 O2 Sat by Pulse Oximetry 98 Vital Signs Temp Pulse Resp BP Pulse Ox 98.4 F 92 16 147/87 99 06/16/17 07:46 06/16/17 07:46 06/16/17 07:46 06/16/17 07:46 06/16/17 07:46 Vital Signs/O2 Sat, Most Current Temp Pulse Resp BP Pulse Ox 97.3 F L 88 20 152/73 99 06/29/17 11:38 06/29/17 15:30 06/29/17 15:30 06/29/17 15:30 06/29/17 15:30 - HEENT Pupil (Motor): Pupils equal, EOMI Mallampati: II Teeth: Edentulous Oral Opening: Greater than 3 - PROJECT MANAGEMENT DIRECTOR LOC: Oriented PROJECT MANAGEMENT DIRECTOR Motor: Normal RUE, Normal LUE, Normal RLE, Normal LLE, Normal Face PROJECT MANAGEMENT DIRECTOR Sensory: Normal: RUE, LUE, RLE, LLE, Face - Cardiac Rhythm: Regular Murmur: None JVD: No Carotid Bruit: No - Pulmonary Breath Sounds: bilateral Clear Respiratory Effort: Symmetrical Anesthesia Assess/Plan ASA Score: 3 Modified Malinda Scale for Level of Consciousness: Cooperative, oriented, and tranquil Anesthetic Plan: General Autologous Blood: Yes Monitoring Plan: Standard Monitors Recovery Plan: PACU
[2017-06-29] MEDS ORDERED: Clinimix E 5%-15% SOLUTION 2,000 ML with MVI, adult with vitamin K 10 ML IVC SCH (17:00)
[2017-06-29] MEDS: dilTIAZem HCl 100 MG in D5% in Water 50 ML IVC SCH (20:40)
[2017-06-29] MEDS: Milk and Molasses Enema 200 ML RC SCH (20:41)
[2017-06-29] MEDS ORDERED: Lidocaine -MPF 4% 5 ML AMPUL ONE (22:56)
[2017-06-29] MEDS ORDERED: *HR* Rocuronium Bromide 50 MG/5 ML VIAL ONE (22:56)
[2017-06-29] MEDS ORDERED: Lidocaine -MPF 2% 2 ML VIAL ONE (22:56)
[2017-06-29] MEDS ORDERED: *HR* Etomidate 40 MG/20 ML VIAL IVP ONE (22:56)
[2017-06-29] MEDS ORDERED: *HR* FentaNYL (PF) 100 MCG/2 ML VIAL ONE (22:56)
[2017-06-29] MEDS ORDERED: *HR* Succinylcholine 200 MG/10 ML VIAL IVP ONE (22:56)
[2017-06-29] MEDS ORDERED: *HR* Propofol 200 MG/20 ML VIAL IVP ONE (22:57)
[2017-06-29] MEDS ORDERED: Acetaminophen IV 1,000 MG/100 ML INFUS..BTL ONE (23:14)
[2017-06-30] MEDS: Levofloxacin 750 MG/150 ML 750 MG/150 ML BAG IVPB SCH (00:07)
[2017-06-30] MEDS ORDERED: Neostigmine Methylsulfate 3 MG/3 ML SYRINGE ONE (00:26)
[2017-06-30] MEDS ORDERED: Dexamethasone 4 MG/ML VIAL ONE (00:26)
[2017-06-30] MEDS ORDERED: *HR* Magnesium Sulfate 1 GM/2 ML VIAL ONE (00:35)
[2017-06-30] MEDS ORDERED: Ketorolac 30 MG/ML VIAL ONE (00:36)
[2017-06-30] MEDS ORDERED: Naloxone 0.4 MG/ML INJ IVP PRN (01:35)
[2017-06-30] MEDS ORDERED: Clinimix E 5%-15% SOLUTION 2,000 ML with MVI, adult with vitamin K 10 ML IVC SCH ×2 (01:35→17:00)
[2017-06-30] MEDS ORDERED: Ondansetron 4 MG/2 ML VIAL IVP PRN (01:35)
[2017-06-30] MEDS ORDERED: 0.9 % Sodium Chloride 1,000 ML IVC SCH (01:35)
[2017-06-30] MEDS ORDERED: D10% in Water 500 ML IVC PRN (01:35)
[2017-06-30] MEDS ORDERED: Chloraseptic Spray 177 ML BOTTLE MM PRN (01:35)
[2017-06-30] MEDS: *HR* HYDROmorphone (PF) 1 MG/ML SYRINGE IVP PRN (02:30)
[2017-06-30] MEDS: Piperacillin/Tazobactam 3.375 GM/200 ML BAG IVPB SCH ×3 (02:41→16:31)
[2017-06-30] MEDS: Metoclopramide 10 MG/2 ML VIAL IVP SCH ×4 (02:41→17:33)
[2017-06-30] MEDS: *HR* Metoprolol 5 MG/5 ML VIAL IVP SCH ×4 (02:41→19:37)
--- NOTE | 2017-06-30 03:19 | Anesthesia Evaluation Post Op ---
Date of Encounter: 06/30/17 Time of Encounter: 01:30 - Vital Signs Vital Signs: Vital Signs Temp Pulse Resp BP Pulse Ox 06/30/17 02:43 97.5 F L 90 14 129/73 96 06/30/17 02:13 97.3 F L 96 20 135/76 95 06/30/17 01:43 97.4 F L 102 24 118/74 96 06/30/17 01:24 98.1 F 108 16 135/73 94 06/30/17 01:14 98.4 F 110 16 140/72 94 06/30/17 01:04 118 16 146/74 97 06/30/17 00:54 99.0 F 126 16 141/73 96 06/29/17 21:05 98.5 F 89 14 130/72 97 06/29/17 18:30 83 20 147/70 98 06/29/17 17:30 90 19 146/74 99 06/29/17 16:30 98.6 F 89 19 149/88 98 06/29/17 15:30 88 20 152/73 99 06/29/17 14:30 87 19 148/72 100 06/29/17 13:30 85 20 155/79 98 06/29/17 12:30 92 19 149/82 96 06/29/17 11:38 97.3 F L 06/29/17 11:30 98 18 141/74 98 06/29/17 10:30 98 20 150/72 98 06/29/17 09:30 90 19 156/75 94 06/29/17 08:30 86 19 141/63 95 06/29/17 07:40 87 20 128/68 97 06/29/17 07:30 98.6 F 06/29/17 06:00 82 15 131/63 96 06/29/17 05:00 90 24 113/74 96 06/29/17 04:52 97.4 F L 06/29/17 04:20 93 15 126/58 99 - Lungs Lungs: Clear Ascult./Percussion - Airway Airway: Non-obstructed - Cardiovascular Regular Rate - Mental Status Mental Status: Alert & Oriented, Answers Appropriately - Pain Pain Scale: 0 Pain Scale used: Numeric (1 - 10) - Nausea Vomiting Nausea Vomiting: Not Present - Hydration Hydration: NPO, Has not voided - Discharge PostOp Status: Transfer Patient to floor Anes Supervising Prov Stmt: Pt seen/evaluated, VSS and pt has met criteria for discharge to floor. Mo Condon MD
[2017-06-30 05:13] LABS: BUN/Creatinine Ratio 37 (6-26); Blood Urea Nitrogen 22 mg/dL (7-20); Calcium 7.2 mg/dL (8.6-10.8); Carbon Dioxide 24 mEq/L (19-29); Chloride 106 mEq/L (98-109); Glucose 148 mg/dL (70-99); Magnesium 2.1 mg/dL (1.6-2.6); Osmolality,Calculated 288 (280-300); Potassium 3.2 mEq/L (3.5-4.5); Sodium 136 mEq/L (136-145); eGFR For African Americans > 60 (> 60); eGFR For Non-African Americans > 60 (> 60)
[2017-06-30] MEDS: Pantoprazole 40 MG VIAL IVP SCH (06:20)
[2017-06-30] MEDS: *HR* Enoxaparin 80 MG/0.8 ML SYRINGE SQ SCH ×2 (06:21→17:33)
[2017-06-30] MEDS ORDERED: Aminoglycoside Consult 1 EACH MC ONE (08:14)
[2017-06-30] MEDS ORDERED: Fluconazole 100 MG/50 ML 100 MG/50 ML BAG IVPB SCH (09:00)
[2017-06-30] MEDS ORDERED: Vancomycin 1,000 MG in D5% in Water 250 ML IVPB SCH (09:00)
[2017-06-30] MEDS ORDERED: Potassium Chloride 40 MEQ, Lidocaine 1% 2 ML in D5% in Water 500 ML IVPB ONE (09:16)
--- NOTE | 2017-06-30 09:44 | General Surgery Progress Note ---
Date of Encounter: 06/30/17 Time of Encounter: 09:00 - Assessment and Plan (1) Colonic mass Current Visit: Yes Status: Acute POD #13 s/p Robotic right hemicoloectomy 06/16/2017 (pathology 06/17/2017 pT3, pN0, pMn/a (stage IIA)) POD #1 diagnsotic lap A) Postoperative ileus was treated in ICU for neostigmine (1 dose on 06/24) and ( s/p 1 mg bolus and 3 doses of (three mg) continuous over 12 hours BID without significant improvement and the decision was therefore made to return to the OR where she underwent a diagnostic lap with repair of an omental/incisional hernia and small bowel tacking with almost immediate improvement in the tone of her small bowel. NG was d/c'd during recovery. She denies nausea, vomiting, flatus, and endorses that her abdomen feels sore and significantly different than preoperatively. a) Noted gastric output per [facility] as follows 06/23: 3650 06/24: 1420 06/25: 0 recorded 06/26: 2150 06/27: 2100 (during am assessment noted that NG was in pylorus and pt had no NG output, repositioned the NG yielded the recorded output) 06/28: 3600 06/29: 900 ml since 0400 06/30: NG d/c'd during surgical procedure b) No BM or flatus reported c) Imaging related to Ileus: -Small bowel follow-through 06/23 multiple dilated loops of small bowel up to 4.7 cm in diameter, . -KUB 06/24 no evidence of small bowel obstruction, multiple dilated loops of small bowel representing an ileus, -Acute abdominal series 06/25 dilated loops of small bowel contrast is present within the findings suggestive of an ileus, no free intraperitoneal air , NG tube projects at the level of pylorus -KUB 06/26 decreased small bowel distention -KUB 06/27 (appropriate placement of NG noted) -KUB 06/28 (prior to neostigmine) increased distention of small and large bowel, concerning foreign ileus versus small bowel obstruction -No indication for repeat imaging following surgical procedure 06/29/2017 C) CBC pending for today. Noted Levaquin IV daily 750 mg -day (started 06/20) by internal med for PNA Zosyn day 3 of 10 Diflucan Day 3 of 7 Plan Ileus: 1. Await return of bowel function; continue Reglan 10 mg Q6H 2. Continue supportive care 3. May have 1/2 cup of ice 4. PT/OT following for mobilization in DC planning; ambulate at least TID. May clamp IV for ambulation. 5. DC fully catheter. 6. Toto IV fluid TPN goal 7. Replace electrolytes PRN; Repeat am labs 8. Continue PICC and TPN 9. continue G.I. and DVT prophylaxis (therapeutic Lovenox per Internal Med) 10. continue comfort measures Leukocytosis: 1. UA negative, no indication for culture 2. CBC pending 3. Blood cultures x2 (one from PICC, one from peripheral); results pending negative to date 4. Continue IV ATBX (Levaquin), Diflucan, and Zosyn Noted PNA, new onset a-fib, and elevated TNI 06/21-03/03 (management per internal med/cardiology hospitalist service has signed off at that time. Their DC recommendations are noted below. Recommendations: Stop Vancomycin today At discharge: D/C Lovenox Cardizem 120mg PO daily Eliquis 5mg PO BID - when OK to be on anticoagulant. Will need pharmacy to [place] check then (I put these scripts in ambulatory orders). (2) Postoperative ileus Current Visit: Yes Status: Acute See plan above (3) Electrolyte imbalance Current Visit: Yes Status: Acute Replace electrolytes as indicated. (4) Anemia Current Visit: Yes Status: Chronic No overt signs of bleeding noted. CBC pending. Closely monitor and Repeat AM labs. Qualifiers: Anemia type: other cause Other causes of anemia: chronic disease, other Qualified Code(s): D63.8 - Anemia in other chronic diseases classified elsewhere (5) New onset a-fib Current Visit: Yes Status: Acute Management per cardiology/Internal Med. Noted PNA, new onset a-fib, and elevated TNI 06/21-03/03 (management per internal med/cardiology hospitalist service has signed off at that time. Their DC recommendations are noted below. Recommendations: Stop Vancomycin today At discharge: D/C Lovenox Cardizem 120mg PO daily Eliquis 5mg PO BID - when OK to be on anticoagulant. Will need pharmacy to [place] check then (I put these scripts in ambulatory orders). Subjective Patient reports: no new complaints, feels better, still having pain, pain is less, no flatus, no bowel movement, afebrile Narrative: Jane denies nausea or vomiting. She states her stomach feels "better, just sore from the surgery." She denies passing gas or bowel movements. Objective Vital Signs - Last 8 Hours Temp Pulse Resp BP Pulse Ox 06/30/17 07:33 98.1 F 98 16 102/65 96 06/30/17 04:47 97.5 F L 99 16 132/72 97 06/30/17 04:42 97.0 F L 90 14 125/74 99 06/30/17 03:43 97.2 F L 94 14 104/69 97 06/30/17 02:43 97.5 F L 90 14 129/73 96 06/30/17 02:13 97.3 F L 96 20 135/76 95 06/30/17 01:43 97.4 F L 102 24 118/74 96 Intake and Output 06/29/17 06/30/17 06/30/17 23:59 07:59 15:59 Intake Total 1900 / 1900 Output Total 0 / 0 252 / 252 Balance 1900 / 1900 -252 / -252 Intake: IV Fluids 1900 / 1900 Clinimix E 5%-15% SOLUTION 2, 1900 / 1900 000 ML @ 83.3 mls/hr IVC .Q24H [facility] with M.v.i. Adult 10 ml Rx# :[id number] Oral 0 / 0 Free Water Intake Amount 0 / 0 Output: Urine 0 / 0 Estimated Blood Loss 2 / 2 Catheter 250 / 250 Gastric Drainage 0 / 0 Other: Weight 68.7 kg Blood Glucose* 109 Patient Weight 06/30/17 23:59 Weight 68.7 kg - General physical appearance no distress, moderate pain - Eyes normal ocular movement - ENT atraumatic, normocephalic - Neck Neck exam: trachea midline, no venous distension - Respiratory other (Decreased bilateral breath sounds) - Cardiovascular Cardiovascular exam: Present: RRR, murmurs - Abdomen Abdomen: Present: soft, tender (Expected postoperative;). Absent: bowel sounds present (Faint and hypoactive at best) Hernia: none - Incision Incision: Present: clean and dry, intact - Integumentary no abnormal pigmentation - Neurologic normal sensation - Musculoskeletal normal posture - Psychiatric oriented to time, oriented to person, oriented to place, speech is normal, memory intact - Labs 06/30/17 12:25 06/30/17 03:42 Diabetes panel 06/30/17 Range/Units 03:42 Sodium 136 (136-145) mEq/L Potassium 3.2 L (3.5-4.5) mEq/L Chloride 106 (98-109) mEq/L Carbon Dioxide 24 (19-29) mEq/L BUN 22 H (7-20) mg/dL Creatinine 0.60 (0.57-1.11) mg/dL Glucose 148 H (70-99) mg/dL Calcium 7.2 L (8.6-10.8) mg/dL Calcium panel 06/30/17 Range/Units 03:42 Calcium 7.2 L (8.6-10.8) mg/dL Phosphorus 3.0 (2.3-4.7) mg/dL Pituitary panel 06/30/17 Range/Units 03:42 Sodium 136 (136-145) mEq/L Potassium 3.2 L (3.5-4.5) mEq/L Chloride 106 (98-109) mEq/L Carbon Dioxide 24 (19-29) mEq/L BUN 22 H (7-20) mg/dL Creatinine 0.60 (0.57-1.11) mg/dL Glucose 148 H (70-99) mg/dL Calcium 7.2 L (8.6-10.8) mg/dL Adrenal panel 06/30/17 Range/Units 03:42 Sodium 136 (136-145) mEq/L Potassium 3.2 L (3.5-4.5) mEq/L Chloride 106 (98-109) mEq/L Carbon Dioxide 24 (19-29) mEq/L BUN 22 H (7-20) mg/dL Creatinine 0.60 (0.57-1.11) mg/dL Glucose 148 H (70-99) mg/dL Calcium 7.2 L (8.6-10.8) mg/dL - VTE Documentation of Mechanical Device: Intermittent pneumatic compression device Consult Discharge Plan - Plan Referrals: Sara Pfeiffer GENERAL MACHINIST [Primary Care Provider] - (Office will not make a followup appointment until we have a discharge order) Anna Martinez CNP [Advanced Practice Nurse] - (Cardiology office will call patient at home with follow up appointment) Prescriptions: Apixaban [Eliquis] 5 mg PO BID #60 tablet Diltiazem CD (24hr) [Cardizem CD] 120 mg PO DAILY #30 cap.er.24h
--- NOTE | 2017-06-30 10:56 | Event Note ---
Date of Encounter: 06/30/17 Time of Encounter: 10:48 Ms Romeo returned to OR yesterday. Cultures have all been negative to date. Will sign off. Please call us if need anything. Recommendations: Stop Vancomycin today At discharge: D/C Lovenox Cardizem 120mg PO daily Eliquis 5mg PO BID - when OK to be on anticoagulant. Will need pharmacy to [place] check then (I put these scripts in ambulatory orders). Let us know if we need to help with this at discharge. Thanks so much!
[2017-06-30 12:37] LABS: Hematocrit 28.5 % (35.3-44.9); Hemoglobin 9.1 g/dL (11.5-15.4); Mean Corpuscular HGB Conc 31.9 g/dL (31.6-35.5); Mean Corpuscular Hemoglobin 27.7 pg (28.0-33.3); Mean Corpuscular Volume 86.6 fL (83.0-100.0); Mean Platelet Volume 9.7 fL (9.4-12.4); Platelet Count 418 K/mcL (140-400); Red Blood Count 3.29 M/mcL (3.82-4.97); Red Cell Distribution Width 20.3 % (11.5-14.5)
[2017-06-30 13:24] LABS: Lymphocytes # 0.5 K/mcL (0.6-4.6); Neutrophils # 11.3 K/mcL (1.6-8.9)
[2017-06-30 13:25] LABS: Anisocytosis 2+ (Not Present); Platelet Clumps Few (Not Present); Polychromasia 1+ (Not Present)
[2017-06-30] MEDS ORDERED: Levofloxacin 750 MG/150 ML 750 MG/150 ML BAG IVPB SCH (22:00)
[2017-07-01] MEDS: Metoclopramide 10 MG/2 ML VIAL IVP SCH ×4 (00:09→17:30)
[2017-07-01] MEDS: Piperacillin/Tazobactam 3.375 GM/200 ML BAG IVPB SCH ×2 (00:10→08:55)
[2017-07-01] MEDS: *HR* Metoprolol 5 MG/5 ML VIAL IVP SCH ×4 (00:10→19:04)
[2017-07-01 06:06] LABS: BUN/Creatinine Ratio 40 (6-26); Blood Urea Nitrogen 26 mg/dL (7-20); Calcium 7.1 mg/dL (8.6-10.8); Carbon Dioxide 21 mEq/L (19-29); Chloride 109 mEq/L (98-109); Glucose 91 mg/dL (70-99); Osmolality,Calculated 286 (280-300); Phosphorous 2.5 mg/dL (2.3-4.7); Potassium 3.5 mEq/L (3.5-4.5); Sodium 136 mEq/L (136-145); eGFR For African Americans > 60 (> 60); eGFR For Non-African Americans > 60 (> 60)
[2017-07-01 06:15] LABS: Basophils % 0.3 %; Eosinophils # 0.1 K/mcL (0.0-0.6); Eosinophils % 0.5 %; Hematocrit 23.9 % (35.3-44.9); Hemoglobin 7.6 g/dL (11.5-15.4); Lymphocytes % 9.3 %; Mean Corpuscular HGB Conc 31.8 g/dL (31.6-35.5); Mean Corpuscular Hemoglobin 27.4 pg (28.0-33.3); Mean Corpuscular Volume 86.3 fL (83.0-100.0); Mean Platelet Volume 10.2 fL (9.4-12.4); Monocytes # 0.6 K/mcL (0.0-1.3); Monocytes % 5.8 %; Neutrophils # 9.2 K/mcL (1.6-8.9); Platelet Count 417 K/mcL (140-400); Red Blood Count 2.77 M/mcL (3.82-4.97); Red Cell Distribution Width 20.2 % (11.5-14.5); Segmented Neutrophils % 83.1 %
[2017-07-01] MEDS: Pantoprazole 40 MG VIAL IVP SCH (06:28)
[2017-07-01] MEDS: *HR* Enoxaparin 80 MG/0.8 ML SYRINGE SQ SCH ×2 (06:28→17:29)
[2017-07-01] MEDS: *HR* HYDROmorphone (PF) 1 MG/ML SYRINGE IVP PRN ×2 (08:56→15:26)
--- NOTE | 2017-07-01 09:11 | General Surgery Progress Note ---
Date of Encounter: 07/01/17 Time of Encounter: 09:00 - Assessment and Plan (1) Colonic mass Current Visit: Yes Status: Acute POD #15 ascending colon resection with Dr. 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 CEA 3.1 Bowel rest- ice chips sparingly PICC and continue TPN therapy Operator Automated Process consult for management of TPN Continue diflucan daily Supportive care and pain control IS every 1 hour while awake Ambulate hallways TID with assistance PT/OT daily for mobilization PPI therapy daily Repeat am labs (2) Postoperative ileus Current Visit: Yes Status: Acute POD #2 diagnsotic lap with EDWINA and small bowel pexy Bowel rest except ice chips only Await return of bowel function PICC and continue TPN Ambulate hallways TID with assistance (3) GERD (gastroesophageal reflux disease) Current Visit: Yes Status: Chronic PPI therapy daily Qualifiers: Esophagitis presence: esophagitis presence not specified Qualified Code(s) : K21.9 - Gastro-esophageal reflux disease without esophagitis (4) New onset a-fib Current Visit: Yes Status: Acute Recommendations per hospitalist at discharge: D/C Lovenox Cardizem 120mg PO daily Eliquis 5mg PO BID - when OK to be on anticoagulant. Will need pharmacy to [place] check then (I put these scripts in ambulatory orders). (5) Electrolyte imbalance Current Visit: Yes Status: Resolved Labs are stable at this time (6) Moderate protein-calorie malnutrition Current Visit: Yes Status: Acute Continue TPN Operator Automated Process for management of TPN (7) Anemia Current Visit: Yes Status: Chronic Hgb- 8.8>9.1>7.8 Continue to monitor Vital signs stable Patient asymptomatic Repeat am labs Qualifiers: Anemia type: other cause Other causes of anemia: chronic disease, other Qualified Code(s): D63.8 - Anemia in other chronic diseases classified elsewhere (8) Bacteremia Current Visit: Yes Status: Acute Second set of blood cultures negative D/C Zosyn and levaquin (9) DVT prophylaxis Current Visit: Yes Status: Acute EPCDs to bilateral lower extremities for DVT prophylaxis Ambulate hallways TID with assistance Therapetic lovenox for Atrial fibrillation Subjective Patient reports: no new complaints, feels better, voiding w/o difficulty, flatus (1 episode of flatus last night, denies flatus today), no bowel movement , afebrile, other (Patient up walking in her room this morning with assistance) Objective Vital Signs - Last 8 Hours Temp Pulse Resp BP Pulse Ox 07/01/17 07:47 98.3 F 91 14 105/66 90 07/01/17 04:02 98.0 F 108 14 108/68 97 Intake and Output 06/30/17 07/01/17 07/01/17 23:59 07:59 15:59 Intake Total 1012 / 1012 1350 / 1350 Output Total 300 / 300 300 / 300 Balance 712 / 712 1050 / 1050 Intake: IV Fluids 772 / 772 1350 / 1350 Diflucan 100 MG/50 ML 100 mg In 50 / 50 50 ml @ 50 mls/hr IVPB DAILY [facility] Rx#:[id number] Levaquin Premix 750mg/150 mL 150 / 150 750 mg In 150 ml @ 100 mls/hr IVPB Q24H [facility] Rx#:[id number] Zosyn Premix 3.375 GM/200 ML 3. 200 / 200 200 / 200 375 gm In 200 ml @ 50 mls/hr IVPB Q8H [facility] Rx#:[id number] KCl 40 MEQ Xylocaine 2 ML In 522 / 522 Dextrose 5% 500 ML @ 130.5 mls/ hr IVPB ONCE ONE Rx#:[id number] Oral 240 / 240 0 / 0 Output: Urine 300 / 300 300 / 300 Other: Meal NPO NPO for breakfast # Bowel Movements 0 Weight 68.492 kg Blood Glucose* 112 111 Patient Weight 07/01/17 23:59 Weight 68.492 kg - General physical appearance well developed, no distress - Eyes normal ocular movement - ENT normal mucosa, atraumatic, normocephalic - Neck Neck exam: trachea midline - Respiratory normal respiratory effort, clear to auscultation, other (diminished bibasilar bases) - Cardiovascular Cardiovascular exam: Present: irregular rhythm (atrial fibrillation- rate controlled) - Abdomen Abdomen: Present: bowel sounds present (minimal, hypoactive), soft, distended ( mild distention), tender (mild incisional tenderness- expected) - Incision Incision: Present: clean and dry, intact - Neurologic CN 2-12 grossly intact - Musculoskeletal other (moderate deconditioning) - Psychiatric oriented to time, oriented to person, oriented to place, speech is normal, memory intact - Labs 07/01/17 04:35 07/01/17 04:35 Diabetes panel 07/01/17 Range/Units 04:35 Sodium 136 (136-145) mEq/L Potassium 3.5 (3.5-4.5) mEq/L Chloride 109 (98-109) mEq/L Carbon Dioxide 21 (19-29) mEq/L BUN 26 H (7-20) mg/dL Creatinine 0.65 (0.57-1.11) mg/dL Glucose 91 (70-99) mg/dL Calcium 7.1 L (8.6-10.8) mg/dL Calcium panel 07/01/17 Range/Units 04:35 Calcium 7.1 L (8.6-10.8) mg/dL Phosphorus 2.5 (2.3-4.7) mg/dL Pituitary panel 07/01/17 Range/Units 04:35 Sodium 136 (136-145) mEq/L Potassium 3.5 (3.5-4.5) mEq/L Chloride 109 (98-109) mEq/L Carbon Dioxide 21 (19-29) mEq/L BUN 26 H (7-20) mg/dL Creatinine 0.65 (0.57-1.11) mg/dL Glucose 91 (70-99) mg/dL Calcium 7.1 L (8.6-10.8) mg/dL Adrenal panel 07/01/17 Range/Units 04:35 Sodium 136 (136-145) mEq/L Potassium 3.5 (3.5-4.5) mEq/L Chloride 109 (98-109) mEq/L Carbon Dioxide 21 (19-29) mEq/L BUN 26 H (7-20) mg/dL Creatinine 0.65 (0.57-1.11) mg/dL Glucose 91 (70-99) mg/dL Calcium 7.1 L (8.6-10.8) mg/dL - VTE Documentation of Mechanical Device: Intermittent pneumatic compression device Consult Discharge Plan - Plan Referrals: Sara Pfeiffer REAL ESTATE UTILIZATION OFFICER [Primary Care Provider] - (Office will not make a followup appointment until we have a discharge order) Anna Martinez CNP [Advanced Practice Nurse] - (Cardiology office will call patient at home with follow up appointment) Prescriptions: Apixaban [Eliquis] 5 mg PO BID #60 tablet Diltiazem CD (24hr) [Cardizem CD] 120 mg PO DAILY #30 cap.er.24h - Attending Attestation For this encounter, I have reviewed the ENGAGEMENT SPECIALIST or PA documentation, treatment plan, and medical decision making; and I have had face to face time with this patient.
[2017-07-01] MEDS: Fluconazole 100 MG/50 ML 100 MG/50 ML BAG IVPB SCH (10:20)
[2017-07-01] MEDS ORDERED: Clinimix E 5%-15% SOLUTION 2,000 ML with MVI, adult with vitamin K 10 ML IVC SCH (17:00)
[2017-07-02] MEDS: *HR* Metoprolol 5 MG/5 ML VIAL IVP SCH ×4 (02:03→19:37)
[2017-07-02] MEDS: Metoclopramide 10 MG/2 ML VIAL IVP SCH ×4 (02:03→18:01)
[2017-07-02 05:20] LABS: Basophils % 0.3 %; Eosinophils % 0.3 %; Hemoglobin 7.9 g/dL (11.5-15.4); Immature Granulocytes % 1.6 % (0-4); Lymphocytes # 0.8 K/mcL (0.6-4.6); Lymphocytes % 5.9 %; Mean Corpuscular HGB Conc 31.6 g/dL (31.6-35.5); Mean Corpuscular Hemoglobin 27.1 pg (28.0-33.3); Mean Corpuscular Volume 85.6 fL (83.0-100.0); Mean Platelet Volume 9.8 fL (9.4-12.4); Monocytes # 0.7 K/mcL (0.0-1.3); Monocytes % 5.2 %; Neutrophils # 12.4 K/mcL (1.6-8.9); Platelet Count 489 K/mcL (140-400); Red Blood Count 2.92 M/mcL (3.82-4.97); Segmented Neutrophils % 86.7 %
[2017-07-02 05:21] LABS: BUN/Creatinine Ratio 38 (6-26); Blood Urea Nitrogen 25 mg/dL (7-20); Calcium 7.9 mg/dL (8.6-10.8); Carbon Dioxide 22 mEq/L (19-29); Chloride 107 mEq/L (98-109); Glucose 118 mg/dL (70-99); Magnesium 2.1 mg/dL (1.6-2.6); Osmolality,Calculated 283 (280-300); Phosphorous 2.5 mg/dL (2.3-4.7); Potassium 3.7 mEq/L (3.5-4.5); Sodium 134 mEq/L (136-145); eGFR For African Americans > 60 (> 60); eGFR For Non-African Americans > 60 (> 60)
[2017-07-02] MEDS: Pantoprazole 40 MG VIAL IVP SCH (06:33)
[2017-07-02] MEDS: *HR* Enoxaparin 80 MG/0.8 ML SYRINGE SQ SCH ×2 (06:34→18:00)
[2017-07-02] MEDS: Fluconazole 100 MG/50 ML 100 MG/50 ML BAG IVPB SCH (09:29)
--- NOTE | 2017-07-02 10:55 | General Surgery Progress Note ---
Date of Encounter: 07/02/17 Time of Encounter: 10:25 - Assessment and Plan (1) Postoperative ileus Current Visit: Yes Status: Acute - Postoperative day #16 following a robotic ascending colectomy - Pathology showing adenocarcinoma invading pericolonic adipose tissue, nodes negative - Reports 4 BM yesterday loose in nature - Will advance to clear liquid diet today and advance as tolerated. - Clinically improving. Will continue supportive care. Continue TPN for another day. - Encourage ambulation, IS q1hr, PT/OT (2) Colonic mass Current Visit: Yes Status: Acute As above, status post right colectomy postoperative day #16 (3) Electrolyte imbalance Current Visit: Yes Status: Resolved - Potassium of 4.0. At desired levels >4 - Most likely secondary to decreased oral intake - We will continue to monitor. Magnesium at appropriate levels of 2.1 (4) Moderate protein-calorie malnutrition Current Visit: Yes Status: Acute Continue TPN at 60 mL/h - Dietitian consultation (5) DVT prophylaxis Current Visit: Yes Status: Acute Lovenox 70 mg every 12 hours Subjective Patient reports: no new complaints, pain is less Narrative: She was seen and examined at bedside this morning. She states that she is feeling about the same as previous. She has not been experiencing a few flatus and reports 4 bowel movements yesterday. Denies any symptoms of nausea, vomiting but is mildly tender diffusely. She is tolerating her ice chip diet well Objective Vital Signs - Last 8 Hours Temp Pulse Resp BP Pulse Ox 07/02/17 08:07 98.7 F 78 17 114/71 96 07/02/17 04:02 99.0 F 111 14 118/69 94 Intake and Output 07/01/17 07/02/17 07/02/17 23:59 07:59 15:59 Intake Total 0 / 0 0 / 0 0 / 0 Output Total 400 / 400 200 / 200 0 / 0 Balance -400 / -400 -200 / -200 0 / 0 Intake: Oral 0 / 0 0 / 0 0 / 0 Output: Urine 400 / 400 200 / 200 0 / 0 Other: Meal NPO for supper Breakfast NPO Stool Size Small Small Stool Consistency loose loose liquid Stool Color Brown # Bowel Movements 1 Weight 68.356 kg Blood Glucose* 144 125 141 Patient Weight 07/02/17 23:59 Weight 68.356 kg - General physical appearance well developed, well nourished, no distress - Respiratory normal expansion, normal respiratory effort, clear to auscultation - Cardiovascular Cardiovascular exam: Present: RRR, no murmurs/rubs/gallops - Abdomen Abdomen: Present: soft, distended, tender. Absent: bowel sounds present Abdominal Tenderness: diffusely - Labs 07/02/17 04:21 07/02/17 04:21 Diabetes panel 07/02/17 Range/Units 04:21 Sodium 134 L (136-145) mEq/L Potassium 3.7 (3.5-4.5) mEq/L Chloride 107 (98-109) mEq/L Carbon Dioxide 22 (19-29) mEq/L BUN 25 H (7-20) mg/dL Creatinine 0.66 (0.57-1.11) mg/dL Glucose 118 H (70-99) mg/dL Calcium 7.9 L (8.6-10.8) mg/dL Calcium panel 07/02/17 Range/Units 04:21 Calcium 7.9 L (8.6-10.8) mg/dL Phosphorus 2.5 (2.3-4.7) mg/dL Pituitary panel 07/02/17 Range/Units 04:21 Sodium 134 L (136-145) mEq/L Potassium 3.7 (3.5-4.5) mEq/L Chloride 107 (98-109) mEq/L Carbon Dioxide 22 (19-29) mEq/L BUN 25 H (7-20) mg/dL Creatinine 0.66 (0.57-1.11) mg/dL Glucose 118 H (70-99) mg/dL Calcium 7.9 L (8.6-10.8) mg/dL Adrenal panel 07/02/17 Range/Units 04:21 Sodium 134 L (136-145) mEq/L Potassium 3.7 (3.5-4.5) mEq/L Chloride 107 (98-109) mEq/L Carbon Dioxide 22 (19-29) mEq/L BUN 25 H (7-20) mg/dL Creatinine 0.66 (0.57-1.11) mg/dL Glucose 118 H (70-99) mg/dL Calcium 7.9 L (8.6-10.8) mg/dL - VTE Documentation of Mechanical Device: Intermittent pneumatic compression device Consult Discharge Plan - Plan Referrals: Sara Pfeiffer, LITERACY EDUCATION PROFESSOR [Primary Care Provider] - (Office will not make a followup appointment until we have a discharge order) Anna Martinez CNP [Advanced Practice Nurse] - (Cardiology office will call patient at home with follow up appointment) Prescriptions: Apixaban [Eliquis] 5 mg PO BID #60 tablet Diltiazem CD (24hr) [Cardizem CD] 120 mg PO DAILY #30 cap.er.24h
[2017-07-02] MEDS ORDERED: Clinimix E 5%-15% SOLUTION 2,000 ML with MVI, adult with vitamin K 10 ML IVC SCH (17:00)
[2017-07-03] MEDS: Metoclopramide 10 MG/2 ML VIAL IVP SCH ×4 (01:05→18:47)
[2017-07-03] MEDS: *HR* Metoprolol 5 MG/5 ML VIAL IVP SCH ×4 (01:05→18:46)
[2017-07-03 04:55] LABS: Basophils # 0.1 K/mcL (0.0-0.2); Basophils % 0.5 %; Eosinophils # 0.1 K/mcL (0.0-0.6); Eosinophils % 0.9 %; Hematocrit 24.5 % (35.3-44.9); Hemoglobin 7.9 g/dL (11.5-15.4); Immature Granulocytes % 3.1 % (0-4); Lymphocytes % 7.6 %; Mean Corpuscular HGB Conc 32.2 g/dL (31.6-35.5); Mean Corpuscular Hemoglobin 27.4 pg (28.0-33.3); Mean Corpuscular Volume 85.1 fL (83.0-100.0); Monocytes # 1.2 K/mcL (0.0-1.3); Monocytes % 9.2 %; Neutrophils # 10.3 K/mcL (1.6-8.9); Platelet Count 539 K/mcL (140-400); Red Blood Count 2.88 M/mcL (3.82-4.97); Red Cell Distribution Width 19.8 % (11.5-14.5); Segmented Neutrophils % 78.7 %
[2017-07-03 05:08] LABS: BUN/Creatinine Ratio 41 (6-26); Blood Urea Nitrogen 25 mg/dL (7-20); Calcium 8.3 mg/dL (8.6-10.8); Carbon Dioxide 23 mEq/L (19-29); Chloride 107 mEq/L (98-109); Glucose 110 mg/dL (70-99); Osmolality,Calculated 281 (280-300); Sodium 133 mEq/L (136-145); eGFR For African Americans > 60 (> 60); eGFR For Non-African Americans > 60 (> 60)
[2017-07-03] MEDS: Pantoprazole 40 MG VIAL IVP SCH (06:07)
[2017-07-03] MEDS: *HR* Enoxaparin 80 MG/0.8 ML SYRINGE SQ SCH ×2 (06:07→18:47)
[2017-07-03] MEDS: Fluconazole 100 MG/50 ML 100 MG/50 ML BAG IVPB SCH (09:20)
--- NOTE | 2017-07-03 10:22 | General Surgery Progress Note ---
Date of Encounter: 07/03/17 Time of Encounter: 08:00 - Assessment and Plan (1) Postoperative ileus Current Visit: Yes Status: Acute - Postoperative day #17 following a robotic ascending colectomy - Pathology showing adenocarcinoma invading pericolonic adipose tissue, nodes negative - Reports 2 BM yesterday loose in nature - Will advance to a full liquid diet today and advance as tolerated - Clinically improving. Will continue supportive care. We will discontinue TPN - Encourage ambulation, IS q1hr, PT/OT (2) Colonic mass Current Visit: Yes Status: Acute As above, status post right colectomy postoperative day #16 (3) Electrolyte imbalance Current Visit: Yes Status: Resolved - Potassium of 4.0. At desired levels >4 - Most likely secondary to decreased oral intake - We will continue to monitor. Magnesium at appropriate levels of 2.1 (4) Moderate protein-calorie malnutrition Current Visit: Yes Status: Acute Continue TPN at 60 mL/h - Dietitian consultation We will likely discontinue TPN today if able to tolerate full liquid diet (5) DVT prophylaxis Current Visit: Yes Status: Acute Lovenox 70 mg every 12 hours Subjective Patient reports: no new complaints, feels better, pain is less, tolerating liquids well, voiding w/o difficulty, flatus, bowel movement Narrative: Patient was seen and examined at bedside this morning. She states that she is feeling improved from yesterday and has been tolerating her clear liquid diet without any complications. She denies any symptoms of nausea, vomiting, pain. She has been ambulating in the hallway and in her room without difficulty. She will be advanced to full liquid diet this afternoon Objective Vital Signs - Last 8 Hours Temp Pulse Resp BP Pulse Ox 07/03/17 04:14 98.1 F 102 14 124/77 97 Intake and Output 07/02/17 07/03/17 07/03/17 23:59 07:59 15:59 Intake Total 120 / 120 0 / 0 Output Total 300 / 300 400 / 400 Balance -180 / -180 -400 / -400 Intake: Oral 120 / 120 0 / 0 Output: Urine 0 / 0 400 / 400 Urine/Stool Mix 300 / 300 Other: Meal Dinner Blood Glucose* 125 145 - General physical appearance well developed, well nourished, no distress - Respiratory normal expansion, normal respiratory effort, clear to auscultation - Cardiovascular Cardiovascular exam: Present: RRR, no murmurs/rubs/gallops - Abdomen Abdomen: Present: bowel sounds present, soft, tender Abdominal Tenderness: diffusely (Mild) - Labs 07/03/17 04:32 07/03/17 04:32 Diabetes panel 07/03/17 Range/Units 04:32 Sodium 133 L (136-145) mEq/L Potassium 4.0 (3.5-4.5) mEq/L Chloride 107 (98-109) mEq/L Carbon Dioxide 23 (19-29) mEq/L BUN 25 H (7-20) mg/dL Creatinine 0.61 (0.57-1.11) mg/dL Glucose 110 H (70-99) mg/dL Calcium 8.3 L (8.6-10.8) mg/dL Calcium panel 07/03/17 Range/Units 04:32 Calcium 8.3 L (8.6-10.8) mg/dL Pituitary panel 07/03/17 Range/Units 04:32 Sodium 133 L (136-145) mEq/L Potassium 4.0 (3.5-4.5) mEq/L Chloride 107 (98-109) mEq/L Carbon Dioxide 23 (19-29) mEq/L BUN 25 H (7-20) mg/dL Creatinine 0.61 (0.57-1.11) mg/dL Glucose 110 H (70-99) mg/dL Calcium 8.3 L (8.6-10.8) mg/dL Adrenal panel 07/03/17 Range/Units 04:32 Sodium 133 L (136-145) mEq/L Potassium 4.0 (3.5-4.5) mEq/L Chloride 107 (98-109) mEq/L Carbon Dioxide 23 (19-29) mEq/L BUN 25 H (7-20) mg/dL Creatinine 0.61 (0.57-1.11) mg/dL Glucose 110 H (70-99) mg/dL Calcium 8.3 L (8.6-10.8) mg/dL - VTE Documentation of Mechanical Device: Intermittent pneumatic compression device Consult Discharge Plan - Plan Referrals: Sara Pfeiffer GUEST SERVICES LEAD [Primary Care Provider] - (Office will not make a followup appointment until we have a discharge order) Anna Martinez GUEST SERVICES LEAD [Advanced Practice Nurse] - (Cardiology office will call patient at home with follow up appointment) Prescriptions: Apixaban [Eliquis] 5 mg PO BID #60 tablet Diltiazem CD (24hr) [Cardizem CD] 120 mg PO DAILY #30 cap.er.24h
[2017-07-03] MEDS ORDERED: Clinimix E 5%-15% SOLUTION 2,000 ML with MVI, adult with vitamin K 10 ML IVC SCH (17:00)
[2017-07-04] MEDS: Metoclopramide 10 MG/2 ML VIAL IVP SCH ×2 (01:28→06:59)
[2017-07-04] MEDS: *HR* Metoprolol 5 MG/5 ML VIAL IVP SCH ×2 (01:28→06:59)
[2017-07-04 06:25] LABS: Basophils # 0.1 K/mcL (0.0-0.2); Basophils % 0.7 %; Eosinophils # 0.2 K/mcL (0.0-0.6); Eosinophils % 1.4 %; Hematocrit 23.4 % (35.3-44.9); Hemoglobin 7.6 g/dL (11.5-15.4); Immature Granulocytes % 4.7 % (0-4); Lymphocytes # 1.4 K/mcL (0.6-4.6); Lymphocytes % 13.4 %; Mean Corpuscular HGB Conc 32.5 g/dL (31.6-35.5); Mean Corpuscular Hemoglobin 27.4 pg (28.0-33.3); Mean Corpuscular Volume 84.5 fL (83.0-100.0); Monocytes # 1.2 K/mcL (0.0-1.3); Monocytes % 11.1 %; Neutrophils # 7.1 K/mcL (1.6-8.9); Platelet Count 548 K/mcL (140-400); Red Blood Count 2.77 M/mcL (3.82-4.97); Red Cell Distribution Width 19.7 % (11.5-14.5); Segmented Neutrophils % 68.7 %
[2017-07-04 06:58] LABS: BUN/Creatinine Ratio 43 (6-26); Blood Urea Nitrogen 25 mg/dL (7-20); Calcium 8.2 mg/dL (8.6-10.8); Carbon Dioxide 20 mEq/L (19-29); Chloride 106 mEq/L (98-109); Glucose 103 mg/dL (70-99); Magnesium 1.7 mg/dL (1.6-2.6); Osmolality,Calculated 281 (280-300); Phosphorous 3.5 mg/dL (2.3-4.7); Potassium 4.2 mEq/L (3.5-4.5); Sodium 133 mEq/L (136-145); eGFR For African Americans > 60 (> 60); eGFR For Non-African Americans > 60 (> 60)
[2017-07-04] MEDS: Pantoprazole 40 MG VIAL IVP SCH (06:59)
[2017-07-04] MEDS: *HR* Enoxaparin 80 MG/0.8 ML SYRINGE SQ SCH (06:59)
[2017-07-04] MEDS ORDERED: Furosemide 20 MG/2 ML VIAL IVP ONE (10:16)
--- NOTE | 2017-07-04 10:20 | General Surgery Progress Note ---
Date of Encounter: 07/04/17 Time of Encounter: 09:30 - Assessment and Plan (1) Postoperative ileus Current Visit: Yes Status: Acute She is tolerating her full liquid diet. She is getting up to the bedside commode that states that ambulating in the room is difficult due to all of the IV fluid connections. Her and her daughter will be able to provide 24- hour care when she goes home. She refuses home healthcare. 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 - Full liquid diet, advances tolerated. Add [place] instant breakfast ( chocolate or strawberry per patient request) - Clinically improving. Wean TPN by 50% now. Stop at 5 PM. -She is slightly fluid overloaded given fine crackles in her bases and pitting edema. Will treat with IV lasix 20 mg x1 dose now. Will stop TPN as above. -If she continues to tolerate her diet, have bowel movements, and no nausea or vomiting, we will anticipate DC in the next 24 hours. (2) Colonic mass Current Visit: Yes Status: Acute See plan above (3) New onset a-fib Current Visit: Yes Status: Acute NSR at this time. At discharge: D/C Lovenox Home on Cardizem 120mg PO daily Eliquis 5mg PO BID (I sent this to pharmacy for pricing. Will start this pm if applicable) (4) Electrolyte imbalance Current Visit: Yes Status: Resolved Replace electrolytes as indicated. (5) Anemia Current Visit: Yes Status: Chronic No overt signs of bleeding noted. Continue to monitor Qualifiers: Anemia type: other cause Other causes of anemia: chronic disease, other Qualified Code(s): D63.8 - Anemia in other chronic diseases classified elsewhere (6) Fluid overload Current Visit: Yes Status: Acute Will treat with lasix x1 dose Qualifiers: Hypervolemia type: unspecified Qualified Code(s): E87.70 - Fluid overload, unspecified Subjective Patient reports: no new complaints, feels better, pain is less, tolerating liquids well, voiding w/o difficulty, flatus, bowel movement, afebrile Narrative: Jane states she feels considerably better. She is having liquid bowel movements, passing flatus with bowel movements, denies nausea, vomiting, or abdominal discomfort. She requests a strawberry or a peach yogurt this morning. She states she is beginning to get an appetite back. She states she does not like the taste of Ensure or Boost but is willing to try [place] instant breakfast. Objective Vital Signs - Last 8 Hours Temp Pulse Resp BP Pulse Ox 07/04/17 07:06 98.0 F 90 16 120/74 97 07/04/17 04:42 98.1 F 102 14 134/64 95 Intake and Output 07/03/17 07/04/17 07/04/17 23:59 07:59 15:59 Intake Total 360 / 360 250 / 250 360 / 360 Output Total 600 / 600 0 / 0 Balance -240 / -240 250 / 250 360 / 360 Intake: IV Fluids 250 / 250 Intralipid 20% 250 ML @ 21 mls/ 250 / 250 hr IVPB DAILY@1700 [facility] Rx#: [id number] Oral 360 / 360 0 / 0 360 / 360 Output: Urine 0 / 0 Urine/Stool Mix 600 / 600 Other: Meal Dinner Breakfast Percent of Meal Consumed 25% # Voids 1 Weight 68.34 kg Blood Glucose* 126 141 Patient Weight 07/04/17 23:59 Weight 68.34 kg - General physical appearance well nourished, no distress - ENT normal mucosa, atraumatic, normocephalic - Neck Neck exam: trachea midline, other (Mild venous distention.) - Respiratory normal expansion, normal respiratory effort crackles: bilateral (Mild, fine in the bases) - Cardiovascular Cardiovascular exam: Present: RRR, murmurs, JVD Addtional Comments: 3+ pitting edema to BLLE up to the knees. Non-pitting edema to the pelvis - Abdomen Abdomen: Present: bowel sounds present, soft, non tender, distended Hernia: none - Incision Incision: Present: clean and dry, intact - Integumentary no abnormal pigmentation - Neurologic normal sensation - Musculoskeletal normal posture - Psychiatric oriented to time, oriented to person, oriented to place, speech is normal, memory intact - Labs 07/04/17 06:13 07/04/17 06:13 Diabetes panel 07/04/17 Range/Units 06:13 Sodium 133 L (136-145) mEq/L Potassium 4.2 (3.5-4.5) mEq/L Chloride 106 (98-109) mEq/L Carbon Dioxide 20 (19-29) mEq/L BUN 25 H (7-20) mg/dL Creatinine 0.58 (0.57-1.11) mg/dL Glucose 103 H (70-99) mg/dL Calcium 8.2 L (8.6-10.8) mg/dL Calcium panel 07/04/17 Range/Units 06:13 Calcium 8.2 L (8.6-10.8) mg/dL Phosphorus 3.5 (2.3-4.7) mg/dL Pituitary panel 07/04/17 Range/Units 06:13 Sodium 133 L (136-145) mEq/L Potassium 4.2 (3.5-4.5) mEq/L Chloride 106 (98-109) mEq/L Carbon Dioxide 20 (19-29) mEq/L BUN 25 H (7-20) mg/dL Creatinine 0.58 (0.57-1.11) mg/dL Glucose 103 H (70-99) mg/dL Calcium 8.2 L (8.6-10.8) mg/dL Adrenal panel 07/04/17 Range/Units 06:13 Sodium 133 L (136-145) mEq/L Potassium 4.2 (3.5-4.5) mEq/L Chloride 106 (98-109) mEq/L Carbon Dioxide 20 (19-29) mEq/L BUN 25 H (7-20) mg/dL Creatinine 0.58 (0.57-1.11) mg/dL Glucose 103 H (70-99) mg/dL Calcium 8.2 L (8.6-10.8) mg/dL - VTE Documentation of Mechanical Device: Intermittent pneumatic compression device Consult Discharge Plan - Plan Referrals: Sara Pfeiffer DEPUTY EDITOR IN [employer]IE[employer] [Primary Care Provider] - (Office will not make a followup appointment until we have a discharge order) Anna Martinez CNP [Advanced Practice Nurse] - (Cardiology office will call patient at home with follow up appointment) Prescriptions: Apixaban [Eliquis] 5 mg PO BID #60 tablet Diltiazem CD (24hr) [Cardizem CD] 120 mg PO DAILY #30 cap.er.24h
[2017-07-04] MEDS: Fluconazole 200 MG/100 ML 100 MG/50 ML BAG IVPB SCH (11:11)
[2017-07-04] MEDS: APIXABAN 5 MG TABLET PO SCH (20:26)
[2017-07-04] MEDS: Artificial Tears SOLN 15 ML BOTTLE BOTH EYES PRN (21:42)
[2017-07-05 04:39] LABS: Hematocrit 23.8 % (35.3-44.9); Hemoglobin 7.6 g/dL (11.5-15.4); Mean Corpuscular HGB Conc 31.9 g/dL (31.6-35.5); Mean Corpuscular Volume 84.7 fL (83.0-100.0); Mean Platelet Volume 9.9 fL (9.4-12.4); Platelet Count 555 K/mcL (140-400); Red Blood Count 2.81 M/mcL (3.82-4.97); Red Cell Distribution Width 19.1 % (11.5-14.5)
[2017-07-05 04:47] LABS: Blood Urea Nitrogen 27 mg/dL (7-20); Calcium 8.6 mg/dL (8.6-10.8); Carbon Dioxide 19 mEq/L (19-29); Chloride 104 mEq/L (98-109); Glucose 96 mg/dL (70-99); Osmolality,Calculated 279 (280-300); Potassium 4.7 mEq/L (3.5-4.5); Sodium 132 mEq/L (136-145)
[2017-07-05 04:59] LABS: BUN/Creatinine Ratio 42 (6-26); eGFR For African Americans > 60 (> 60); eGFR For Non-African Americans > 60 (> 60)
[2017-07-05 05:12] LABS: Eosinophils # 0.4 K/mcL (0.0-0.6); Monocytes # 0.9 K/mcL (0.0-1.3); Neutrophils # 7.8 K/mcL (1.6-8.9); Platelet Estimate Increased (Normal); Toxic Granulation Present (Not Present)
[2017-07-05] MEDS: Pantoprazole 40 MG VIAL IVP SCH (06:12)
[2017-07-05] MEDS: APIXABAN 5 MG TABLET PO SCH (09:09)
[2017-07-05] MEDS ORDERED: Furosemide 40 MG/4 ML VIAL IVP ONE (09:31)
[2017-07-05] MEDS ORDERED: Metoclopramide 10 MG/2 ML VIAL IVP ONE (09:31)
[2017-07-05] MEDS: Fluconazole 200 MG/100 ML 100 MG/50 ML BAG IVPB SCH (10:15)
[2017-07-05] MEDS: Artificial Tears SOLN 15 ML BOTTLE BOTH EYES PRN (10:24)
[2017-07-05 10:42] VITALS: BP 144/68
--- NOTE | 2017-07-05 12:14 | General Surgery Progress Note ---
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 She is ambulating in halls and getting up to bedside commode. She has normal bowel sounds in all 4 quadrants, is not tympanic, and feels like she needs to have a BM. She denies passing flatus. An acute abdominal series was obtained which revealed diffuse airfield fluid loops a small bowel throughout the abdomen related to ileus versus small bowel obstruction. Plan: - Full liquid diet, advances tolerated. [place] instant breakfast (chocolate or strawberry per patient request) -Mag citrate -She is remains fluid overloaded given pitting edema. Will treat with IV lasix 20 mg x1 dose now. -Although we had originally planned to possibly d/c today, given above she will need to remain in the hospital for another 24-48 hours for observation related to postoperative ileus. (2) Colonic mass Current Visit: Yes Status: Acute See plan above (3) New onset a-fib Current Visit: Yes Status: Acute NSR at this time. At discharge: Eliquis and Diltiazem were initiated 07/04/2017. Transition to SR diltiazem in the am (4) Electrolyte imbalance Current Visit: Yes Status: Resolved Replace electrolytes as indicated. Repeat am labs (5) Anemia Current Visit: Yes Status: Chronic No overt signs of bleeding noted. Continue to monitor Qualifiers: Anemia type: other cause Other causes of anemia: chronic disease, other Qualified Code(s): D63.8 - Anemia in other chronic diseases classified elsewhere (6) Fluid overload Current Visit: Yes Status: Acute Will repeat with lasix x1 dose Qualifiers: Hypervolemia type: unspecified Qualified Code(s): E87.70 - Fluid overload, unspecified Subjective Patient reports: no new complaints, tolerating liquids well, voiding w/o difficulty, no flatus, bowel movement (BM on 07/04/2017), afebrile Narrative: Noted per chart review a call to Dr. Urias regarding patient with burping and bloating. Denies nausea, vomiting, or return of symptoms of prior ileus. She reports feeling of fullness and swelling in her legs and abdomen. Objective Vital Signs - Last 8 Hours Temp Pulse Resp BP Pulse Ox 07/05/17 10:39 97.6 F 86 15 144/68 98 07/05/17 06:54 97.5 F L 89 16 120/69 97 07/05/17 04:26 97.9 F 100 14 114/65 94 Intake and Output 07/04/17 07/05/17 07/05/17 23:59 07:59 15:59 Intake Total 903 / 903 0 / 0 460 / 460 Output Total 900 / 900 400 / 400 0 / 0 Balance 3 / 3 -400 / -400 460 / 460 Intake: IV Fluids 303 / 303 50 / 50 Clinimix E 5%-15% SOLUTION 2, 303 / 303 000 ML @ 83.3 mls/hr IVC .Q24H [facility] with M.v.i. Adult 10 ml Rx# :[id number] Diflucan Premix 200 MG/100 ML 50 / 50 100 mg In 50 ml @ 50 mls/hr IVPB DAILY [facility] Rx#:[id number] Oral 600 / 600 0 / 0 410 / 410 Output: Urine 100 / 100 400 / 400 0 / 0 Urine/Stool Mix 800 / 800 Other: Meal Dinner Breakfast Percent of Meal Consumed 25% 20% Weight 68.266 kg Blood Glucose* 104 100 Patient Weight 07/05/17 23:59 Weight 68.266 kg - General physical appearance no distress, no pain - Eyes normal ocular movement - ENT atraumatic, normocephalic - Neck Neck exam: trachea midline, no venous distension (While sitting upright in chair at bedside) - Respiratory normal expansion, normal respiratory effort, clear to auscultation - Cardiovascular Cardiovascular exam: Present: RRR, murmurs Addtional Comments: 2+ pitting edema to BLE extremities, slightly improved from yesterday. - Abdomen Abdomen: Present: bowel sounds present, soft, distended (vs edema ) Hernia: none - Incision Incision: Present: clean and dry, intact - Integumentary no rash, no growths - Neurologic normal coordination, normal sensation - Musculoskeletal normal posture - Psychiatric oriented to time, oriented to person, oriented to place, speech is normal, memory intact - Labs 07/05/17 04:00 07/05/17 04:00 Diabetes panel 07/05/17 Range/Units 04:00 Sodium 132 L (136-145) mEq/L Potassium 4.7 H (3.5-4.5) mEq/L Chloride 104 (98-109) mEq/L Carbon Dioxide 19 (19-29) mEq/L BUN 27 H (7-20) mg/dL Creatinine 0.65 (0.57-1.11) mg/dL Glucose 96 (70-99) mg/dL Calcium 8.6 (8.6-10.8) mg/dL Calcium panel 07/05/17 Range/Units 04:00 Calcium 8.6 (8.6-10.8) mg/dL Pituitary panel 07/05/17 Range/Units 04:00 Sodium 132 L (136-145) mEq/L Potassium 4.7 H (3.5-4.5) mEq/L Chloride 104 (98-109) mEq/L Carbon Dioxide 19 (19-29) mEq/L BUN 27 H (7-20) mg/dL Creatinine 0.65 (0.57-1.11) mg/dL Glucose 96 (70-99) mg/dL Calcium 8.6 (8.6-10.8) mg/dL Adrenal panel 07/05/17 Range/Units 04:00 Sodium 132 L (136-145) mEq/L Potassium 4.7 H (3.5-4.5) mEq/L Chloride 104 (98-109) mEq/L Carbon Dioxide 19 (19-29) mEq/L BUN 27 H (7-20) mg/dL Creatinine 0.65 (0.57-1.11) mg/dL Glucose 96 (70-99) mg/dL Calcium 8.6 (8.6-10.8) mg/dL - VTE Documentation of Mechanical Device: Graduated compression elastic hosiery Consult Discharge Plan - Plan Referrals: Sara Pfeiffer TRIMMER CLIMBER [Primary Care Provider] - (Office will not make a followup appointment until we have a discharge order) Anna Martinez CNP [Advanced Practice Nurse] - (Cardiology office will call patient at home with follow up appointment) Prescriptions: Diltiazem CD (24hr) [Cardizem CD] 120 mg PO DAILY #30 cap.er.24h
--- NOTE | 2017-07-05 14:13 | Discharge Summary ---
Date of Encounter: 07/05/17 Time of Encounter: 14:00 - Discharge Diagnosis (1) Colonic mass Priority: Primary Status: Resolved (2) Postoperative ileus Priority: Secondary Status: Resolved (3) GERD (gastroesophageal reflux disease) Priority: Secondary Status: Chronic Qualifiers: Esophagitis presence: esophagitis presence not specified Qualified Code(s) : K21.9 - Gastro-esophageal reflux disease without esophagitis (4) New onset a-fib Priority: Secondary Status: Acute (5) Electrolyte imbalance Priority: Secondary Status: Resolved (6) Moderate protein-calorie malnutrition Priority: Secondary Status: Acute (7) Anemia Priority: Secondary Status: Chronic Qualifiers: Anemia type: other cause Other causes of anemia: chronic disease, other Qualified Code(s): D63.8 - Anemia in other chronic diseases classified elsewhere - Discharge Medications Prescriptions: Apixaban [Eliquis] 5 mg PO BID #60 tablet Diltiazem SR (12hr) [Cardizem SR] 120 mg PO BID #120 cap.er.12h Docusate [Colace] 100 mg PO BID #60 capsule Home Medications: Lansoprazole [Prevacid] 30 mg PO DAILY 12/02/15 [History] Multivitamin [Multivitamins] 1 cap PO DAILY 12/02/15 [History] Aspirin [Lo-Dose Aspirin EC] 81 mg PO DAILY 04/02/16 [History] Cholecalciferol (D-3) [Vitamin D] 5,000 unit PO DAILY 04/02/16 [History] Calcium Carb/Vitamin D3/Vit K1 [Calcium + D Soft Chewable Tab] 2 each PO DAILY 11/09/16 [History] Apixaban [Eliquis] 5 mg PO BID #60 tablet 07/05/17 [Rx] Diltiazem SR (12hr) [Cardizem SR] 120 mg PO BID #120 cap.er.12h 07/05/17 [Rx] Docusate [Colace] 100 mg PO BID #60 capsule 07/05/17 [Rx] Allergies/Adverse Reactions: 3 Allergy/AdvReac Type Severity Reaction Status Date / Time "pain medications" AdvReac See Uncoded 06/16/17 08:04 Comments/ VOMITING General Surgery Exam Initial Vital Signs Temp Pulse Resp BP Pulse Ox 98.4 F 92 16 147/87 99 06/16/17 07:46 06/16/17 07:46 06/16/17 07:46 06/16/17 07:46 06/16/17 07:46 - General physical appearance well developed, well nourished, no distress, no pain - ENT normal mucosa, atraumatic, normocephalic - Neck trachea midline - Respiratory normal respiratory effort, clear to auscultation - Cardiovascular Cardiovascular exam: Present: irregular rhythm - Abdomen Abdomen general surgery: Present: bowel sounds present (hypoactive), soft, non tender, distended (mildly) - Incision Incision: Present: clean and dry, intact - Integumentary Integumentary general surgery: Present: warm and dry - Neurologic Present: CN 2-12 grossly intact - Musculoskeletal Present: normal gait, normal posture - Psychiatric Psychiatric general surgery: Present: appropriate, oriented to person, oriented to place, oriented to time, speech is normal, memory intact Date of admission: 06/16/17 11:14 Primary care physician: Sara Pfeiffer CNP Consults: 06/16/17 11:18 Consult to Nutrition [CONS] Routine Comment: Consulting Provider: NUTRITION Reason for Dietary Consult: MST Score 06/20/17 11:26 Consult to Occupational Therapy [CONS] Routine Comment: Evaluate, develop and implement POC Reason for Consult: Mobilization in DC planning Consult to Physical Therapy [CONS] Routine Comment: Evaluate, develop and implement POC Reason for Consult: Mobilization in DC planning 06/21/17 07:54 Consult to Cardiology [CONS] Routine Comment: Consulting Provider: [facility] [place] Reason for Consult: New onset A Fib Call Completed: No 06/21/17 09:39 Consult to Invasive Line Access Team [CONS] Routine Reason for Consult: Picc Line Insertion Line Type: PICC Time Notified: 09:39 Call Completed: Yes 06/21/17 09:40 consult to magnetic testing technician [Consult to Nutrition] [CONS] Routine Comment: Total fluid rate will be TPN goal Consulting Provider: NUTRITION Reason for Dietary Consult: TPN Start and Manage Discharging clinician: Loi Garcia [facility]) Anticipated date of discharge: 07/05/17 - Patient Status Disposition: Home, Self-Care Condition: Good Functional capacity at discharge: independent ambulation Overall status at discharge: patient is progressing back to baseline - Discharge Instructions Follow Up With: Anna Martinez BUSINESS PLANNING MANAGER [Advanced Practice Nurse] - (F/U 2 weeks- new patient for new onset atrial fibrillation (saw inpatient)) Sara Pfeiffer CNP [Primary Care Provider] - (1 week hospital follow-up) Staci Hernandez CNP [Advanced Practice Nurse] - 07/14/17 11:30 am (surgery follow-up) Additional Instructions: #1 may shower, no tub bath for 2 weeks #2 wash incisions with soap and water and pat dry daily #3 no lifting, pushing, pulling more than 20 pounds for the next 2 weeks #4 no driving until off narcotics for 24 hours and able to safely react in the car #5 may climb stairs without restriction - Diet and Activity Activity: increase activity as tolerated Diet: advance to your usual diet, other (Protein supplements (Ensure of equivalent) 2-3 cans per day) - Hospital Course Hospital course: Ms. Romeo is a 77 year old female who had a colonoscopy complete and was found to have a colonic mass. She was admitted to the hospital and had a robotic assisted ascending colon resection with Dr. Germain. She did experience a prolonged post-operative ileus and GI was ultimately called for recommendations. The patient was started on TPN for nutritional support. She was given a total of 4 doses of neostigmine without significant results. She was taken back to the operating room for a diagnostic laparoscopy for persistent obstructive symptoms. She had EDWINA and pexy of the small bowel to relieve the obstruction (per Dr. Germain). The patient remained on bowel rest while awaiting return of bowel function. Her NG tube was removed with return of bowel function and she was started on a clear liquid diet. She has slowly been advanced to a soft diet and is currently tolerating this without nausea/ vomiting. She is having liquid stools. She denies any pain. She is ambulating the hallways with assistance. Recommended short term rehabilitation but the patient is adament that she would like to go home with her family. Her vital signs are stable and she is afebrile. We will begin discharge planning to home and plan for outpatient follow-up in 1 week. She will need follow-up with her PCP and cardiology for new onset atrial fibrillation. Plan to discharge home on eliquis and cardizem per cardiology recommendation. - Time Spent with Patient Total time spent providing and/or coordinating discharge services: Greater than 30 minutes Labs on day of discharge: Labs from last 24 hours 07/05/17 07/05/17 07/05/17 07:00 04:23 04:00 WBC RBC Hgb Hct MCV MCH MCHC RDW Plt Count MPV Seg Neutrophils % Band Neutrophils % Lymphocytes % Monocytes % Eosinophils % Neutrophils # Lymphocytes # Monocytes # Eosinophils # Toxic Granulation Platelet Estimate Sodium 132 L Potassium 4.7 H Chloride 104 Carbon Dioxide 19 BUN 27 H Creatinine 0.65 Est GFR ( Amer) > 60 Est GFR (Non-Af Amer) > 60 BUN/Creatinine Ratio 42 H Glucose 96 POC Glucose 100 H 102 H Calculated Osmolality 279 L Calcium 8.6 07/05/17 07/05/17 07/04/17 04:00 00:18 20:04 WBC 11.1 RBC 2.81 L Hgb 7.6 L Hct 23.8 L MCV 84.7 MCH 27.0 L MCHC 31.9 RDW 19.1 H Plt Count 555 H MPV 9.9 Seg Neutrophils % 54.0 Band Neutrophils % 16.0 H Lymphocytes % 18.0 Monocytes % 8.0 Eosinophils % 4.0 Neutrophils # 7.8 Lymphocytes # 2.0 Monocytes # 0.9 Eosinophils # 0.4 Toxic Granulation Present A Platelet Estimate Increased H Sodium Potassium Chloride Carbon Dioxide BUN Creatinine Est GFR ( Amer) Est GFR (Non-Af Amer) BUN/Creatinine Ratio Glucose POC Glucose 100 H 104 H Calculated Osmolality Calcium 07/04/17 07/04/17 07/04/17 15:42 10:42 04:39 WBC RBC Hgb Hct MCV MCH MCHC RDW Plt Count MPV Seg Neutrophils % Band Neutrophils % Lymphocytes % Monocytes % Eosinophils % Neutrophils # Lymphocytes # Monocytes # Eosinophils # Toxic Granulation Platelet Estimate Sodium Potassium Chloride Carbon Dioxide BUN Creatinine Est GFR ( Amer) Est GFR (Non-Af Amer) BUN/Creatinine Ratio Glucose POC Glucose 124 H 127 H 141 H Calculated Osmolality Calcium 07/03/17 21:11 WBC RBC Hgb Hct MCV MCH MCHC RDW Plt Count MPV Seg Neutrophils % Band Neutrophils % Lymphocytes % Monocytes % Eosinophils % Neutrophils # Lymphocytes # Monocytes # Eosinophils # Toxic Granulation Platelet Estimate Sodium Potassium Chloride Carbon Dioxide BUN Creatinine Est GFR ( Amer) Est GFR (Non-Af Amer) BUN/Creatinine Ratio Glucose POC Glucose 125 H Calculated Osmolality Calcium - Impressions ITS Impressions Abdomen/Pelvis CT 06/16/17 14:00 IMPRESSION: Abnormal circumferential thickening of the wall in the mid ascending colon worrisome for colon carcinoma. No perforation or abscess. Several small local mesenteric lymph nodes. No evident intra-abdominal metastatic disease. Trace amount of pelvic ascites. Mild chronic calcific pancreatitis. No other significant abnormality. D/ / Musa Chaidez MD / Musa Chaidez MD Interpreting Provider: Musa Chaidez MD Chest/Abdomen X-ray 06/20/17 11:28 IMPRESSION: 1. Status post recent right colon surgery. Nonspecific bowel gas pattern, either secondary to a postoperative ileus versus partial obstruction. 2. Suspected small amount of free air in the abdomen, within normal limits for the recent postoperative state. 3. No acute cardiopulmonary disease. D/ / Dimitrios Iraheta MD / Dimitrios Iraheta MD Interpreting Provider: Dimitrios Iraheta MD Chest X-Ray 06/20/17 21:21 IMPRESSION: New right basilar infiltrate with possible effusion concerning for pneumonia. D/ / Petr Gamboa MD / Petr Gamboa MD Interpreting Provider: Petr Gamboa MD Echocardiogram 06/20/17 21:51 Impressions: LVEF 65%. Normal LV chamber size, wall thickness and function. Mild left ventricular diastolic dysfunction. Normal right ventricular structure and function. Mild aortic sclerosis suggested by Doppler. Mean gradient 10 mmHg. Mild tricuspid regurgitation. Moderate pulmonary hypertension. Left Ventricular Wall Motion: Rest Echo Findings All wall segments showed normal motion. Findings: Study Quality * Technically adequate exam. ECG Findings * Sinus tachycardia. Left Ventricle * LVEF 65%. * Normal LV chamber size, wall thickness and function. * Mild left ventricular diastolic dysfunction. Right Ventricle * Normal right ventricular structure and function. Left Atrium * Mildly dilated left atrium. Right Atrium * Normal right atrial size. Interatrial Septum * Interatrial septum not well evaluated. Aortic Valve * Aortic valve not well visualized. * Grossly, mildly sclerotic aortic valve leaflets. * Trace aortic regurgitation. * Mild aortic sclerosis suggested by Doppler. Mean gradient 10 mmHg. Mitral Valve * Normal mitral valve structure and function. * No mitral stenosis. * Trace mitral regurgitation. Tricuspid Valve * Normal tricuspid valve structure. * Mild tricuspid regurgitation. * Moderate pulmonary hypertension. Pulmonic Valve * Normal pulmonic valve structure and function. * No pulmonic regurgitation. Aorta * Normally sized aortic root. Pericardium * The pericardium appears normal. IVC * Normal IVC dimensions and inspiratory collapse. Pulmonary Artery * Normal visualized portions of the main pulmonary artery. ADDENDUM: 06/20/17 1120 Impressions: LVEF 65%. Normal LV chamber size, wall thickness and function. Mild left ventricular diastolic dysfunction. Normal right ventricular structure and function. Mild aortic sclerosis suggested by Doppler. Mean gradient 10 mmHg. Mild tricuspid regurgitation. Moderate pulmonary hypertension. Negative agitated saline study for intra-cardiac shunting. Left Ventricular Wall Motion: Rest Echo Findings All wall segments showed normal motion. Findings: Study Quality * Technically adequate exam. ECG Findings * Sinus tachycardia. Left Ventricle * LVEF 65%. * Normal LV chamber size, wall thickness and function. * Mild left ventricular diastolic dysfunction. Right Ventricle * Normal right ventricular structure and function. Left Atrium * Mildly dilated left atrium. Right Atrium * Normal right atrial size. Interatrial Septum * Negative agitated saline study for intra-cardiac shunting. Aortic Valve * Aortic valve not well visualized. * Grossly, mildly sclerotic aortic valve leaflets. * Trace aortic regurgitation. * Mild aortic sclerosis suggested by Doppler. Mean gradient 10 mmHg. Mitral Valve * Normal mitral valve structure and function. * No mitral stenosis. * Trace mitral regurgitation. Tricuspid Valve * Normal tricuspid valve structure. * Mild tricuspid regurgitation. * Moderate pulmonary hypertension. Pulmonic Valve * Normal pulmonic valve structure and function. * No pulmonic regurgitation. Aorta * Normally sized aortic root. Pericardium * The pericardium appears normal. IVC * Normal IVC dimensions and inspiratory collapse. Pulmonary Artery * Normal visualized portions of the main pulmonary artery. Chest/Abdomen X-ray 06/21/17 11:31 IMPRESSION: 1. No gaseous distended or air-fluid levels in the small bowel. 2. Mild gaseous distention of the ascending and transverse colon. Findings are similar to the prior study. 3. Small amount of oral contrast is identified in the descending colon through rectum. 4. No acute cardiopulmonary disease. D/ / 06/21/2017 12:24:47 Praveena Hogue MD / nolan Interpreting Provider: Praveena Hogue MD Small Bowel X-Ray 06/23/17 14:30 IMPRESSION: 1. Multiple dilated loops of small bowel, measuring up to 4.7 cm in diameter. No evidence of colonic opacification after 15 hours. Differential remains ileus versus distal small bowel obstruction. Recommend follow-up abdominal radiograph to monitor progress of contrast. D/ / 06/24/2017 09:19:44 Joey Chapman MD / Viktoriya Harrell Interpreting Provider: Joey Chapman MD X-Ray 06/24/17 15:33 IMPRESSION: 1. No evidence of small bowel obstruction. Multiple dilated loops of small bowel probably represent an ileus. 2. Colonic and sigmoid diverticulosis. D/ / 06/24/2017 15:58:48 Joey Chapman MD / [facility]olan Interpreting Provider: Joey Chapman MD Chest/Abdomen X-ray 06/25/17 08:00 IMPRESSION: 1. Dilated loops of small bowel. Contrast is present within the colon. Findings are suggestive of ileus. 2. No free intraperitoneal air. D/ / Arnel Madrigal MD / Arnel Madrigal MD Interpreting Provider: Arnel Mardigal MD Abdomen X-Ray 06/26/17 11:17 IMPRESSION: Decreased small bowel distention D/ / Farhat Vargas MD / Farhat Vargas MD Interpreting Provider: Farhat Vargas MD X-Ray 06/27/17 10:22 IMPRESSION: Appropriate esophagogastric tube positioning. D/ / Goldy Butterfield / Goldy Butterfield Interpreting Provider: Goldy Butterfield Chest X-Ray 06/28/17 09:51 IMPRESSION: 1. Stable bibasilar lung infiltrates, likely related to atelectasis versus pneumonia. D/ / 06/28/2017 10:24:53 Dallin Haddad MD / [facility] Interpreting Provider: Dallin Haddad MD Abdomen X-Ray 06/28/17 10:27 IMPRESSION: 1. The orogastric tube tip and side port are noted in the gastric body. 2. Increased distention of small and large bowel, concerning for an ileus versus bowel obstruction. D/ / 06/28/2017 11:28:36 [facility]addad MD [facility] Interpreting Provider: Dallin Haddad MD Abdomen X-Ray 06/29/17 10:27 IMPRESSION: Nasogastric tube in unchanged position. No significant change in dilated small bowel loops in the central abdomen, consistent with ongoing ileus. D/ / 06/29/2017 11:14:23 [facility] / [facility] Inter[facility] Provider: Pedro Sanchez MD Chest/Abdomen X-ray 07/05/17 09:28 IMPRESSION: 1. Right-sided PICC line. 2. No convincing acute cardiopulmonary abnormality. 3. Prominence of the interstitial markings, which could be related to COPD. 4. Diffuse prominent air and fluid-filled loops of small bowel throughout the abdomen. Findings may be related to an ileus versus small-bowel obstruction. D/ / Arnol Hamilton MD / Arnol Hamilton MD Interpreting Provider: Arnol Hamilton MD - Attending Attestation For this encounter, I have reviewed the ROADS SUPERVISOR or PA documentation, treatment plan, and medical decision making; and I have had face to face time with this patient.
[2017-07-05] MEDS ORDERED: Diltiazem SR (12hr) 60 MG CAPSULE PO SCH (21:00)
== END 2017-07-05 16:45 | disposition home or self-care (01) | DRG 329 ==
LOC: ENDPAV 07:29 → 3ANU 07:29 → ENDPAV 10:17 → ICNU 06-24 10:22 → 2NNU 06-25 15:45 → ICNU 06-28 12:48 → 3ANU 06-29 19:27
PROVIDERS: ADMIT Surgery; ATTEND Surgery
PROC: ENDOEBX (2017-06-16 08:40)